=== PATIENT | female | born 1995 | race Caucasian/White ===

== ENCOUNTER 2016-05-24 02:59 | Outpatient (CLI) | payer MEDICAID ==
[2016-05-24 03:22] LABS: APPEARANCE,URINE CLEAR; BILIRUBIN,URINE NEGATIVE (NEGATIVE); GLUCOSE, URINE NEGATIVE (NEGATIVE); KETONES,URINE NEGATIVE (NEGATIVE); LEUKOCYTE ESTERASE,URINE NEGATIVE (NEGATIVE); NITRITE,URINE NEGATIVE (NEGATIVE); PROTEIN,URINE NEGATIVE (NEGATIVE); URINE SPECIFIC GRAVITY 1.014; UROBILINOGEN,URINE NEGATIVE mg/dL (<2.0)
[2016-05-24 03:39] LABS: URINE BARBITURATES SCREEN NEGATIVE; URINE METHADONE SCREEN NEGATIVE; URINE PHENCYCLIDINE SCREEN NEGATIVE
--- NOTE | 2016-05-24 04:45 | L&D Current Admission ---
Current Admit Datetime Report Generated by CPN: 05/24/2016 04:45 ADMISSION INFORMATION Chief Complaint: Contractions (05/24/2016 03:24:Lelo English RN) Chief Complaint: Uterine Cramping (04/18/2016 16:33:Rosanne Mensah RN)
--- NOTE | 2016-05-24 04:45 | L&D Flow Sheet ---
LD Flowsheet Datetime Report Generated by CPN: 05/24/2016 04:45 Datetime: 05/24/2016 03:48 Uterine Activity Monitor Mode: External; Palpation ([facility]) Frequency (min): 6-7 ([facility]) Quality: Mild ([facility], ) Duration (sec): 60-90 ([facility], ) Resting Tone (Palpate): Relaxed ([facility], ) Assessment A Monitor Mode: External US (Lelo Field, RN) FHR Baseline Rate : 115 (Lelo Field, RN) Variability: Moderate 6-25 bpm (Lelo Field, RN) Accelerations: 10X10 (Lelo Field, RN) Decelerations: None (Lelo Field, RN) Patient Care Patient Care Comments: Patient off monitor to walk floor for an hour and be rechecked (Lelo Field, RN) Datetime: 05/24/2016 03:46 Vital Signs NBP Sys/Shayla/Mean (mmHg): 107 (QS system process) : 57 (QS system process) : 76 (QS system process) Pulse: 79 (QS system process) Datetime: 05/24/2016 03:30 Uterine Activity Monitor Mode: External; Palpation (Lelo English RN) Frequency (min): 3.5-4.5 (Lelo English RN) Quality: Mild (Lelo English RN) Duration (sec): 60-110 (Lelo English RN) Resting Tone (Palpate): Relaxed (Lelo Field, RN) Assessment A Monitor Mode: External US (Lelo Field, RN) FHR Baseline Rate : 120 (Lelo Field, RN) Variability: Moderate 6-25 bpm (Lelo Field, RN) Accelerations: 15X15 (Lelo Field, RN) Decelerations: None (Lelo Field, RN) Datetime: 05/24/2016 03:24 Frequency (min): q5 min (Lelo Field, RN) Pain Pain Scale: 3 (Lelo Field, RN) Pain Presence: Intermittent (Lelo Field, RN) Pain Type: Cramping; Sharp (Lelo Field, RN) Pain Location: Abdomen; Back (Lelo Field, RN) Pain Goal: 0 (Lelo Field, RN) Pain Relief Measures: Comfort Measures (Lelo Field, RN) Pain Coping: Talking Through Contractions; Breathing Through Contractions (Lelo Field, RN) Vaginal Bleeding: Normal Show (Lelo Field, RN) Maternal Assessment Level of Consciousness: Fully Conscious (Lelo Field, RN) DTR's/Clonus: DTRs 1+; No Clonus (Lelo Field, RN) Headache: Denies (Lelo Field, RN) Breath Sounds, Left: Clear and Equal (Lelo Field, RN) Breath Sounds, Right: Clear and Equal (Lelo Field, RN) Nausea/Vomiting: Present ([facility], RN) RUQ Epigastric Pain: Denies (Lelo Field, RN) Teaching Instructional Method: Verbal; Patient Instructed; Family/Support Person Instructed; Verbalized Understanding (Lelo English RN) Plan of Care: Plan of Care Discussed (Lelo English RN) Unit Routine: [place] to Room; Call Laguerre; Bed; Visiting Policy; Waiting Areas; Infant Security; Phone/Cell Phone Use; Unit Personnel; Handwashing; Flu/Illness Precautions; Monitoring; Safety/Fall Risk Prevention; Bathroom Privileges (Lelo English RN) Datetime: 05/24/2016 03:19 Vaginal Exam Dilatation (cm): 1.0 (Lelo English RN) Effacement (%): 50 (Lelo English RN) Station: -2 (Lelo English RN) Exam by: TALIB [place] (Lelo English RN) Datetime: 05/24/2016 03:16 Vital Signs NBP Sys/Shayla/Mean (mmHg): 114 (QS system process) : 66 (QS system process) : 84 (QS system process) Pulse: 82 (QS system process)
--- NOTE | 2016-05-24 04:46 | L&D General Admission ---
General Admit Datetime Report Generated by CPN: 05/24/2016 04:45 INFORMATION Patient Age: 21 (04/18/2016 15:56:QS system process) EDC: 05/20/2016 00:00 (04/18/2016 16:04:Rosanne Mensah RN) EDC per Ultrasound: 05/20/2016 00:00 (04/18/2016 16:04:Marge Nino RN) : 4 (04/18/2016 16:04:Rosanne Mensah RN) Para: 1 (04/18/2016 16:04:Rosanne Mensah RN) Term: 1 (04/18/2016 16:04:Rosanne Mensah RN) : 0 (04/18/2016 16:04:Rosanne Mensah RN) Spontaneous Abortions: 2 (04/18/2016 16:04:Rosanne Mensah RN) Livin (04/18/2016 16:04:Rosanne Mensah RN) Cesareans: 0 (04/18/2016 16:04:Rosanne Mensah RN) VBACs: 0 (04/18/2016 16:04:Rosanne Mensah RN) Ectopic: 0 (04/18/2016 16:04:Rosanne Mensah RN) Multiple Births: 0 (04/18/2016 16:04:Rosanne Mensah RN) Baby, Number in Womb: 1 (04/18/2016 16:04:Rosanne Mensah RN) CARE Primary Motor Setter[facility] (04/18/2016 16:04:Lelo English RN) Adequate Care: Yes (04/18/2016 16:04:Rosanne Mensah RN) ALLERGIES Medication Allergy: Yes (04/18/2016 16:04:Lelo English RN) Medication Allergies: Penicillins (04/18/2016); amoxicillin (04/18/2016) (04/18/2016 15:56:QS system process) Latex Allergy: No Latex Allergies (04/18/2016 16:04:Lelo English RN) Food Allergies: N/A (04/18/2016 16:04:Lelo English RN) Environmental Allergies: N/A (04/18/2016 16:04:Lelo English RN) COMMUNICATION Primary Language: Romansh (04/18/2016 16:04:Rosanne Mensah RN) Medical Tx Preferred Language: Romansh (04/18/2016 16:04:Rosanne Mensah RN) Communication Barrier(s): None (04/18/2016 16:04:Lelo English RN) DEMOGRAPHICS Address: [address] [place] [address] (05/24/2016 02:59:QS system process) Address: [address] [place] [id number] (04/18/2016 15:56:QS system process) Zipcode: [address] (05/24/2016 02:59:QS system process) Zipcode: [address] (04/18/2016 15:56:QS system process) Home (04/18/2016 15:56:QS system process) N: [id number] (04/18/2016 15:56:QS system process) Next of Kin Name: JUNE ALICEA (04/18/2016 15:56:QS system process) Next of Kin (04/18/2016 15:56:QS system process) Next of Kin Relationship: OR (04/18/2016 15:56:QS system process) Date of : 1995 (04/18/2016 15:56:QS system process) Marital Status: Single (04/18/2016 15:56:QS system process) Sex: Female (04/18/2016 15:56:QS system process) Race: (04/18/2016 15:56:QS system process) Ethnicity: Non- or (04/18/2016 15:56:QS system process) Anabaptism: None (04/18/2016 15:56:QS system process) DRUG AND ALCOHOL USE Alcohol: No (04/18/2016 16:04:Rosanne Mensah RN) Cigarettes: Former Smoker. [id number] (04/18/2016 16:04:Rosanne Mensah RN) Marijuana: No (04/18/2016 16:04:Rosanne Mensah RN) Cocaine: No (04/18/2016 16:04:Rosanne Mensah RN) Other Illicit Drugs: No (04/18/2016 16:04:Rosanne Mensah RN) VACCINE HISTORY Influenza Vaccine: No (04/18/2016 16:04:Lelo English RN) Pneumococcal Vaccine: No (04/18/2016 16:04:Lelo English RN) Tetanus Vaccine: Yes (04/18/2016 16:04:Rosanne Mensah RN) Tdap Vaccine: Yes (04/18/2016 16:04:Rosanne Mensah RN) Hepatitis B Vaccine: Uncertain (04/18/2016 16:04:Lelo English RN) Automatic Lathe Operator: [facility] (04/18/2016 16:04:Rosanne Mensah RN) Feeding Preference: Breast (04/18/2016 16:04:Rosanne Mensah RN) Benefit of Breast Feed Discussed: Yes (04/18/2016 16:04:Lelo English RN) Circumcision: Yes (04/18/2016 16:04:Lelo English RN) Classes Attended: No (04/18/2016 16:04:Lelo English RN) Tubal Ligation: No (04/18/2016 16:04:Lelo English RN) Tubal Authorization Signed: N/A (04/18/2016 16:04:Lelo English RN) Consent: N/A (04/18/2016 16:04:Lelo English RN) Consent Signed: N/A (04/18/2016 16:04:Lelo English RN) Pain Management Plans: Natural; Medications (04/18/2016 16:04:Rosanne Mensah RN) Plans for Labor and Delivery: None (04/18/2016 16:04:Rosanne Mensah RN) Support Person: June Alicea (04/18/2016 16:04:Lelo English RN) Support Person Relationship: Significant Other (04/18/2016 16:04:Lelo English RN) Cultural/Spritual Practice: No (04/18/2016 16:04:Lelo English RN) Spir/Cult Dietary Needs: No (04/18/2016 16:04:Lelo English RN) LIVING SITUATION/DISCHARGE PLAN Living Arrangements: Apartment (04/18/2016 16:04:Lelo English RN) Adequate Access to:: Electric; Heat; Refrigeration; Plumbing/Running water; Phone; Transportation (04/18/2016 16:04:Lelo English RN) WIC Program: Yes (04/18/2016 16:04:Lelo English RN) Discharge Transfer Table Operator Helper Person: June Alicea (04/18/2016 16:04:Lelo English RN) Person to Help after Discharge: June Alicea (04/18/2016 16:04:Lelo English RN) Currently Using Commun Resources: No (04/18/2016 16:04:Lelo English RN) Outside Agency/Mapping Editor: No (04/18/2016 16:04:Lelo English RN) Car Seat for Discharge: Yes (04/18/2016 16:04:Lelo English RN) Adoption Requested: No (04/18/2016 16:04:Lelo English RN) Pt Contact w/infant Post : N/A (04/18/2016 16:04:Lelo English RN) LABS Blood Type: B Positive (04/18/2016 16:04:Marge Nino RN) Group Beta Strep: positive (04/18/2016 16:04:Marge Nino RN) RPR/VDRL: Nonreactive (04/18/2016 16:04:Marge Nino RN) HIV Exposure Test: Negative (04/18/2016 16:04:Marge Nino RN) Hepatitis B: Negative (04/18/2016 16:04:Marge Nino RN) Rubella: Immune (04/18/2016 16:04:Marge Nino RN) Rubella Titer: 2.43 (04/18/2016 16:04:Marge Nino RN) Varicella: Non Susceptible (04/18/2016 16:04:Marge Nino RN) OB/PREVIOUS HISTORY History of Previous : No (04/18/2016 16:04:Rosanne Mensah RN) History of Gestational Diabetes: No (04/18/2016 16:04:Rosanne Mensah RN) History of PIH: No (04/18/2016 16:04:Rosanne Mensah RN) History of Incompetent Cervix: No (04/18/2016 16:04:Rosanne Mensah RN) History of Placenta Previa/Abrup: No (04/18/2016 16:04:Rosanne Mensah RN) History of Macrosomia: No (04/18/2016 16:04:Rosanne Mensah RN) History of IUGR: No (04/18/2016 16:04:Rosanne Mensah RN) History of Hemorrhage: No (04/18/2016 16:04:Rosanne Mensah RN) History of Loss/Stillborn: No (04/18/2016 16:04:Rosanne Mensah RN) History of : No (04/18/2016 16:04:Rosanne Mensah RN) History of D (Rh) Sensitization: No (04/18/2016 16:04:Rosanne Mensah RN) History Recurrent Loss/Stillborn: No (04/18/2016 16:04:Rosanne Mensah RN) History Depression/PP Depression: No (04/18/2016 16:04:Rosanne Mensah RN) History of Uterine Anomaly/KELVIN: No (04/18/2016 16:04:Rosanne Mensah RN) History of Infertility: No (04/18/2016 16:04:Rosanne Mensah RN) History of ART Treatment: No (04/18/2016 16:04:Rosanne Mensah RN) History of KELVIN: No (04/18/2016 16:04:Rosanne Mensah RN) MEDICAL HISTORY Med Hx Diabetes: No (04/18/2016 16:04:Rosanne Mensah RN) Med Hx Hypertension: No (04/18/2016 16:04:Rosanne Mensah RN) Med Hx Heart Disease: No (04/18/2016 16:04:Rosanne Mensah RN) Med Hx Autoimmune Disorder: No (04/18/2016 16:04:Rosanne Mensah RN) Med Hx Kidney Disease/UTI: No (04/18/2016 16:04:Rosanne Mensah RN) Med Hx Neurologic/Epilepsy: No (04/18/2016 16:04:Rosanne Mensah RN) Med Hx Psychiatric Disorders: No (04/18/2016 16:04:Rosanne Mensah RN) Med Hx Hepatitis/Liver Disease: No (04/18/2016 16:04:Rosanne Mensah RN) Med Hx Varicosities/Phlebitis: No (04/18/2016 16:04:Rosanne Mensah RN) Med Hx Thyroid Dysfunction: No (04/18/2016 16:04:Rosanne Mensah RN) Med Hx Trauma/Violence: No (04/18/2016 16:04:Rosanne Mensah RN) Med Hx Blood Transfusion: No (04/18/2016 16:04:Rosanne Mensah RN) Med Hx Pulmonary (Asthma,TB): No (04/18/2016 16:04:Rosanne Mensah RN) Med Hx Breast: No (04/18/2016 16:04:Rosanne Mensah RN) Med Hx CITY RECORDER Surgery: No (04/18/2016 16:04:Rosanne Mensah RN) Med Hx Hospitalization/Surgery: No (04/18/2016 16:04:Rosanne Mensah, TALIB) Med Hx Anesthetic Complications: No (04/18/2016 16:04:Rosanne Mensah RN) Med Hx Abnormal Pap Smear: No (04/18/2016 16:04:Rosanne Mensah RN) Other Medical Diseases: No (04/18/2016 16:04:Rosanne Mensah RN) Med Hx Significant Family Hx: No (04/18/2016 16:04:Rosanne Mensah RN) Details of Med/Surg Hx: Hypothyroidism (04/18/2016 16:04:Rosanne Mensah RN) INFECTIOUS HISTORY Inf Hx Gonorrhea: No (04/18/2016 16:04:Rosanne Mensah RN) Inf Hx Chlamydia: No (04/18/2016 16:04:Rosanne Mensah RN) Inf Hx Syphilis: No (04/18/2016 16:04:Rosanne Mensah RN) Inf Hx HIV/AIDS: No (04/18/2016 16:04:Rosanne Mensah RN) Inf Hx Human Papilloma Virus: No (04/18/2016 16:04:Rosanne Mensah RN) Inf Hx Pt/Partner Genital Herpes: No (04/18/2016 16:04:Rosanne Mensah RN) Inf Hx Tuberculosis/Exposure: No (04/18/2016 16:04:Rosanne Mensah RN) Inf Hx Hepatitis B,C: No (04/18/2016 16:04:Rosanne Mensah RN) Inf Hx Rash or Viral Illness: No (04/18/2016 16:04:Rosanne Mensah RN) GENETIC HISTORY Gen Hx Age >=35 at LIA: No (04/18/2016 16:04:Rosanne Mensah RN) Gen Hx Thalassemia: No (04/18/2016 16:04:Rosanne Mensah RN) Gen Hx Congenital Heart Defect: No (04/18/2016 16:04:Rosanne Mensah RN) Gen Hx Neural Tube Defect: No (04/18/2016 16:04:Rosanne Mensah RN) Gen Hx Down's Syndrome: No (04/18/2016 16:04:Rosanne Mensah RN) Gen Hx Giovany-Sachs: No (04/18/2016 16:04:Rosanne Mensah RN) Gen Hx Sri: No (04/18/2016 16:04:Rosanne Mensah RN) Gen Hx Familial Dysautonomia: No (04/18/2016 16:04:Rosanne Mensah RN) Gen Hx Sickle Cell Disease/Trait: No (04/18/2016 16:04:Rosanne Mensah RN) Gen Hx Hemophilia/Blood Disorder: No (04/18/2016 16:04:Rosanne Mensah RN) Gen Hx Muscular Dystrophy: No (04/18/2016 16:04:Rosanne Mensah RN) Gen Hx Cystic Fibrosis: No (04/18/2016 16:04:Rosanne Mensah RN) Gen Hx [place] Chorea: No (04/18/2016 16:04:Rosanne Mensah RN) Gen Hx Mental Retardation/Autism: No (04/18/2016 16:04:Rosanne Mensah RN) Gen Hx Tested for Fragile X: No (04/18/2016 16:04:Rosanne Mensah RN) Gen Hx Other Inher/Chromosomal: No (04/18/2016 16:04:Rosanne Mensah RN) Gen Hx Maternal Metabolic DO: No (04/18/2016 16:04:Rosanne Mensah RN) Gen Hx Pt Father or FOB Defect: No (04/18/2016 16:04:Rosanne Mensah RN) Gen Hx Other Genetic History: No (04/18/2016 16:04:Rosanne Mensah RN) Gen Hx Drugs/Meds since LMP: No (04/18/2016 16:04:Rosanne Mensah RN)
--- NOTE | 2016-05-24 04:46 | L&D Admission Assessment ---
LD ADM ASMT Datetime Report Generated by CPN: 05/24/2016 04:45 PATIENT ASSESSMENT Assessment Type: Triage (05/24/2016 03:24:Lelo English RN) PAIN Pain Scale: 3 (05/24/2016 03:24:Lelo English RN) Pain Presence: Intermittent (05/24/2016 03:24:Lelo English RN) Pain Type: Cramping; Sharp (05/24/2016 03:24:Lelo English RN) Pain Location: Abdomen; Back (05/24/2016 03:24:Lelo English RN) Pain Goal: 0 (05/24/2016 03:24:Lelo English RN) Pain Related to Contraction: Yes (05/24/2016 03:24:Lelo English RN) CONTRACTIONS Frequency (min): 6-7 (05/24/2016 03:48:Lelo English RN) Frequency (min): 3.5-4.5 (05/24/2016 03:30:Lelo Egnlish RN) Frequency (min): q5 min (05/24/2016 03:24:Lelo English RN) Duration (sec): 60-90 (05/24/2016 03:48:Lelo English RN) Duration (sec): 60-110 (05/24/2016 03:30:Lelo English RN) Quality: Mild (05/24/2016 03:48:Lelo English RN) Quality: Mild (05/24/2016 03:30:Lelo English RN) Resting Tone [place]: Relaxed (05/24/2016 03:48:Lelo English RN) Resting Tone [place]: Relaxed (05/24/2016 03:30:Lelo English RN) VAGINAL EXAM Dilatation (cm): 1.0 (05/24/2016 03:19:Lelo English, RN) Effacement (%): 50 (05/24/2016 03:19:Lelo Field, RN) Station: -2 (05/24/2016 03:19:Lelo English, RN) NEURO Level of Consciousness: Fully Conscious (05/24/2016 03:24:Lelo Field RN) DTR's/Clonus: DTRs 1+; No Clonus (05/24/2016 03:24:Lelo English RN) Headache: Denies (05/24/2016 03:24:Lelo Field RN) Dizziness: No (05/24/2016 03:24:Lelo English RN) Blurred Vision: No (05/24/2016 [facility]) Extremity Numbness/Tingling : None (05/24/2016 03:24:[facility]) Extremity Movement: Full Range of Motion (05/24/2016 03:24:[facility], RN) CARDIOVASCULAR Heart Rhythm: Regular (05/24/2016 03:24:Lelo English RN) Nailbeds: [place] (05/24/2016 03:24:Lelo English RN) Capillary Refill: Less than 3 Seconds (05/24/2016 03:24:Lelo English RN) Lower Extremities Edema: None (05/24/2016 03:24:Lelo English RN) Lower Extremities Edema Degree: None (05/24/2016 03:24:Lelo English RN) Upper Extremities Edema: None (05/24/2016 03:24:Lelo English RN) Upper Extremities Edema Degree: None (05/24/2016 03:24:Lelo English RN) Facial Edema: None (05/24/2016 03:24:Lelo English RN) Jhony's Sign Left Leg: Negative (05/24/2016 03:24:Lelo English RN) Jhony's Sign Right Leg: Negative (05/24/2016 03:24:Lelo English RN) DVT RISK ASSESSMENT DVT Risk Age: Age less than 41 years (05/24/2016 03:24:Lelo English RN) DVT Risk BMI: BMI<31 (05/24/2016 03:24:Lelo English RN) DVT Risk Surgery: None Applicable (05/24/2016 03:24:Lelo English RN) DVT Risk Other: Women Only- or (<1 month) (05/24/2016 03:24:Lelo English RN) DVT Risk Total: 1 (05/24/2016 03:24:QS system process) DVT Risk Text: Low Risk (<10%) No specific measures, early ambulation (05/24/2016 03:24:QS system process) RESPIRATORY Respiratory Effort: Unlabored; Regular Rhythm; Equal Expansion (05/24/2016 03:24:Lelo English RN) Breath Sounds, Left: Clear and Equal (05/24/2016 03:24:Lelo English RN) Breath Sounds, Right: Clear and Equal (05/24/2016 03:24:Lelo English RN) Cough Productivity: None (05/24/2016 03:24:Lelo English RN) GASTROINTESTINAL Nausea/Vomiting: Present (05/24/2016 03:24:Lelo English RN) Bowel Sounds: Normoactive (05/24/2016 03:24:Lelo English RN) RUQ Epigastric Pain: Denies (05/24/2016 03:24:Lelo English RN) Bowel Patterns: Soft, Formed Stool (05/24/2016 03:24:Lelo English RN) Hemorrhoids: None (05/24/2016 03:24:Lelo English RN) Diet Type: Regular diet (05/24/2016 03:24:Lelo English RN) Last Meal: 05/23/2016 17:00 (05/24/2016 03:24:Lelo English RN) GENITOURINARY Bladder: Nondistended (05/24/2016 03:24:Lelo English RN) Frequency of Urination: No (05/24/2016 03:24:Lelo English RN) Urination Burning: No (05/24/2016 03:24:Lelo English RN) CVA Tenderness: No (05/24/2016 03:24:Lelo English RN) INTEGUMENTARY Skin Color: Normal for Race (05/24/2016 03:24:Lelo English RN) Skin Temperature: Warm (05/24/2016 03:24:Lelo English RN) Skin Moisture: Dry (05/24/2016 03:24:Lelo English RN) RAMESH SKIN ASSESSMENT Ramesh Scale Sensory Perception: No Impairment- Responds to verbal commands. Has no sensory deficit which would limit ability to feel or voice pain or discomfort (05/24/2016 03:24:Lelo English RN) Ramesh Scale Moisture: Rarely Moist- Skin is usually dry. Linen only requires changing at routine intervals (05/24/2016 03:24:Lelo English RN) Ramesh Scale Activity: Walks Frequently- Walks outside the room at least twice a day and inside room at least every 2 hours during the day. (05/24/2016 03:24:Lelo English RN) Ramesh Scale Mobility: No Limitations- Makes major and frequent changes in position without assistance (05/24/2016 03:24:Lelo English RN) Ramesh Scale Nutrition: Excellent- Eats most of every meal. Never refuses a meal. Usually eats a total of 4 or more servings of meat and dairy products. Occasionally eats between meals. Does not require supplementation (05/24/2016 03:24:Lelo English RN) Ramesh Scale Friction and Shear: No Apparent Problem- Moves in bed and in chair independently and has sufficient muscle strength to lift up completely during move. Maintains good position in bed or chair at all times (05/24/2016 03:24:Lelo English RN) Ramesh Scale Total: 23 (05/24/2016 03:24:QS system process) Ramesh Scale Risk: No Risk of Pressure Ulcer Noted at this Time (05/24/2016 03:24:QS system process) SUPPORT Family Support: Significant Other supportive, at bedside frequently (05/24/2016 03:24:Lelo , RN) Emotional State: Calm/Relaxed (05/24/2016 03:24:Lelo , RN) SAFETY Call Laguerre Within Reach: Yes (05/24/2016 03:24:Lelo English, TALIB) Side Rails Up: Yes (05/24/2016 03:24:Lelo English RN) Bed Wheels Locked: Yes (05/24/2016 03:24:Lelo English RN) Arm Bands Present: Yes (05/24/2016 03:24:Lelo Field RN) Isolation: [place] (05/24/2016 03:24:Lelo , RN) FALL SCREEN Fall Risk History of Falling: (0) No (05/24/2016 03:24:Lelo English RN) Fall Risk Secondary Diagnosis: (0) No (05/24/2016 03:24:Lelo English RN) Fall Risk Ambulatory Aid: (0) None/Bedrest/Wheelchair/Nurse Assist (05/24/2016 03:24:Lelo English RN) Fall Risk IV Therapy: (0) No (05/24/2016 03:24:Lelo English RN) Fall Risk Gait: (0) Normal/Bedrest/Immobile (05/24/2016 03:24:Lelo English RN) Fall Risk Mental Status: (0) Oriented to Own Ability (05/24/2016 03:24:Lelo English RN) Fall Risk Score: 0 (05/24/2016 03:24:QS system process) Fall Risk Score Definition: No Risk: No action required (05/24/2016 03:24:QS system process) RECENT TRAVEL/INFECTIOUS DISEASE Recent Exp Communicable Disease: No (05/24/2016 03:24:Lelo English RN) Cough or Fever: No (05/24/2016 03:24:Lelo English RN) Foreign Travel Past 10 Days: No (05/24/2016 03:24:Lelo English RN) Open Wounds or Sores: No (05/24/2016 03:24:Lelo English RN) Prior Antibiotic Resistance Tx: No (05/24/2016 03:24:Lelo English RN) Cultures Obtained: Not Applicable (05/24/2016 03:24:Lelo English RN) Isolation Initiated: No (05/24/2016 03:24:Lelo English RN) Pt/Family Education: Handwashing Hygiene (05/24/2016 03:24:Lelo English RN) BABY A FHR Baseline Rate (bpm) Baby A: 115 (05/24/2016 03:48:Lelo English RN) FHR Baseline Rate (bpm) Baby A: 120 (05/24/2016 03:30:Lelo English RN) Variability Baby A: Moderate 6-25 bpm (05/24/2016 03:48:Lelo English RN) Variability Baby A: Moderate 6-25 bpm (05/24/2016 03:30:Lelo English RN) Accelerations Baby A: 10X10 (05/24/2016 03:48:Lelo English RN) Accelerations Baby A: 15X15 (05/24/2016 03:30:Lelo English RN) Decelerations Baby A: None (05/24/2016 03:48:Lelo English RN) Decelerations Baby A: None (05/24/2016 03:30:Lelo English RN)
--- NOTE | 2016-05-25 10:59 | L&D Discharge Summary ---
OB Discharge Summary Datetime Report Generated by CPN: 05/25/2016 10:59 DISCHARGE DIAGNOSIS Diagnosis/Symptoms: False Labor Diagnoses/Symptoms Other: General Malaise, Not in labor Gestation: 40.4 Number of Babies in Womb: 1 Parity: 1 DIET/ACTIVITY/RESTRICTIONS Diet: Regular Activity: Normal Activity TEACHING/INSTRUCTIONS/REFERRALS Instructions Given To: Patient and significant other Instructions Understood: Patient Verbalized Understanding; Support Person Verbalized Understanding Referrals: None Educational Materials- Other: Dehydration DISCHARGE INFORMATION Discharged AMA: No Discharge Date/Time: 05/24/2016 05:14 Discharged To: Home Discharge Provider Name: Dr. Bernabe Accompanied By: Significant other Discharge Method: Ambulatory Condition: Stable FOLLOW UP INFORMATION Follow Up With: [facility] Follow Up On: As Scheduled Follow Up Phone Number: [employer] - Comments: Discussed dehydration and signs and symptoms with patient and significant other. Both, patient and significant other, verbalized understanding. Patient discharged home for false labor via ambulation in stable condition. GENERAL INSTR-CALL PROVIDER IF: Contractions: Contractions or cramps become more frequent than 8 in one hour or 4 in 20 minutes; Regular painful contractions every 5 minutes or less for one hour. Time your contractions from the beginning of one to the beginning of the next Pressure: Pressure in your vagina or lower abdomen that may feel like the baby is pushing down Period Like Cramps: Period-like cramps or low dull backache that may come and go Cramps/Diarrhea: Abdominal cramps that may be accompanied by diarrhea Gush of Fluid/Blood: Gush of fluid or blood from your vagina (it is normal to have spotting after vaginal exam or intercourse) Vaginal Discharge: Change in the type or amount of vaginal discharge Decreased Movement: Your baby is not moving as much as usual- 4 movements in 1 hour after drinking and resting on side Temperature: Temperature greater than 100.0(F) orally
--- NOTE | 2016-05-25 11:02 | Antepartum Discharge Summary ---
Antepartum DC Datetime Report Generated by CPN: 05/25/2016 11:02 DIET/ACTIVITY/RESTRICTIONS Diet: Regular (05/24/2016 05:11:Lelo , ) Activity: Normal Activity (05/24/2016 05:11:Lelo , RN) TEACHING/INSTRUCTIONS/REFERRALS Instructions Given To: Patient and significant other (05/24/2016 05:11:Lelo , ) Instructions Understood: Patient Verbalized Understanding; Support Person Verbalized Understanding (05/24/2016 05:11:Lelo English RN) Referrals: None (05/24/2016 05:11:Lelo English RN) Educational Materials- Other: Dehydration (05/24/2016 05:11:Lelo English RN) DISCHARGE INFORMATION Discharged AMA: No (05/24/2016 05:11:Lelo English RN) Discharge Date/Time: 05/24/2016 05:14 (05/24/2016 05:11:Lelo English RN) Discharged To: Home (05/24/2016 05:11:Lelo English RN) Discharge Provider Name: Dr. Bernabe (05/24/2016 05:11:Lelo English RN) Accompanied By: Significant other (05/24/2016 05:11:Lelo English RN) Discharge Method: Ambulatory (05/24/2016 05:11:Lelo English RN) Condition: Stable (05/24/2016 05:11:Lelo English RN) FOLLOW UP INFORMATION Follow Up With: [facility] (05/24/2016 05:11:Lelo English RN) Follow Up On: As Scheduled (05/24/2016 05:11:Lelo English RN) Follow Up Phone Number: [facility] - (05/24/2016 05:11:Lelo English RN) Comments: Discussed dehydration and signs and symptoms with patient and significant other. Both, patient and significant other, verbalized understanding. Patient discharged home for false labor via ambulation in stable condition. (05/24/2016 05:11:Lelo English RN) GENERAL INSTR-CALL PROVIDER IF: Contractions: Contractions or cramps become more frequent than 8 in one hour or 4 in 20 minutes; Regular painful contractions every 5 minutes or less for one hour. Time your contractions from the beginning of one to the beginning of the next (05/24/2016 05:11:Lelo English RN) Pressure: Pressure in your vagina or lower abdomen that may feel like the baby is pushing down (05/24/2016 05:11:Lelo English RN) Period Like Cramps: Period-like cramps or low dull backache that may come and go (05/24/2016 05:11:Lelo English RN) Cramps/Diarrhea: Abdominal cramps that may be accompanied by diarrhea (05/24/2016 05:11:Lelo English RN) Gush of Fluid/Blood: Gush of fluid or blood from your vagina (it is normal to have spotting after vaginal exam or intercourse) (05/24/2016 05:11:Lelo English RN) Vaginal Discharge: Change in the type or amount of vaginal discharge (05/24/2016 05:11:Lelo English RN) Decreased Movement: Your baby is not moving as much as usual- 4 movements in 1 hour after drinking and resting on side (05/24/2016 05:11:Lelo English RN) Temperature: Temperature greater than 100.0(F) orally (05/24/2016 05:11:Lelo English RN) Hypertension Signs/Symptoms: Severe headache which is not relieved 30 minutes after taking Tylenol(Acetaminophen); Blurry vision or spots before your eyes; Severe heartburn or pain on the upper right side of your abdomen that is not relieved by an antacid; Increased swelling in your face, hands or feet (05/24/2016 05:11:Lelo English RN) Urinary Output: Decreased urinary output or dark colored urine (05/24/2016 05:11:Lelo English RN)
--- NOTE | 2016-05-25 11:04 | Non Stress Test Report ---
Non Stress Test Datetime Report Generated by CPN: 05/25/2016 11:03 DEMOGRAPHIC EGA NST: 40.4 EGA NST: 35.3 INDICATION Indication for Study: Ordered by Provider Indication for Study (NST) Other: LC MONITORING Monitor Explained: Monitor Explained; Test Explained; Patient Verbalized Understanding Time on Monitor: 05/24/2016 03:13 Time off Monitor: 05/24/2016 03:48 NST Duration: 35 NST Duration: 42 NST INTERVENTIONS NST Interventions: PO Hydration; Reposition Patient Physician Notified NST: Dr. Bernabe BABY A: [id number] Movement : Present Contraction Frequency : 3.5-7 FHR Baseline : 115 Accelerations : 15X15 Decelerations : None Variability : Moderate 6-25bpm NST Review: Meets Criteria for Reactive NST NST Review and Verified By : Evette Borja RN NST Results: Reactive NST REPORT Report Trigger: Send Report
== END 2016-05-24 05:14 | disposition home or self-care (01) ==
LOC: LC 02:59
PROVIDERS: ATTEND Obstetrics & Gynecology
PROC: 4A1HXCZ Monitoring of Products of Conception, Cardiac Rate, External Approach (ICD-10-PCS; principal; 2016-05-24)
DX: O47.1 False labor at or after 37 completed weeks of gestation (principal); O26.813 Pregnancy related exhaustion and fatigue, third trimester; Z3A.40 40 weeks gestation of pregnancy
CPT/HCPCS: 59025; 80307; 81005

== ENCOUNTER 2016-05-25 11:57 | Inpatient (IN) | payer MEDICAID ==
--- NOTE | 2016-05-25 11:58 | Non Stress Test Report ---
Non Stress Test Datetime Report Generated by CPN: 05/25/2016 11:58 DEMOGRAPHIC EGA NST: 40.4 EGA NST: 35.3 INDICATION Indication for Study: Ordered by Provider Indication for Study: Ordered by Provider Indication for Study (NST) Other: LC MONITORING Monitor Explained: Monitor Explained; Test Explained; Patient Verbalized Understanding Monitor Explained: Monitor Explained; Test Explained; Patient Verbalized Understanding Time on Monitor: 05/24/2016 03:13 Time on Monitor: 04/18/2016 16:20 Time off Monitor: 05/24/2016 03:48 Time off Monitor: 04/18/2016 17:02 NST Duration: 35 NST Duration: 42 NST INTERVENTIONS NST Interventions: PO Hydration; Reposition Patient NST Interventions: None Physician Notified NST: Dr. Bernabe Physician Notified NST: Dr Jameson BABY A: [id number] BABY A Movement : Present Movement : Present Contraction Frequency : 3.5-7 Contraction Frequency : denies FHR Baseline : 115 FHR Baseline : 125 Accelerations : 15X15 Accelerations : 10X10 Decelerations : None Decelerations : None Variability : Moderate 6-25bpm Variability : Moderate 6-25bpm NST Review: Meets Criteria for Reactive NST NST Review: Meets Criteria for Reactive NST NST Review and Verified By : Evette Borja RN NST Results: Reactive NST Results: Reactive NST REPORT Report Trigger: Send Report
[2016-05-25 12:34] LABS: AMNISURE (ROM) POSITIVE (NEGATIVE)
[2016-05-25 12:35] LABS: APPEARANCE,URINE CLOUDY; BILIRUBIN,URINE NEGATIVE (NEGATIVE); GLUCOSE, URINE NEGATIVE (NEGATIVE); KETONES,URINE NEGATIVE (NEGATIVE); LEUKOCYTE ESTERASE,URINE LARGE (NEGATIVE); NITRITE,URINE NEGATIVE (NEGATIVE); PROTEIN,URINE NEGATIVE (NEGATIVE); URINE SPECIFIC GRAVITY 1.015; UROBILINOGEN,URINE NEGATIVE mg/dL (<2.0)
[2016-05-25 12:59] LABS: URINE BARBITURATES SCREEN NEGATIVE; URINE METHADONE SCREEN NEGATIVE; URINE PHENCYCLIDINE SCREEN NEGATIVE
[2016-05-25] MEDS ORDERED: RINGERS SOLUTION,LACTATED 1,000 ML IV PRN (12:59)
[2016-05-25] MEDS ORDERED: RINGERS SOLUTION,LACTATED 1,000 ML IV ONE (12:59)
[2016-05-25] MEDS ORDERED: FENTANYL/BUPIVACAINE/NS/PF 200 MCG/100 ML RTUINJ EPI ONE (13:03)
[2016-05-25] MEDS ORDERED: EPHEDRINE SULFATE INJ 50 MG/1 ML AMPULE ONE (13:03)
[2016-05-25] MEDS ORDERED: BUPIVACAINE HCL 0.25 % INJ/PF (2.5 MG/1 ML) 30 ML VIAL ONE (13:03)
[2016-05-25] MEDS ORDERED: CLINDAMYCIN 900 MG/D5W RTU 50 ML IV ONE (13:07)
[2016-05-25 13:15] LABS: ABSOLUTE LYMPHOCYTES (AUTO) 1.4 10^3/uL (0.5-4.7); ABSOLUTE MONOCYTES (AUTO) 0.9 10^3/uL (0.1-1.4); ABSOLUTE NEUT (AUTO) 13.3 10^3/uL (1.7-8.2); BASOPHILS % (AUTO) 0.2 % (0-2); EOSINOPHILS % (AUTO) 0.1 % (0-6); HEMOGLOBIN 12.7 g/dL (12.0-15.5); HGB HCT DIFFERENCE -1.9; MEAN CORPUSCULAR HGB CONC 31.8 g/dL (32.0-36.0); MEAN CORPUSCULAR VOLUME 88 fl (80-97); MONOCYTES % (AUTO) 5.9 % (3-13); RED BLOOD COUNT 4.54 10^6/uL (3.72-5.28); RED CELL DISTRIBUTION WIDTH 13.8 % (11.5-14.0); SEGMENTED NEUTROPHILS % (AUTO) 84.8 % (42-78); WHITE BLOOD COUNT 15.7 10^3/uL (4.0-10.5)
--- NOTE | 2016-05-25 16:01 | L&D Flow Sheet ---
LD Flowsheet Datetime Report Generated by CPN: 05/25/2016 16:00 Datetime: 05/25/2016 15:59 Temperature (F): 98.0 (Melanie Vitrano, RN) Temperature (C): 36.7 (QS system process) Temperature Route: Oral (Melanie Vitrano, RN) LaborFlag: Labor (QS system process) Datetime: 05/25/2016 15:58 I/O Interventions: Clear Liquids Given (Melanie Vitrano, RN) Datetime: 05/25/2016 15:55 Monitor Interventions for UA: [place] Adjusted (Melanie Vitrano, RN) Monitor Interventions for FHR: Ultrasound Adjusted (Melanie Vitrano, RN) Patient Position/Activity: Right Tilt; Tailors (Melanie Vitrano, RN) Datetime: 05/25/2016 15:52 NBP Sys/Shayla/Mean (mmHg): 116 (QS system process) : 82 (QS system process) : 94 (QS system process) Pulse: 107 (QS system process) LaborFlag: Labor (QS system process) Datetime: 05/25/2016 15:45 Monitor Mode: External (Melanie Vitrano, RN) Frequency (min): 2-3.5 (Melanie Vitrano, RN) Quality: Mild/Moderate (Melanie Vitrano, RN) Duration (sec): 50-70 (Melanie Vitrano, RN) Duration Criteria: Less than Two 120 Second Contractions (Melanie Vitrano, RN) Pattern: Normal: <= 5 Contractions in 10 Minutes (Melanie Vitrano, RN) Resting Tone (Palpate): Relaxed (Melanie Vitrano, RN) Monitor Mode: External US (Melanie Vitrano, RN) FHR Baseline Rate : 130 (Melanie Vitrano, RN) Variability: Moderate 6-25 bpm (Melanie Vitrano, RN) Accelerations: 15X15 (Melanie Vitrano, RN) Decelerations: None (Melanie Vitrano, RN) Datetime: 05/25/2016 15:37 NBP Sys/Shayla/Mean (mmHg): 116 (QS system process) : 83 (QS system process) : 96 (QS system process) Pulse: 95 (QS system process) Respirations: 16 (Melanie Vitrano, RN) LaborFlag: Labor (QS system process) Datetime: 05/25/2016 15:30 Monitor Mode: External (Melanie Vitrano, RN) Frequency (min): 2-3.5 (Melanie Vitrano, RN) Quality: Mild/Moderate (Melanie Vitrano, RN) Duration (sec): 50-70 (Melanie Vitrano, RN) Duration Criteria: Less than Two 120 Second Contractions (Melanie Vitrano, RN) Pattern: Normal: <= 5 Contractions in 10 Minutes (Melanie Vitrano, RN) Resting Tone (Palpate): Relaxed (Melanie Vitrano, RN) Monitor Mode: External US (Melanie Vitrano, RN) FHR Baseline Rate : 130 (Melanie Vitrano, RN) Variability: Moderate 6-25 bpm (Melanie Vitrano, RN) Accelerations: 15X15 (Melanie Vitrano, RN) Decelerations: Early (Melanie Vitrano, RN) Datetime: 05/25/2016 15:23 NBP Sys/Shayla/Mean (mmHg): 130 (QS system process) : 89 (QS system process) : 105 (QS system process) Pulse: 108 (QS system process) Respirations: 16 (Melanie Vitrano, RN) LaborFlag: Labor (QS system process) Datetime: 05/25/2016 15:19 I/O Interventions: Popsicle (Melanie Vitrano, RN) Datetime: 05/25/2016 15:15 Monitor Mode: External; Palpation (Melanie Vitrano, RN) Frequency (min): 2-3 (Melanie Vitrano, RN) Quality: Mild/Moderate (Melanie Vitrano, RN) Duration (sec): 50-80 (Melanie Vitrano, RN) Duration Criteria: Less than Two 120 Second Contractions (Melanie Vitrano, RN) Pattern: Normal: <= 5 Contractions in 10 Minutes (Melanie Vitrano, RN) Resting Tone (Palpate): Relaxed (Melanie Vitrano, RN) Monitor Mode: External US (Melanie Vitrano, RN) FHR Baseline Rate : 130 (Melanie Vitrano, RN) Variability: Moderate 6-25 bpm (Melanie Vitrano, RN) Accelerations: 15X15 (Melanie Vitrano, RN) Decelerations: None (Melanie Vitrano, RN) Datetime: 05/25/2016 15:11 Patient Position/Activity: Right Lateral; Peanut Ball (Melanie Vitrano, RN) Patient Care Comments: Pt denies needs, resting comfortably (Melanie Vitrano, RN) Datetime: 05/25/2016 15:07 NBP Sys/Shayla/Mean (mmHg): 106 (QS system process) : 63 (QS system process) : 79 (QS system process) Pulse: 88 (QS system process) Respirations: 16 (Melanie Vitrano, RN) LaborFlag: Labor (QS system process) Datetime: 05/25/2016 15:00 Monitor Mode: External; Palpation (EDGARDO Bhatia) Frequency (min): 2-2.5 (Ada Power, RNC) Quality: Mild/Moderate (Ada Power, RNC) Duration (sec): 60-120 (Ada Power, RNC) Duration Criteria: Less than Two 120 Second Contractions (Ada Power, RNC) Pattern: Normal: <= 5 Contractions in 10 Minutes (Ada Power, RNC) Resting Tone (Palpate): Relaxed (Ada Power, RNC) Monitor Mode: External US (Ada Power, RNC) FHR Baseline Rate : 135 (Ada Power, RNC) Variability: Moderate 6-25 bpm (Ada Power, RNC) Accelerations: None (Ada Power, RNC) Decelerations: Early (Ada Power, RNC) Datetime: 05/25/2016 14:52 NBP Sys/Shayla/Mean (mmHg): 111 (QS system process) : 74 (QS system process) : 87 (QS system process) Pulse: 93 (QS system process) Respirations: 16 (Melanieharman March RN) LaborFlag: Labor (QS system process) Datetime: 05/25/2016 14:45 Monitor Mode: External (Melanie Vitrano, RN) Frequency (min): 2-3 (Melanie Vitrano, RN) Duration (sec): 40-80 (Melanie Vitrano, RN) Duration Criteria: Less than Two 120 Second Contractions (Melanie Vitrano, RN) Pattern: Normal: <= 5 Contractions in 10 Minutes (Melanie Vitrano, RN) Resting Tone (Palpate): Relaxed (Melanie Vitrano, RN) Monitor Mode: External US (Melanie Vitrano, RN) FHR Baseline Rate : 130 (Melanie Vitrano, RN) Variability: Minimal - Undetectable to <=5 bpm (Melanie Vitrano, RN) Accelerations: None (Melanie Vitrano, RN) Decelerations: Early (Melanie Vitrano, RN) Datetime: 05/25/2016 14:37 NBP Sys/Shayla/Mean (mmHg): 111 (QS system process) : 76 (QS system process) : 89 (QS system process) Pulse: 93 (QS system process) Respirations: 16 (Melanie Vitrano, RN) LaborFlag: Labor (QS system process) Datetime: 05/25/2016 14:30 Monitor Mode: External (Melanie Vitrano, RN) Frequency (min): 2-3 (Melanie Vitrano, RN) Quality: Moderate (Melanie Vitrano, RN) Duration (sec): 50-80 (Melanie Vitrano, RN) Duration Criteria: Less than Two 120 Second Contractions (Melanie Vitrano, RN) Pattern: Normal: <= 5 Contractions in 10 Minutes (Melanie Vitrano, RN) Resting Tone (Palpate): Relaxed (Melanie Vitrano, RN) Monitor Mode: External US (Melanie Vitrano, RN) FHR Baseline Rate : 130 (Melanie Vitrano, RN) Variability: Minimal - Undetectable to <=5 bpm (Melanie Vitrano, RN) Accelerations: None (Melanie Vitrano, RN) Decelerations: Early; Late (Melanie Vitrano, RN) Datetime: 05/25/2016 14:29 Patient Care Comments: Warm blankets, juice provided (Melanie Vitrano, RN) Datetime: 05/25/2016 14:23 Pain Presence: None/Denies (Melanie Vitrano, RN) Pain Type: N/A (Melanie Vitrano, RN) Patient Position/Activity: Left Lateral; Peanut Ball (Melanie Vitrano, RN) LaborFlag: Labor (QS system process) Datetime: 05/25/2016 14:22 IV/Blood Work: IV Infusing per Order (Melanie Vitrano, RN) Patient Care Comments: 125 mL/hour (Melanie Vitrano, RN) Datetime: 05/25/2016 14:21 Patient Position/Activity: Left Lateral (Melanie Vitrano, RN) Datetime: 05/25/2016 14:19 NBP Sys/Shayla/Mean (mmHg): 129 (QS system process) : 79 (QS system process) : 99 (QS system process) Pulse: 92 (QS system process) Respirations: 16 (Melanie Vitrano, RN) Medication Comments: Ephedrine 5 mg IV (Melanie Vitrano, RN) LaborFlag: Labor (QS system process) Datetime: 05/25/2016 14:17 NBP Sys/Shayla/Mean (mmHg): 129 (QS system process) : 79 (QS system process) : 97 (QS system process) Pulse: 93 (QS system process) Respirations: 16 (Melanie Vitrano, RN) LaborFlag: Labor (QS system process) Datetime: 05/25/2016 14:15 NBP Sys/Shayla/Mean (mmHg): 126 (QS system process) : 86 (QS system process) : 100 (QS system process) Pulse: 103 (QS system process) Respirations: 16 (Melanie Vitrano, RN) Monitor Mode: External (Melanie Vitrano, RN) Frequency (min): 2-3 (Melanie Vitrano, RN) Quality: Mild/Moderate (Melanie Vitrano, RN) Duration (sec): 50-80 (Melanie Vitrano, RN) Duration Criteria: Less than Two 120 Second Contractions (Melanie Vitrano, RN) Pattern: Normal: <= 5 Contractions in 10 Minutes (Melanie Vitrano, RN) Resting Tone (Palpate): Relaxed (Melanie Vitrano, RN) Monitor Mode: External US (Melanie Vitrano, RN) FHR Baseline Rate : 130 (Melanie Vitrano, RN) Variability: Moderate 6-25 bpm (Melanie Vitrano, RN) Accelerations: 15X15 (Melanie Vitrano, RN) Decelerations: Prolonged (Melanie Vitrano, RN) Medication Comments: Ephedrine 5 mg IV (Melanie Vitrano, RN) Anesthesia Interventions Other: Ephedrine (Melanie Vitrano, RN) LaborFlag: Labor (QS system process) Datetime: 05/25/2016 14:14 NBP Sys/Shayla/Mean (mmHg): 124 (QS system process) : 85 (QS system process) : 100 (QS system process) Pulse: 101 (QS system process) LaborFlag: Labor (QS system process) Datetime: 05/25/2016 14:09 Actions for Decelerations: Side to Side; IV Bolus; Sterile Vaginal Exam (Melanie TALIB March) Exam by: Best March RN (Melanie TALIB March) Vaginal Exam Comments: No change (Melanie March RN) Patient Position/Activity: Right Lateral (Melanie TALIB March) Datetime: 05/25/2016 14:08 Patient Position/Activity: Left Lateral (Melanie Vitrano, RN) Datetime: 05/25/2016 14:07 IV/Blood Work: IV Infusing per Order; New IV Bag Hung; IV Bag Number @ 2 (Melanie March RN) Patient Care Comments: 125 mL/hour (Melanie Vitrano, RN) Datetime: 05/25/2016 14:06 Patient Position/Activity: Left Tilt; Semi-Fowlers (Melanie Vitrano, RN) Datetime: 05/25/2016 14:05 I/O Interventions: Macias Cath Inserted (Melanie Vitrano, RN) Datetime: 05/25/2016 14:03 Temperature (F): 98.0 (Melanie Vitrano, RN) Temperature (C): 36.7 (QS system process) Temperature Route: Oral (Melanie Vitrano, RN) LaborFlag: Labor (QS system process) Datetime: 05/25/2016 14:01 NBP Sys/Shayla/Mean (mmHg): 151 (QS system process) : 84 (QS system process) : 105 (QS system process) Pulse: 90 (QS system process) Respirations: 16 (Melanie Vitrano, RN) LaborFlag: Labor (QS system process) Datetime: 05/25/2016 14:00 Monitor Mode: External (Melanie Vitrano, RN) Frequency (min): 2-3 (Melanie Vitrano, RN) Quality: Mild/Moderate (Melanie Vitrano, RN) Duration (sec): 50-80 (Melanie Vitrano, RN) Duration Criteria: Less than Two 120 Second Contractions (Melanie Vitrano, RN) Pattern: Normal: <= 5 Contractions in 10 Minutes (Melanie Vitrano, RN) Resting Tone (Palpate): Relaxed (Melanie Vitrano, RN) Monitor Mode: External US (Melanie Vitrano, RN) FHR Baseline Rate : 130 (Melanie Vitrano, RN) Variability: Moderate 6-25 bpm (Melanie Vitrano, RN) Accelerations: 15X15 (Melanie Vitrano, RN) Decelerations: Early (Melanie Vitrano, RN) Datetime: 05/25/2016 13:59 NBP Sys/Shayla/Mean (mmHg): 123 (QS system process) : 89 (QS system process) : 102 (QS system process) Pulse: 94 (QS system process) Respirations: 16 (Melanie Vitrano, RN) LaborFlag: Labor (QS system process) Datetime: 05/25/2016 13:58 Anesthesia Level Check: T10- Umbilicus (Melanie Vitrano, RN) Datetime: 05/25/2016 13:56 Monitor Interventions for UA: [place] Adjusted (Melanie Vitrano, RN) Monitor Interventions for FHR: Ultrasound Adjusted (Melanie Vitrano, RN) Patient Position/Activity: Left Tilt; Low Fowlers (Melanie Vitrano, RN) Datetime: 05/25/2016 13:55 NBP Sys/Shayla/Mean (mmHg): 159 (QS system process) : 97 (QS system process) : 121 (QS system process) Pulse: 95 (QS system process) Respirations: 16 (Melanie Vitrano, RN) LaborFlag: Labor (QS system process) Datetime: 05/25/2016 13:54 NBP Sys/Shayla/Mean (mmHg): 147 (QS system process) : 104 (QS system process) : 119 (QS system process) Pulse: 96 (QS system process) Respirations: 17 (Melanie Vitrano, RN) LaborFlag: Labor (QS system process) Datetime: 05/25/2016 13:53 NBP Sys/Shayla/Mean (mmHg): 142 (QS system process) : 96 (QS system process) : 115 (QS system process) Pulse: 98 (QS system process) Respirations: 17 (Melanie Vitrano, RN) Epidural Procedure: Loading Dose (Melanie Vitrano, RN) LaborFlag: Labor (QS system process) Datetime: 05/25/2016 13:52 Pulse: 95 (QS system process) SpO2 (%): 100 (QS system process) Epidural Procedure: Cath Placed; Test Dose (Melanie Vitrano, RN) LaborFlag: Labor (QS system process) Datetime: 05/25/2016 13:47 Pulse: 97 (QS system process) SpO2 (%): 100 (QS system process) Comments: Monitors removed from pt for epidural placement; RN remains at bedside to attempt to maintain fht during epidural (Melanie March RN) Procedure Verify: Correct Patient Identity; Correct Side and Site are Marked; Accurate Procedure Consent Form; Agreement on Procedure to be Done; Correct Patient Position; Relevant Images and Results are Properly Labeled and Displayed; Addressed Need to Administer Antibiotics or Fluids for Irrigation; Safety Precautions Based on Patient History or Medication Use (Melanie March RN) Anesthesia Plans: Epidural (Melanie March RN) Epidural Positioning: Sitting (Melaine March RN) Anesthesia Comments: Dr Sow at bedside to do epidural and obtain consent from patient. (Melanie March RN) LaborFlag: Labor (QS system process) Datetime: 05/25/2016 13:43 Procedure Verify: Correct Patient Identity; Correct Side and Site are Marked; Accurate Procedure Consent Form; Agreement on Procedure to be Done; Relevant Images and Results are Properly Labeled and Displayed; Addressed Need to Administer Antibiotics or Fluids for Irrigation; Safety Precautions Based on Patient History or Medication Use (Melanie March RN) Anesthesia Plans: Epidural (Melanie March RN) Anesthesia Comments: Dr. Sow at bedside (Melanie March RN) Datetime: 05/25/2016 13:36 Hygiene: Underpad Changed (Melanie Vitrano, RN) Datetime: 05/25/2016 13:34 I/O Interventions: Up to BR (Melanie Vitrano, RN) Datetime: 05/25/2016 13:31 Dilatation (cm): 4.0 (Melanie Vitraldair RN) Effacement (%): 80 (Melanie Vitraldair RN) Station: -2 (Melanie VitrTALIB quinteros) Exam by: Best March RN (Melanie March RN) Patient Care Comments: Pt reporting urge to have BM (Melanie March RN) Datetime: 05/25/2016 13:30 Monitor Mode: External; Palpation (Melanie March RN) Frequency (min): 2-3.5 (Melanie March RN) Quality: Mild/Moderate (Melanie March RN) Duration (sec): 50-80 (Melanie March RN) Duration Criteria: Less than Two 120 Second Contractions (Melanie March RN) Pattern: Normal: <= 5 Contractions in 10 Minutes (Melanie March RN) Resting Tone (Palpate): Relaxed (Melanie March RN) Monitor Mode: Internal Scalp Electrode (Melanie March RN) FHR Baseline Rate : 130 (Melanie March RN) Variability: Moderate 6-25 bpm (Melanie March RN) Accelerations: 15X15 (Melanie March RN) Decelerations: None (Melanie March RN) Procedure Verify: Correct Patient Identity; Correct Side and Site are Marked; Accurate Procedure Consent Form; Agreement on Procedure to be Done; Relevant Images and Results are Properly Labeled and Displayed; Addressed Need to Administer Antibiotics or Fluids for Irrigation; Safety Precautions Based on Patient History or Medication Use (Melanie March RN) Anesthesia Plans: Epidural (Melanie March RN) Anesthesia Comments: Dr. Sow called for epidural; provider states he will be available in 10-15 min (Melanie March RN) Datetime: 05/25/2016 13:19 Medication Comments: Clindyamycin 900 mg IVPB (Melanie Anca, RN) Datetime: 05/25/2016 13:16 Pain Coping: Requesting Pain Medication or Epidural (Melanie March RN) Patient Care Comments: IV started, 18 G L upper arm site WNL, LR bolusing for epidural per order (Melanie March RN) Procedure Verify: Correct Patient Identity; Correct Side and Site are Marked; Accurate Procedure Consent Form; Agreement on Procedure to be Done; Relevant Images and Results are Properly Labeled and Displayed; Addressed Need to Administer Antibiotics or Fluids for Irrigation; Safety Precautions Based on Patient History or Medication Use (Melanie March RN) Anesthesia Plans: Epidural (Melanie March RN) Datetime: 05/25/2016 13:15 Patient Care Comments: Consents reviewed and signed (Melanie Vitrano, RN) Datetime: 05/25/2016 13:14 Patient Care Comments: RNs continue to attempt IV (Melanie Vitrano, RN) Datetime: 05/25/2016 13:04 Patient Care Comments: Labs drawn (Melanie Vitrano, RN) Datetime: 05/25/2016 13:02 Patient Care Comments: RNs remain at bedside attempting IV (Melanie Vitrano, RN) Datetime: 05/25/2016 13:00 Monitor Mode: External; Palpation (Melanie Vitrano, RN) Frequency (min): 2-3.5 (Melanie Vitrano, RN) Quality: Mild/Moderate (Melanie Vitrano, RN) Duration (sec): 60-90 (Melanie Vitrano, RN) Duration Criteria: Less than Two 120 Second Contractions (Melanie Vitrano, RN) Pattern: Normal: <= 5 Contractions in 10 Minutes (Melanie Vitrano, RN) Resting Tone (Palpate): Relaxed (Melanie Vitrano, RN) Monitor Mode: External US (Melanie Vitrano, RN) FHR Baseline Rate : 125 (Melanie Vitrano, RN) Variability: Moderate 6-25 bpm (Melanie Vitrano, RN) Accelerations: 15X15 (Melanie Vitrano, RN) Decelerations: None (Melanie Vitrano, RN) Datetime: 05/25/2016 12:48 Patient Care Comments: RNs at bedside attemping IV (Melanie Vitrano, RN) Datetime: 05/25/2016 12:46 NBP Sys/Shayla/Mean (mmHg): 118 (QS system process) : 77 (QS system process) : 93 (QS system process) Pulse: 82 (QS system process) Respirations: 17 (Melanie Vitrano, RN) LaborFlag: Labor (QS system process) Datetime: 05/25/2016 12:30 Monitor Mode: External; Palpation (Melanie Vitrano, RN) Frequency (min): 2-3 (Melanie Vitrano, RN) Quality: Mild/Moderate (Melanie Vitrano, RN) Duration (sec): 50-80 (Melanie Vitrano, RN) Duration Criteria: Less than Two 120 Second Contractions (Melanie Vitrano, RN) Pattern: Normal: <= 5 Contractions in 10 Minutes (Melanie Vitrano, RN) Resting Tone (Palpate): Relaxed (Melanie Vitrano, RN) Monitor Mode: External US (Melanie Vitrano, RN) FHR Baseline Rate : 135 (Melanie Vitrano, RN) Variability: Moderate 6-25 bpm (Melanie Vitrano, RN) Accelerations: 15X15 (Melanie Vitrano, RN) Decelerations: None (Melanie Vitrano, RN) Datetime: 05/25/2016 12:21 Stage of : Labor (Melanie Vitrano, RN) Frequency (min): Unsure (Melanie Vitrano, RN) Pain Scale: 4 (Melanie Vitrano, RN) Pain Presence: Intermittent (Melanie Vitrano, RN) Pain Type: Contraction (Melanie Vitrano, RN) Pain Location: Abdomen (Melanie Vitrano, RN) Pain Relief Measures: Comfort Measures (Melanie Vitrano, RN) Pain Coping: Breathing Through Contractions (Melanie Vitrano, RN) Vaginal Bleeding: Scant (Melanie Vitrano, RN) Level of Consciousness: Fully Conscious (Melanie Vitrano, RN) DTR's/Clonus: DTRs 2+; No Clonus (Melanie Vitrano, RN) Headache: Denies (Melanie Vitrano, RN) Breath Sounds, Left: Clear and Equal (Melanie Vitrano, RN) Breath Sounds, Right: Clear and Equal (Melanie Vitrano, RN) Nausea/Vomiting: Present (Annotations: Nausea) (Melanie Vitrano, RN) RUQ Epigastric Pain: Denies (Melanie Vitrano, RN) LaborFlag: Labor (QS system process) Datetime: 05/25/2016 12:19 Dilatation (cm): 3.5 (Melanie March RN) Effacement (%): 70 (Melanie March, RN) Station: -2 (Melanie March, RN) Exam by: Best March RN (Melanie March, RN) Vaginal Bleeding: None (Melanie March, RN) Cervix, Consistency: Soft (Melanieharman March, RN) Cervix, Position: Posterior (Melanie March, RN) Datetime: 05/25/2016 12:17 NBP Sys/Shayla/Mean (mmHg): 114 (QS system process) : 69 (QS system process) : 87 (QS system process) Pulse: 88 (QS system process) Communication: Provider Orders Received (Melanie March RN) Communication Comments: Ang Powell CNM on unit, reviewed strip. Report given to include EGA 40.5, , pt complaints contractions and SROM, positive Amnisure, SVE, toco tracing, FHTs, VS, pt history. Orders to admit pt for labor and SROM, treat GBS with Clindamycin, epidural PRN. (Melanie March RN) Datetime: 05/25/2016 12:14 Patient Position/Activity: Left Tilt; Semi-Fowlers (Melanie March RN) I/O Interventions: Clear Liquids Given (Melanie March RN) Instructional Method: Verbal; Patient Instructed; Family/Support Person Instructed; Verbalized Understanding (Melanie March RN) Plan of Care: Plan of Care Discussed (Melanie March RN) Unit Routine: [place] to Room; Call Laguerre; Bed; Unit Personnel; Monitoring; Safety/Fall Risk Prevention; Bathroom Privileges (Melanie March RN)
[2016-05-25] MEDS ORDERED: OXYTOCIN/NORMAL SALINE 20 UNIT/1,000 ML RTUINJ ONE (19:01)
[2016-05-25] MEDS ORDERED: MISOPROSTOL 0.2 MG TABLET ONE (19:01)
[2016-05-25] MEDS ORDERED: LIDOCAINE 1% INJ-PF (10 MG/ML) 30 ML SDV ONE (19:01)
[2016-05-25] MEDS ORDERED: ONDANSETRON HCL INJ/PF 4 MG/2 ML SDV ONE (19:41)
--- NOTE | 2016-05-25 20:01 | L&D Flow Sheet ---
LD Flowsheet Datetime Report Generated by CPN: 05/25/2016 20:00 Datetime: 05/25/2016 19:54 Patient Position/Activity: Left Lateral; Peanut Ball (Melanie Vitrano, RN) Datetime: 05/25/2016 19:53 Patient Care Comments: States nausea is relieved (Melanie Vitrano, RN) Datetime: 05/25/2016 19:43 Medication Comments: Zofran 4 mg IV (Melanie Vitrano, RN) Datetime: 05/25/2016 19:39 Communication Comments: Orders from Dr. Barba for Zofran 4 gm IV x1 now (Melanie Vitrano, RN) Datetime: 05/25/2016 19:38 I/O Interventions: Ice Chips Given; Clear Liquids Given (Melanie Vitrano, RN) Patient Care Comments: Juice and ice given (Melanie Vitrano, RN) Datetime: 05/25/2016 19:36 Temperature (F): 98.6 (Melanie Vitrano, RN) Temperature (C): 37.0 (QS system process) Temperature Route: Axillary (Melanie Vitrano, RN) LaborFlag: Labor (QS system process) Datetime: 05/25/2016 19:35 Patient Care Comments: Pt states she is nauseated, requesting medication (Melanie Vitrano, RN) Datetime: 05/25/2016 19:34 Patient Position/Activity: Left Tilt; Semi-Fowlers (Melanie Vitrano, RN) Datetime: 05/25/2016 19:30 Monitor Mode: External (Melanie Vitrano, RN) Frequency (min): 1-3 (Melanie Vitrano, RN) Quality: Moderate to Strong (Melanie Vitrano, RN) Duration (sec): 40-70 (Melanie Vitrano, RN) Duration Criteria: Less than Two 120 Second Contractions (Melanie Vitrano, RN) Pattern: Normal: <= 5 Contractions in 10 Minutes (Melanie Vitrano, RN) Resting Tone (Palpate): Relaxed (Melanie Vitrano, RN) Monitor Mode: External US (Melanie Vitrano, RN) FHR Baseline Rate : 140 (Melanie Vitrano, RN) Variability: Moderate 6-25 bpm (Melanie Vitrano, RN) Accelerations: 15X15 (Melanie Vitrano, RN) Decelerations: Early (Melanie Vitrano, RN) Datetime: 05/25/2016 19:29 Communication Comments: Dr. Barba on unit, notified of SVE; no new orders, continue current POC (Melanie Vitrano, RN) Datetime: 05/25/2016 19:23 NBP Sys/Shayla/Mean (mmHg): 124 (QS system process) : 72 (QS system process) : 92 (QS system process) Pulse: 108 (QS system process) Respirations: 16 (Melanie Vitrano, RN) LaborFlag: Labor (QS system process) Datetime: 05/25/2016 19:15 Monitor Mode: External (Melanie Vitrano, RN) Frequency (min): 1-2 (Melanie Vitrano, RN) Quality: Moderate to Strong (Melanie Vitrano, RN) Duration (sec): 50-60 (Melanie Vitrano, RN) Duration Criteria: Less than Two 120 Second Contractions (Melanie Vitrano, RN) Pattern: Normal: <= 5 Contractions in 10 Minutes (Melanie Vitrano, RN) Resting Tone (Palpate): Relaxed (Melanie Vitrano, RN) Monitor Mode: External US (Melanie Vitrano, RN) FHR Baseline Rate : 140 (Melanie Vitrano, RN) Variability: Minimal - Undetectable to <=5 bpm (Melanie Vitrano, RN) Accelerations: 10X10 (Melanie Vitrano, RN) Decelerations: None (Melanie Vitrano, RN) Datetime: 05/25/2016 19:00 Monitor Mode: External; Palpation (Melanie Vitrano, RN) Frequency (min): 1-3 (Melanie Vitrano, RN) Quality: Moderate to Strong (Melanie Vitrano, RN) Duration (sec): 50-70 (Melanie Vitrano, RN) Duration Criteria: Less than Two 120 Second Contractions (Melanie Vitrano, RN) Pattern: Normal: <= 5 Contractions in 10 Minutes (Melanie Vitrano, RN) Resting Tone (Palpate): Relaxed (Melanie Vitrano, RN) Monitor Mode: External US (Melanie Vitrano, RN) FHR Baseline Rate : 120 (Melanie Vitrano, RN) Variability: Moderate 6-25 bpm (Melanie Vitrano, RN) Accelerations: 15X15 (Melanie Vitrano, RN) Decelerations: Prolonged (Melanie Vitrano, RN) Datetime: 05/25/2016 18:58 Patient Care Comments: Warm blankets given (Melanie Vitrano, RN) Datetime: 05/25/2016 18:56 Patient Position/Activity: Left Tilt; Tailors (Melanie Vitrano, RN) Datetime: 05/25/2016 18:53 NBP Sys/Shayla/Mean (mmHg): 103 (QS system process) : 73 (QS system process) : 84 (QS system process) Pulse: 110 (QS system process) Respirations: 16 (Melanie Vitrano, RN) LaborFlag: Labor (QS system process) Datetime: 05/25/2016 18:50 Dilatation (cm): 8.0 (Melanie Vitrano, RN) Effacement (%): 100 (Melanie Vitrano, RN) Station: 0 (Melanie Vitrano, RN) Exam by: Best March RN (Melanie Vitrano, RN) Patient Position/Activity: Left Tilt; Semi-Fowlers (Melanie Vitrano, RN) Datetime: 05/25/2016 18:45 Monitor Mode: External (Melanie Vitrano, RN) Frequency (min): 1-2 (Melanie Vitrano, RN) Quality: Moderate to Strong (Melanie Vitrano, RN) Duration (sec): 50-60 (Melanie Vitrano, RN) Duration Criteria: Less than Two 120 Second Contractions (Melanie Vitrano, RN) Pattern: Normal: <= 5 Contractions in 10 Minutes (Melanie Vitrano, RN) Resting Tone (Palpate): Relaxed (Melanie Vitrano, RN) Monitor Mode: External US (Melanie Vitrano, RN) FHR Baseline Rate : 125 (Melanie Vitrano, RN) Variability: Moderate 6-25 bpm (Melanie Vitrano, RN) Accelerations: 15X15 (Melanie Vitrano, RN) Decelerations: None (Melanie Vitrano, RN) Datetime: 05/25/2016 18:33 Provider Reviewed Strip: Yes (Melanie March RN) Communication: Provider at Bedside (Melanie March RN) Communication Comments: Dr. Barba at bedside, answering pt questions (Melanie March RN) Datetime: 05/25/2016 18:31 Monitor Interventions for UA: Marydel Adjusted (Melanie March RN) Monitor Interventions for FHR: Ultrasound Adjusted (Melanie March RN) Patient Position/Activity: Right Lateral; Peanut Ball (Melanie March, TALIB) Patient Care Comments: Pt comfortable, denies needs (Melanie March, RN) Datetime: 05/25/2016 18:30 Monitor Mode: External; Palpation (Melanie Vitrano, RN) Frequency (min): 2-3 (Melanie Vitrano, RN) Quality: Moderate to Strong (Melanie Vitrano, RN) Duration (sec): 40-60 (Melanie Vitrano, RN) Duration Criteria: Less than Two 120 Second Contractions (Melanie Vitrano, RN) Pattern: Normal: <= 5 Contractions in 10 Minutes (Melanie Vitrano, RN) Resting Tone (Palpate): Relaxed (Melanie Vitrano, RN) Monitor Mode: External US (Melanie Vitrano, RN) FHR Baseline Rate : 140 (Melanie Vitrano, RN) Variability: Moderate 6-25 bpm (Melanie Vitrano, RN) Accelerations: 15X15 (Melanie Vitrano, RN) Decelerations: Late; Variable (Melanie Vitrano, RN) Datetime: 05/25/2016 18:27 Temperature (F): 99.0 (Melanie Vitrano, RN) Temperature (C): 37.2 (QS system process) Temperature Route: Oral (Melanie Vitrano, RN) LaborFlag: Labor (QS system process) Datetime: 05/25/2016 18:22 NBP Sys/Shayla/Mean (mmHg): 107 (QS system process) : 59 (QS system process) : 77 (QS system process) Pulse: 90 (QS system process) Respirations: 16 (Melanie Vitrano, RN) LaborFlag: Labor (QS system process) Datetime: 05/25/2016 18:15 Monitor Mode: External (Melanie Vitrano, RN) Frequency (min): 2-3 (Melanie Vitrano, RN) Quality: Moderate to Strong (Melanie Vitrano, RN) Duration (sec): 50-60 (Melanie Vitrano, RN) Duration Criteria: Less than Two 120 Second Contractions (Melanie Vitrano, RN) Pattern: Normal: <= 5 Contractions in 10 Minutes (Melanie Vitrano, RN) Resting Tone (Palpate): Relaxed (Melanie Vitrano, RN) Monitor Mode: External US (Melanie Vitrano, RN) FHR Baseline Rate : 130 (Melanie Vitrano, RN) Variability: Moderate 6-25 bpm (Melanie Vitrano, RN) Accelerations: 15X15 (Melanie Vitrano, RN) Decelerations: Early (Melanie Vitrano, RN) Datetime: 05/25/2016 18:00 Monitor Mode: External; Palpation (Melanie Vitrano, RN) Frequency (min): 1-3 (Melanie Vitrano, RN) Quality: Moderate to Strong (Melanie Vitrano, RN) Duration (sec): 40-60 (Melanie Vitrano, RN) Duration Criteria: Less than Two 120 Second Contractions (Melanie Vitrano, RN) Pattern: Normal: <= 5 Contractions in 10 Minutes (Melanie Vitrano, RN) Resting Tone (Palpate): Relaxed (Melanie Vitrano, RN) Monitor Mode: External US (Melanie Vitrano, RN) FHR Baseline Rate : 140 (Melanie Vitrano, RN) Variability: Moderate 6-25 bpm (Melanie Vitrano, RN) Accelerations: 15X15 (Melanie Vitrano, RN) Decelerations: None (Melanie Vitrano, RN) Datetime: 05/25/2016 17:52 NBP Sys/Shayla/Mean (mmHg): 117 (QS system process) : 67 (QS system process) : 86 (QS system process) Pulse: 95 (QS system process) Respirations: 16 (Melanie Vitrano, RN) LaborFlag: Labor (QS system process) Datetime: 05/25/2016 17:45 Monitor Mode: External (Melanie Vitrano, RN) Frequency (min): 1-3 (Melanie Vitrano, RN) Quality: Moderate to Strong (Melanie Vitrano, RN) Duration (sec): 40-70 (Melanie Vitrano, RN) Duration Criteria: Less than Two 120 Second Contractions (Melanie Vitrano, RN) Pattern: Normal: <= 5 Contractions in 10 Minutes (Melanie Vitrano, RN) Resting Tone (Palpate): Relaxed (Melanie Vitrano, RN) Monitor Mode: External US (Melanie Vitrano, RN) FHR Baseline Rate : 140 (Melanie Vitrano, RN) Variability: Minimal - Undetectable to <=5 bpm (Melanie Vitrano, RN) Accelerations: 10X10 (Melanie Vitrano, RN) Decelerations: None (Melanie Vitrano, RN) Datetime: 05/25/2016 17:38 Patient Position/Activity: Left Lateral; Peanut Ball (Melanie Vitrano, RN) Datetime: 05/25/2016 17:30 Monitor Mode: External (Melanie Vitrano, RN) Frequency (min): 1-3 (Melanie Vitrano, RN) Quality: Moderate to Strong (Melanie Vitrano, RN) Duration (sec): 40-60 (Melanie Vitrano, RN) Duration Criteria: Less than Two 120 Second Contractions (Melanie Vitrano, RN) Pattern: Normal: <= 5 Contractions in 10 Minutes (Melanie Vitrano, RN) Resting Tone (Palpate): Relaxed (Melanie Vitrano, RN) Monitor Mode: External US (Melanie Vitrano, RN) FHR Baseline Rate : 135 (Melanie Vitrano, RN) Variability: Minimal - Undetectable to <=5 bpm (Melanie Vitrano, RN) Accelerations: 15X15 (Melanie Vitrano, RN) Decelerations: None (Melanie Vitrano, RN) Datetime: 05/25/2016 17:15 Monitor Mode: External; Palpation (Ada Steve RNC) Frequency (min): 2-2.5 (Ada Steve, RNC) Quality: Moderate to Strong (Ada Steve, RNC) Duration (sec): 60-90 (Ada Steve, RNC) Duration Criteria: Less than Two 120 Second Contractions (Ada Steve, RNC) Pattern: Normal: <= 5 Contractions in 10 Minutes (Ada Power, RNC) Resting Tone (Palpate): Relaxed (Ada Power, RNC) Monitor Mode: External US (Ada Power, RNC) FHR Baseline Rate : 145 (Ada Power, RNC) Variability: Moderate 6-25 bpm (Ada Power, RNC) Accelerations: None (Ada Power, RNC) Decelerations: None (Ada Power, RNC) Datetime: 05/25/2016 17:00 Monitor Mode: External; Palpation (Ada Power, RNC) Frequency (min): 2-2.5 (Ada Power, RNC) Quality: Moderate to Strong (Ada Power, RNC) Duration (sec): 60-90 (Ada Power, RNC) Duration Criteria: Less than Two 120 Second Contractions (Ada Power, RNC) Pattern: Normal: <= 5 Contractions in 10 Minutes (Ada Power, RNC) Resting Tone (Palpate): Relaxed (Ada Power, RNC) Monitor Mode: External US (Ada Power, RNC) FHR Baseline Rate : 145 (Ada Power, RNC) Variability: Minimal - Undetectable to <=5 bpm (Ada Power, RNC) Accelerations: 15X15 (Ada Power, RNC) Decelerations: Variable (Ada Power, RNC) Datetime: 05/25/2016 16:53 NBP Sys/Shayla/Mean (mmHg): 118 (QS system process) : 68 (QS system process) : 87 (QS system process) Pulse: 105 (QS system process) Respirations: 16 (Melanie March RN) LaborFlag: Labor (QS system process) Datetime: 05/25/2016 16:48 Patient Position/Activity: Left Tilt; Low Fowlers (Melanie March RN) Patient Care Comments: Pt resting, denies needs (Melanie March RN) Communication Comments: Ang Powell CNM on unit, reviewed strip, updated on SVE. No new orders, continue current POC. (Melanie March RN) Datetime: 05/25/2016 16:47 Dilatation (cm): 6.5 (Melanie Vitrano, RN) Effacement (%): 100 (Melanie Vitrano, RN) Station: 0 (Melanie Vitrano, RN) Exam by: R. Vitrano, RN (Melanie Vitrano, RN) Datetime: 05/25/2016 16:45 Monitor Mode: External (Melanie Vitrano, RN) Frequency (min): 1-3 (Melanie Vitrano, RN) Quality: Moderate to Strong (Melanie Vitrano, RN) Duration (sec): 50-60 (Melanie Vitrano, RN) Duration Criteria: Less than Two 120 Second Contractions (Melanie Vitrano, RN) Pattern: Normal: <= 5 Contractions in 10 Minutes (Melanie Vitrano, RN) Resting Tone (Palpate): Relaxed (Melanie Vitrano, RN) Monitor Mode: External US (Melanie Vitrano, RN) FHR Baseline Rate : 130 (Melanie Vitrano, RN) Variability: Moderate 6-25 bpm (Melanie Vitrano, RN) Accelerations: 15X15 (Melanie Vitrano, RN) Decelerations: Variable (Melanie Vitrano, RN) Datetime: 05/25/2016 16:30 Monitor Mode: External (Melanie Vitrano, RN) Frequency (min): 2-3 (Melanie Vitrano, RN) Quality: Moderate to Strong (Melanie Vitrano, RN) Duration (sec): 40-60 (Melanie Vitrano, RN) Duration Criteria: Less than Two 120 Second Contractions (Melanie Vitrano, RN) Pattern: Normal: <= 5 Contractions in 10 Minutes (Melanie Vitrano, RN) Resting Tone (Palpate): Relaxed (Melanie Vitrano, RN) Monitor Mode: External US (Melanie Vitrano, RN) FHR Baseline Rate : 130 (Melanie Vitrano, RN) Variability: Minimal - Undetectable to <=5 bpm (Melanie Vitrano, RN) Accelerations: 15X15 (Melanie Vitrano, RN) Decelerations: None (Melanie Vitrano, RN) Datetime: 05/25/2016 16:22 NBP Sys/Shayla/Mean (mmHg): 119 (QS system process) : 68 (QS system process) : 87 (QS system process) Pulse: 93 (QS system process) Respirations: 16 (Melanie Vitrano, RN) LaborFlag: Labor (QS system process) Datetime: 05/25/2016 16:15 Monitor Mode: External; Palpation (Melanie Vitrano, RN) Frequency (min): 2-3 (Melanie Vitrano, RN) Quality: Moderate to Strong (Melanie Vitrano, RN) Duration (sec): 50-70 (Melanie Vitrano, RN) Duration Criteria: Less than Two 120 Second Contractions (Melanie Vitrano, RN) Pattern: Normal: <= 5 Contractions in 10 Minutes (Melanie Vitrano, RN) Resting Tone (Palpate): Relaxed (Melanie Vitrano, RN) Monitor Mode: External US (Melanie Vitrano, RN) FHR Baseline Rate : 130 (Melanie Vitrano, RN) Variability: Moderate 6-25 bpm (Melanie Vitrano, RN) Accelerations: 15X15 (Melanie Vitrano, RN) Decelerations: None (Melanie Vitrano, RN) Datetime: 05/25/2016 16:07 NBP Sys/Shayla/Mean (mmHg): 125 (QS system process) : 68 (QS system process) : 90 (QS system process) Pulse: 102 (QS system process) Respirations: 16 (Melanie Vitrano, RN) LaborFlag: Labor (QS system process) Datetime: 05/25/2016 16:00 Monitor Mode: External; Palpation (Melanie March, RN) Monitor Interventions for UA: Marydel Adjusted (Melanieharman March, RN) Frequency (min): 2-3 (Melanie Anca, RN) Quality: Moderate (Melanie Anca, RN) Duration (sec): 50-70 (Melanie Anca, RN) Duration Criteria: Less than Two 120 Second Contractions (Melanie Anca, RN) Pattern: Normal: <= 5 Contractions in 10 Minutes (Melanie Anca, RN) Resting Tone (Palpate): Relaxed (Melanie March, RN) Monitor Mode: External US (Melanie March, RN) FHR Baseline Rate : 130 (Melanie Anca, RN) Variability: Moderate 6-25 bpm (Melanie Anca, RN) Accelerations: 15X15 (Melanie Anca, RN) Decelerations: None (Melanie Anca, RN)
[2016-05-25] MEDS ORDERED: ONDANSETRON HCL INJ/PF 4 MG/2 ML SDV IV ONE (20:30)
[2016-05-25] MEDS ORDERED: CLINDAMYCIN 900 MG/D5W RTU 50 ML IV SCH (21:00)
[2016-05-25] MEDS ORDERED: ACETAMINOPHEN WITH CODEINE #3 TABLET PO PRN ×2 (22:10)
[2016-05-25] MEDS ORDERED: MEASLES,MUMPS&RUBELLA VACC/PF 0.5 ML VIAL SUBCUT PRN (22:10)
[2016-05-25] MEDS ORDERED: ZOLPIDEM TARTRATE 5 MG TABLET PO PRN (22:10)
[2016-05-25] MEDS ORDERED: DIBUCAINE 1% OINTMENT 28 GM TP PRN (22:10)
[2016-05-25] MEDS ORDERED: BENZOCAINE/MENTHOL AEROSOL SPRAY 56 ML TOP PRN (22:10)
[2016-05-25] MEDS ORDERED: OXYTOCIN/NORMAL SALINE 20 UNIT/1,000 ML RTUINJ IV PRN (22:10)
[2016-05-25] MEDS ORDERED: DIPH/PERTUSS(ACELL)/TETANUS VAC/PF 0.5 ML SYR (>=10YO) IM PRN (22:10)
--- NOTE | 2016-05-25 22:11 | Delivery Summary ---
Del Sum A-C Datetime Report Generated by CPN: 05/25/2016 22:10 ADMISSION DATA Chief Complaint: Uterine Contractions; Suspected Ruptured Membranes Indication for Induction: Not Applicable Admission Impression: Term, Intrauterine ; Active Labor; Ruptured Membranes Admission Impression Comments: SROM 1130 today Admit Provider Comments: SROM at 1130 on 05/25/26 Proven for 7lbs 1 oz Hypothyroidism-on Levothyroxine GBS positive- Clindamycin to be used See records DELIVERY PERSONNEL Delivery Doctor:: Candelaria Barba MD Labor and Delivery Nurse:: Melanie March RNforest landscape ecology professor Nurse:: Pat Borja RN Incendiary Powder Mixer/APPAREL MERCHANDISER: Cipriano Horan, APPAREL MERCHANDISER MATERNAL INFORMATION Delivery Anesthesia: Epidural Medications After Delivery: Pitocin Drip 20 Units/1000ml NSS Estimated Blood Loss (ml): 350 Maternal Complications: None Provider Comments: over intact perineum, no lacs. live male ap 8/9. placenta spontaneous intact 3vc. no complications LABOR SUMMARY EDC: 05/20/2016 00:00 No. Babies in Womb: 1 Attempted: No Labor Anesthesia: Epidural LABOR INFORMATION Reason for Induction: Not Applicable Onset of Labor: 05/25/2016 11:30 Complete Dilatation: 05/25/2016 20:00 Oxytocin: N/A Group B Beta Strep: positive Antibiotics # of Doses: 1 Antibiotics Time of Last Dose: 1319 Name of Antibiotic Given: Clindamycin 900 mg Steroids Given: None Reason Steroids Not Administered: Not Applicable MEMBRANES Membranes Rupture Method: Spontaneous Rupture of Membranes: 05/25/2016 11:30 Length of Rupture (hr): 8.95 Amniotic Fluid Color: Clear Amniotic Fluid Amount: Moderate Amniotic Fluid Odor: Normal STAGES OF LABOR Stage 1 hr: 8 Stage 1 min: 30 Stage 2 hr: 0 Stage 2 min: 27 Stage 3 hr: 0 Stage 3 min: 5 Total Time in Labor hr: 9 Total Time in Labor min: 2 VAGINAL DELIVERY Episiotomy: None Laceration Extension: N/A Laceration Type: None Laceration Repair: Not Applicable Sponge Count Correct: N/A Sharps Count Correct: N/A CSECTION DELIVERY Primary Indication: N/A Secondary Indication: N/A CSection Incidence: N/A Labor: N/A Elective: N/A CSection Incision: N/A BABY A INFORMATION Delivery Date/Time: 05/25/2016 20:27 Method of Delivery: Vaginal Born in Route : No : N/A Forceps: N/A Vacuum Extraction: N/A Shoulder Dystocia : No PRESENTATION/POSITION BABY A Presentation: Cephalic Cephalic Presentation: Vertex Vertex Position: Right Occipital Anterior Breech Presentation: N/A PLACENTA INFORMATION BABY A Placenta Delivery Time : 05/25/2016 20:32 Placenta Method of Delivery: Spontaneous Placenta Status: Delivered SCORES BABY A Heart Rate 1 min: >100 bpm Resp Effort 1 min: Good Cry Reflex Irritability 1 min: Cough or Sneeze or Pulls Away Muscle Tone 1 min: Some Flexion of Extremities Color 1 min: Body [place], Extremities Blue Resuscitation Effort 1 min: Tactile Stimulation SCORE 1 MIN: 8 Heart Rate 5 min: >100 bpm Resp Effort 5 min: Good Cry Reflex Irritability 5 min: Cough or Sneeze or Pulls Away Muscle Tone 5 min: Active Motion Color 5 min: Body [place], Extremities Blue Resuscitation Effort 5 min: Tactile Stimulation SCORE 5 MIN: 9 INFORMATION BABY A Gestational Age at Delivery: 40.5 Gestational Status: Full Term- 39- 40.6 Weeks Infant Outcome : Liveborn Condition : Stable Infant Sex: Male IDENTIFICATION BABY A Verification Date/Time: 05/25/2016 20:38 ID Band Number: [id number] Mother's Name Verified: Yes Infant RN Verifying Infant: SMarty Yeager, RN _ CMarty GillHalsey, RN WEIGHT/LENGTH BABY A Birthweight (gm): 3455 Weight (lb): 7 Weight (oz): 10 Infant Length (in): 21.50 Length (cm): 54.61 CORD INFORMATION BABY A No. Cord Vessels: 3 Nuchal Cord : N/A Cord Blood Taken: Yes-For Storage (Mom's Blood type +) Infant Suction: Mouth; Nose ASSESSMENT BABY A Infant Complications: Meconium Complications- Other: Terminal meconium Skin to Skin: Yes Skin to Skin Time (min): 60 BABY B INFORMATION : N/A SIGNATURES Signature: with User ID: [email or web address] : I personally evaluated and examined the patient in conjunction with the MLP and agree with the assessment, treatment plan and disposition.
[2016-05-25] MEDS ORDERED: IBUPROFEN 800 MG TABLET ONE (22:18)
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
--- NOTE | 2016-05-26 04:47 | L&D Discharge Summary ---
OB Discharge Summary Datetime Report Generated by CPN: 05/26/2016 04:45 DISCHARGE DIAGNOSIS Diagnosis/Symptoms: False Labor Diagnoses/Symptoms Other: General Malaise, Not in labor Gestation: 40.5 Number of Babies in Womb: 1 Parity: 1 DIET/ACTIVITY/RESTRICTIONS Diet: Regular Activity: Normal Activity TEACHING/INSTRUCTIONS/REFERRALS Instructions Given To: Patient and significant other Instructions Understood: Patient Verbalized Understanding; Support Person Verbalized Understanding Referrals: None Educational Materials- Other: Dehydration DISCHARGE INFORMATION Discharged AMA: No Discharge Date/Time: 05/24/2016 05:14 Discharged To: Home Discharge Provider Name: Dr. Bernabe Accompanied By: Significant other Discharge Method: Ambulatory Condition: Stable FOLLOW UP INFORMATION Follow Up With: [facility] Follow Up On: As Scheduled Follow Up Phone Number: [phone] - Comments: Discussed dehydration and signs and symptoms with patient and significant other. Both, patient and significant other, verbalized understanding. Patient discharged home for false labor via ambulation in stable condition. GENERAL INSTR-CALL PROVIDER IF: Contractions: Contractions or cramps become more frequent than 8 in one hour or 4 in 20 minutes; Regular painful contractions every 5 minutes or less for one hour. Time your contractions from the beginning of one to the beginning of the next Pressure: Pressure in your vagina or lower abdomen that may feel like the baby is pushing down Period Like Cramps: Period-like cramps or low dull backache that may come and go Cramps/Diarrhea: Abdominal cramps that may be accompanied by diarrhea Gush of Fluid/Blood: Gush of fluid or blood from your vagina (it is normal to have spotting after vaginal exam or intercourse) Vaginal Discharge: Change in the type or amount of vaginal discharge Decreased Movement: Your baby is not moving as much as usual- 4 movements in 1 hour after drinking and resting on side Temperature: Temperature greater than 100.0(F) orally
--- NOTE | 2016-05-26 04:47 | L&D Admission Assessment ---
LD ADM ASMT Datetime Report Generated by N: 05/26/2016 04:45 Assessment Type: Admission Assessment (05/25/2016 12:21:Melanie March RN) Weight (lb): 180 (05/25/2016 22:45:QS system process) Weight (lb): 180 (05/25/2016 12:37:QS system process) Weight (lb): 180 (05/25/2016 12:12:QS system process) Weight (lb): 178 (05/24/2016 05:02:QS system process) Weight (kg): 81.8 (05/25/2016 22:45:QS system process) Weight (kg): 81.8 (05/25/2016 12:37:QS system process) Weight (kg): 81.8 (05/25/2016 12:12:QS system process) Weight (kg): 80.9 (05/24/2016 05:02:QS system process) Total Wt Gain (lb): 7 (05/25/2016 22:45:QS system process) Total Wt Gain (lb): 7 (05/25/2016 12:37:QS system process) Total Wt Gain (lb): 7 (05/25/2016 12:12:QS system process) Total Wt Gain (lb): 5 (05/24/2016 05:02:QS system process) Wt Gain (kg): 3.4 (05/25/2016 22:45:QS system process) Wt Gain (kg): 3.4 (05/25/2016 12:37:QS system process) Wt Gain (kg): 3.4 (05/25/2016 12:12:QS system process) Wt Gain (kg): 2.4 (05/24/2016 05:02:QS system process) BMI: 30.9 (05/25/2016 22:45:QS system process) BMI: 30.9 (05/25/2016 12:37:QS system process) BMI: 30.9 (05/25/2016 12:12:QS system process) Pain Scale: 0 (05/25/2016 22:05:Melanie Anca, RN) Pain Scale: 0 (05/25/2016 21:35:Melanie Anca, RN) Pain Scale: 0 (05/25/2016 21:20:Melanie Anca, RN) Pain Scale: 0 (05/25/2016 21:05:Melanie Anca, RN) Pain Scale: 0 (05/25/2016 20:50:Melanie Anca, RN) Pain Scale: 0 (05/25/2016 20:35:Melanie Anca, RN) Pain Scale: 4 (05/25/2016 12:21:Melanie Anca, RN) Pain Presence: None/Denies (05/25/2016 22:05:Melanie Anca, RN) Pain Presence: None/Denies (05/25/2016 21:35:Melanie Anca, RN) Pain Presence: None/Denies (05/25/2016 21:20:Melanie Anca, RN) Pain Presence: None/Denies (05/25/2016 21:05:Melanie Anca RN) Pain Presence: None/Denies (05/25/2016 20:50:Melanie Anca RN) Pain Presence: None/Denies (05/25/2016 20:35:Melanie Anca, RN) Pain Presence: None/Denies (05/25/2016 14:23:Melanie Anca, RN) Pain Presence: Intermittent (05/25/2016 12:21:Melanie Anca, RN) Pain Type: N/A (05/25/2016 22:05:Melanie Anca, RN) Pain Type: N/A (05/25/2016 21:35:Melanie Anca, RN) Pain Type: N/A (05/25/2016 21:20:Melanie Anca RN) Pain Type: N/A (05/25/2016 21:05:Melanie Vitrano, RN) Pain Type: N/A (05/25/2016 20:50:Melanie Vitrano, RN) Pain Type: N/A (05/25/2016 20:35:Melanie Vitrano, RN) Pain Type: N/A (05/25/2016 14:23:Melanie Vitrano, RN) Pain Type: Contraction (05/25/2016 12:21:Melanie Vitrano, RN) Pain Location: Abdomen (05/25/2016 12:21:Melanie Vitrano, RN) Pain Related to Contraction: Yes (05/25/2016 12:21:Melanie Vitrano, RN) Frequency (min): 1.5-3 (05/25/2016 20:27:Melanie Vitrano, RN) Frequency (min): 1-2 (05/25/2016 20:15:Melanie Vitrano, RN) Frequency (min): 1-2 (05/25/2016 20:00:Melanie Vitrano, RN) Frequency (min): 1-3 (05/25/2016 19:45:Melanie Vitrano, RN) Frequency (min): 1-3 (05/25/2016 19:30:Melanie Vitrano, RN) Frequency (min): 1-2 (05/25/2016 19:15:Melanie Vitrano, RN) Frequency (min): 1-3 (05/25/2016 19:00:Melanie Vitrano, RN) Frequency (min): 1-2 (05/25/2016 18:45:Melanie Vitrano, RN) Frequency (min): 2-3 (05/25/2016 18:30:Melanie Vitrano, RN) Frequency (min): 2-3 (05/25/2016 18:15:Melanie Vitrano, RN) Frequency (min): 1-3 (05/25/2016 18:00:Melanie Vitrano, RN) Frequency (min): 1-3 (05/25/2016 17:45:Melanie Vitrano, RN) Frequency (min): 1-3 (05/25/2016 17:30:Melanie Vitrano, RN) Frequency (min): 2-2.5 (05/25/2016 17:15:EDGARDO Bhatia) Frequency (min): 2-2.5 (05/25/2016 17:00:EDGARDO Bhatia) Frequency (min): 1-3 (05/25/2016 16:45:Melanie Vitrano, RN) Frequency (min): 2-3 (05/25/2016 16:30:Melanie Vitrano, RN) Frequency (min): 2-3 (05/25/2016 16:15:Melanie Vitrano, RN) Frequency (min): 2-3 (05/25/2016 16:00:Melanie Vitrano, RN) Frequency (min): 2-3.5 (05/25/2016 15:45:Melanie Vitrano, RN) Frequency (min): 2-3.5 (05/25/2016 15:30:Melanie Vitrano, RN) Frequency (min): 2-3 (05/25/2016 15:15:Melanie Vitrano, RN) Frequency (min): 2-2.5 (05/25/2016 15:00:EDGARDO Bhatia) Frequency (min): 2-3 (05/25/2016 14:45:Melanie Vitrano, RN) Frequency (min): 2-3 (05/25/2016 14:30:Melanie Vitrano, RN) Frequency (min): 2-3 (05/25/2016 14:15:Melanie Vitrano, RN) Frequency (min): 2-3 (05/25/2016 14:00:Melanie Vitrano, RN) Frequency (min): 2-3.5 (05/25/2016 13:30:Melanie Vitrano, RN) Frequency (min): 2-3.5 (05/25/2016 13:00:Melanie Vitrano, RN) Frequency (min): 2-3 (05/25/2016 12:30:Melanie Vitrano, RN) Frequency (min): Unsure (05/25/2016 12:21:Melanie Vitrano, RN) Duration (sec): 60-80 (05/25/2016 20:27:Melanie Vitrano, RN) Duration (sec): 50-70 (05/25/2016 20:15:Melanie Vitrano, RN) Duration (sec): 50-70 (05/25/2016 20:00:Melanie Vitrano, RN) Duration (sec): 50-80 (05/25/2016 19:45:Melanie Vitrano, RN) Duration (sec): 40-70 (05/25/2016 19:30:Melanie Vitrano, RN) Duration (sec): 50-60 (05/25/2016 19:15:Melanie Vitrano, RN) Duration (sec): 50-70 (05/25/2016 19:00:Melanie Vitrano, RN) Duration (sec): 50-60 (05/25/2016 18:45:Melanie Vitrano, RN) Duration (sec): 40-60 (05/25/2016 18:30:Melanie Vitrano, RN) Duration (sec): 50-60 (05/25/2016 18:15:Melanie Vitrano, RN) Duration (sec): 40-60 (05/25/2016 18:00:Melanie Vitrano, RN) Duration (sec): 40-70 (05/25/2016 17:45:Melanie Vitrano, RN) Duration (sec): 40-60 (05/25/2016 17:30:Melanie Vitrano, RN) Duration (sec): 60-90 (05/25/2016 17:15:EDGARDO Bhatia) Duration (sec): 60-90 (05/25/2016 17:00:EDGARDO Bhatia) Duration (sec): 50-60 (05/25/2016 16:45:Melanie Vitrano, RN) Duration (sec): 40-60 (05/25/2016 16:30:Melanie Vitrano, RN) Duration (sec): 50-70 (05/25/2016 16:15:Melanie Vitrano, RN) Duration (sec): 50-70 (05/25/2016 16:00:Melanie Vitrano, RN) Duration (sec): 50-70 (05/25/2016 15:45:Melanie Vitrano, RN) Duration (sec): 50-70 (05/25/2016 15:30:Mleanie Vitrano, RN) Duration (sec): 50-80 (05/25/2016 15:15:Melanie Vitrano, RN) Duration (sec): 60-120 (05/25/2016 15:00:Ada Steve RN) Duration (sec): 40-80 (05/25/2016 14:45:Melanie Vitrano, RN) Duration (sec): 50-80 (05/25/2016 14:30:Melanie Vitrano, RN) Duration (sec): 50-80 (05/25/2016 14:15:Melanie Vitrano, RN) Duration (sec): 50-80 (05/25/2016 14:00:Melanie Vitrano, RN) Duration (sec): 50-80 (05/25/2016 13:30:Melanie Vitrano, RN) Duration (sec): 60-90 (05/25/2016 13:00:Melanie Vitrano, RN) Duration (sec): 50-80 (05/25/2016 12:30:Melanie Vitrano, RN) Quality: Moderate to Strong (05/25/2016 20:27:Melanie Vitrano, RN) Quality: Moderate to Strong (05/25/2016 20:15:Melanie Vitrano, RN) Quality: Moderate to Strong (05/25/2016 20:00:Melanie Vitrano, RN) Quality: Moderate to Strong (05/25/2016 19:45:Melanie Vitrano, RN) Quality: Moderate to Strong (05/25/2016 19:30:Melanie Vitrano, RN) Quality: Moderate to Strong (05/25/2016 19:15:Melanie Vitrano, RN) Quality: Moderate to Strong (05/25/2016 19:00:Melanie Vitrano, RN) Quality: Moderate to Strong (05/25/2016 18:45:Melanie Vitrano, RN) Quality: Moderate to Strong (05/25/2016 18:30:Melanie Vitrano, RN) Quality: Moderate to Strong (05/25/2016 18:15:Melanie Vitrano, RN) Quality: Moderate to Strong (05/25/2016 18:00:Melanie Vitrano, RN) Quality: Moderate to Strong (05/25/2016 17:45:Melanie Vitrano, RN) Quality: Moderate to Strong (05/25/2016 17:30:Melanie Vitrano, RN) Quality: Moderate to Strong (05/25/2016 17:15:Ada Steve RNC) Quality: Moderate to Strong (05/25/2016 17:00:EDGARDO Bhatia) Quality: Moderate to Strong (05/25/2016 16:45:Melanie Vitrano, RN) Quality: Moderate to Strong (05/25/2016 16:30:Melanie Vitrano, RN) Quality: Moderate to Strong (05/25/2016 16:15:Melanie Vitrano, RN) Quality: Moderate (05/25/2016 16:00:Melanie Vitrano, RN) Quality: Mild/Moderate (05/25/2016 15:45:Melanie Vitrano, RN) Quality: Mild/Moderate (05/25/2016 15:30:Melanie Vitrano, RN) Quality: Mild/Moderate (05/25/2016 15:15:Melanie Vitrano, RN) Quality: Mild/Moderate (05/25/2016 15:00:Ada Steve RNC) Quality: Moderate (05/25/2016 14:30:Melanie Vitrano, RN) Quality: Mild/Moderate (05/25/2016 14:15:Melanie Vitrano, RN) Quality: Mild/Moderate (05/25/2016 14:00:Melanie Vitrano, RN) Quality: Mild/Moderate (05/25/2016 13:30:Melanie Vitrano, RN) Quality: Mild/Moderate (05/25/2016 13:00:Melanie Vitrano, RN) Quality: Mild/Moderate (05/25/2016 12:30:Melanie Vitrano, RN) Pattern: Normal: <= 5 Contractions in 10 Minutes (05/25/2016 20:27:Melanie Vitrano, RN) Pattern: Normal: <= 5 Contractions in 10 Minutes (05/25/2016 20:15:Melanie Vitrano, RN) Pattern: Normal: <= 5 Contractions in 10 Minutes (05/25/2016 20:00:Melanie Vitrano, RN) Pattern: Normal: <= 5 Contractions in 10 Minutes (05/25/2016 19:45:Melanie Vitrano, RN) Pattern: Normal: <= 5 Contractions in 10 Minutes (05/25/2016 19:30:Melanie Vitrano, RN) Pattern: Normal: <= 5 Contractions in 10 Minutes (05/25/2016 19:15:Melanie Vitrano, RN) Pattern: Normal: <= 5 Contractions in 10 Minutes (05/25/2016 19:00:Melanie Vitrano, RN) Pattern: Normal: <= 5 Contractions in 10 Minutes (05/25/2016 18:45:Melanie Vitrano, RN) Pattern: Normal: <= 5 Contractions in 10 Minutes (05/25/2016 18:30:Melanie Vitrano, RN) Pattern: Normal: <= 5 Contractions in 10 Minutes (05/25/2016 18:15:Melanie Vitrano, RN) Pattern: Normal: <= 5 Contractions in 10 Minutes (05/25/2016 18:00:Melanie Vitrano, RN) Pattern: Normal: <= 5 Contractions in 10 Minutes (05/25/2016 17:45:Melanie Vitrano, RN) Pattern: Normal: <= 5 Contractions in 10 Minutes (05/25/2016 17:30:Melanie Vitrano, RN) Pattern: Normal: <= 5 Contractions in 10 Minutes (05/25/2016 17:15:EDGARDO Bhatia) Pattern: Normal: <= 5 Contractions in 10 Minutes (05/25/2016 17:00:EDGARDO Bhatia) Pattern: Normal: <= 5 Contractions in 10 Minutes (05/25/2016 16:45:Melanie Vitrano, RN) Pattern: Normal: <= 5 Contractions in 10 Minutes (05/25/2016 16:30:Melanie Vitrano, RN) Pattern: Normal: <= 5 Contractions in 10 Minutes (05/25/2016 16:15:Melanie Vitrano, RN) Pattern: Normal: <= 5 Contractions in 10 Minutes (05/25/2016 16:00:Melanie Vitrano, RN) Pattern: Normal: <= 5 Contractions in 10 Minutes (05/25/2016 15:45:Melanie Vitrano, RN) Pattern: Normal: <= 5 Contractions in 10 Minutes (05/25/2016 15:30:Melanie Vitrano, RN) Pattern: Normal: <= 5 Contractions in 10 Minutes (05/25/2016 15:15:Melanie Vitrano, RN) Pattern: Normal: <= 5 Contractions in 10 Minutes (05/25/2016 15:00:Ada Steve [facility]) Pattern: Normal: <= 5 Contractions in 10 Minutes (05/25/2016 14:45:Melanie Vitrano, RN) Pattern: Normal: <= 5 Contractions in 10 Minutes (05/25/2016 14:30:Melanie Vitrano, RN) Pattern: Normal: <= 5 Contractions in 10 Minutes (05/25/2016 14:15:Melanie Vitrano, RN) Pattern: Normal: <= 5 Contractions in 10 Minutes (05/25/2016 14:00:Melanie Vitrano, RN) Pattern: Normal: <= 5 Contractions in 10 Minutes (05/25/2016 13:30:Melanie Vitrano, RN) Pattern: Normal: <= 5 Contractions in 10 Minutes (05/25/2016 13:00:Melanie Vitrano, RN) Pattern: Normal: <= 5 Contractions in 10 Minutes (05/25/2016 12:30:Melanie Vitrano, RN) Resting Tone [place]: Relaxed (05/25/2016 20:27:Melanie Kedarano, RN) Resting Tone [place]: Relaxed (05/25/2016 20:15:Melanie Anca, RN) Resting Tone [place]: Relaxed (05/25/2016 20:00:Melanie Vitrano, RN) Resting Tone [place]: Relaxed (05/25/2016 19:45:Melanie Vitrano, RN) Resting Tone [place]: Relaxed (05/25/2016 19:30:Melanie Vitrano, RN) Resting Tone [place]: Relaxed (05/25/2016 19:15:Melanie Vitrano, RN) Resting Tone [place]: Relaxed (05/25/2016 19:00:Melanie Vitrano, RN) Resting Tone [place]: Relaxed (05/25/2016 18:45:Melanie Kedarano, RN) Resting Tone [place]: Relaxed (05/25/2016 18:30:Melanie Vitrano, RN) Resting Tone [place]: Relaxed (05/25/2016 18:15:Melaniemimi March, RN) Resting Tone [place]: Relaxed (05/25/2016 18:00:Melaniemimi March, RN) Resting Tone [place]: Relaxed (05/25/2016 17:45:Melaniemimi March, RN) Resting Tone [place]: Relaxed (05/25/2016 17:30:Melanie March RN) Resting Tone [place]: Relaxed (05/25/2016 17:15:EDGARDO Bhatia) Resting Tone [place]: Relaxed (05/25/2016 17:00:EDGARDO Bhatia) Resting Tone [place]: Relaxed (05/25/2016 16:45:Melaniemimi March RN) Resting Tone [place]: Relaxed (05/25/2016 16:30:Melanie March RN) Resting Tone [place]: Relaxed (05/25/2016 16:15:Melanie March RN) Resting Tone [place]: Relaxed (05/25/2016 16:00:Melanie March RN) Resting Tone [place]: Relaxed (05/25/2016 15:45:Melaniemimi March RN) Resting Tone [place]: Relaxed (05/25/2016 15:30:Melanie March RN) Resting Tone [place]: Relaxed (05/25/2016 15:15:Melaniemimi March RN) Resting Tone [place]: Relaxed (05/25/2016 15:00:EDGARDO Bhatia) Resting Tone [place]: Relaxed (05/25/2016 14:45:Melaniemimi March RN) Resting Tone [place]: Relaxed (05/25/2016 14:30:Melaniemimi March RN) Resting Tone [place]: Relaxed (05/25/2016 14:15:Melanie March RN) Resting Tone [place]: Relaxed (05/25/2016 14:00:Melaniemimi March RN) Resting Tone [place]: Relaxed (05/25/2016 13:30:Melaniemimi March RN) Resting Tone [place]: Relaxed (05/25/2016 13:00:Melanie March RN) Resting Tone [place]: Relaxed (05/25/2016 12:30:Melanie Vitrano, RN) Dilatation (cm): 10.0 (05/25/2016 20:00:Melanie Vitrano, RN) Dilatation (cm): 8.0 (05/25/2016 18:50:Melanie Vitrano, RN) Dilatation (cm): 6.5 (05/25/2016 16:47:Melanie Vitrano, RN) Dilatation (cm): 4.0 (05/25/2016 13:31:Melanie Vitrano, RN) Dilatation (cm): 3.5 (05/25/2016 12:19:Melanie Vitrano, RN) Dilatation (cm): 1.0 (05/24/2016 04:52:Lelo English RN) Effacement (%): 100 (05/25/2016 20:00:Melanie Kedarano, RN) Effacement (%): 100 (05/25/2016 18:50:Melanie Kedarano, RN) Effacement (%): 100 (05/25/2016 16:47:Melanie Vitrano, RN) Effacement (%): 80 (05/25/2016 13:31:Melanie Kedarano, RN) Effacement (%): 70 (05/25/2016 12:19:Melanie Kedarano, RN) Effacement (%): 50 (05/24/2016 04:52:Lelo English RN) Station: 2 (05/25/2016 20:00:Melanie Anca, RN) Station: 0 (05/25/2016 18:50:Melanie Anca, RN) Station: 0 (05/25/2016 16:47:Melanie Anca, RN) Station: -2 (05/25/2016 13:31:Melanie Anca, RN) Station: -2 (05/25/2016 12:19:Melanie Anca, RN) Station: -2 (05/24/2016 04:52:Lelo English RN) Membranes Status: Intact (05/24/2016 04:52:Lelo English RN) Level of Consciousness: Fully Conscious (05/25/2016 12:21:Melanie Anca, RN) DTR's/Clonus: DTRs 2+; No Clonus (05/25/2016 12:21:Melanie March RN) Headache: Denies (05/25/2016 12:21:Melanie March RN) Dizziness: No (05/25/2016 12:21:Melanie March RN) Blurred Vision: No (05/25/2016 12:21:Melanie March RN) Extremity Numbness/Tingling : None (05/25/2016 12:21:Melanie March RN) Extremity Movement: Full Range of Motion (05/25/2016 12:21:Melanie March RN) Heart Rhythm: Regular (05/25/2016 12:21:Melanie March RN) Nailbeds: [place] (05/25/2016 12:21:Melanie March RN) Capillary Refill: Less than 3 Seconds (05/25/2016 12:21:Melanie March RN) Lower Extremities Edema: None (05/25/2016 12:21:Melanie March RN) Lower Extremities Edema Degree: None (05/25/2016 12:21:Melanie March RN) Upper Extremities Edema: None (05/25/2016 12:21:Melanie March RN) Upper Extremities Edema Degree: None (05/25/2016 12:21:Melanie March RN) Facial Edema: None (05/25/2016 12:21:Melanie March RN) Jhony's Sign Left Leg: Negative (05/25/2016 12:21:Melanie March RN) Jhony's Sign Right Leg: Negative (05/25/2016 12:21:Melanie March RN) DVT Risk Age: Age less than 41 years (05/25/2016 12:21:Melanie March RN) DVT Risk BMI: BMI<31 (05/25/2016 12:21:Melanie March RN) DVT Risk Surgery: None Applicable (05/25/2016 12:21:Melanie March RN) DVT Risk Other: Women Only- or (<1 month) (05/25/2016 12:21:Melanie March RN) DVT Risk Total: 1 (05/25/2016 12:21:QS system process) DVT Risk Text: Low Risk (<10%) No specific measures, early ambulation (05/25/2016 12:21:QS system process) Respiratory Effort: Unlabored; Regular Rhythm; Equal Expansion (05/25/2016 12:21:Melanie March RN) Breath Sounds, Left: Clear and Equal (05/25/2016 12:21:Melanie March RN) Breath Sounds, Right: Clear and Equal (05/25/2016 12:21:Melanie March RN) Cough Productivity: None (05/25/2016 12:21:Melanie March RN) Nausea/Vomiting: Present (Annotations: Nausea) (05/25/2016 12:21:Melanie March RN) Bowel Sounds: Normoactive (05/25/2016 12:21:Melanie March RN) RUQ Epigastric Pain: Denies (05/25/2016 12:21:Melanie March RN) Bowel Patterns: Soft, Formed Stool (05/25/2016 12:21:Melanie March RN) Hemorrhoids: None (05/25/2016 12:21:Melanie March RN) Diet Type: Regular diet (05/25/2016 12:21:Melanie March RN) Last Meal: 05/24/2016 17:00 (05/25/2016 12:21:Melanie March RN) Bladder: Nondistended (05/25/2016 12:21:Melanie March RN) Frequency of Urination: No (05/25/2016 12:21:Melanie March RN) Urination Burning: No (05/25/2016 12:21:Melanie March RN) CVA Tenderness: No (05/25/2016 12:21:Melanie March RN) Vaginal Bleeding: None (05/25/2016 12:21:Melanie March RN) Vaginal Discharge Amount: Small (05/25/2016 12:21:Melanie March RN) Vaginal Discharge Color: N/A (05/25/2016 12:21:Melanie March RN) Vaginal Discharge Odor: Non-Odorous (05/25/2016 12:21:Melanie March RN) Vaginal Discharge Character: Thin (05/25/2016 12:21:Melanie March RN) Skin Color: Normal for Race (05/25/2016 12:21:Melanie March RN) Skin Temperature: Warm (05/25/2016 12:21:Melanie March RN) Skin Moisture: Dry (05/25/2016 12:21:Melanie March RN) Surgical Scars: N/A (05/25/2016 12:21:Melanie March RN) Body Piercings/Tattoos: Lip piercing, tattoos (05/25/2016 12:21:Melanie March RN) Lam Scale Sensory Perception: No Impairment- Responds to verbal commands. Has no sensory deficit which would limit ability to feel or voice pain or discomfort (05/25/2016 12:21:Melanie March RN) Lam Scale Moisture: Rarely Moist- Skin is usually dry. Linen only requires changing at routine intervals (05/25/2016 12:21:Melanie March RN) Lam Scale Activity: Walks Frequently- Walks outside the room at least twice a day and inside room at least every 2 hours during the day. (05/25/2016 12:21:Melanie March RN) Lam Scale Mobility: No Limitations- Makes major and frequent changes in position without assistance (05/25/2016 12:21:Melanie March RN) Lam Scale Nutrition: Excellent- Eats most of every meal. Never refuses a meal. Usually eats a total of 4 or more servings of meat and dairy products. Occasionally eats between meals. Does not require supplementation (05/25/2016 12:21:Melanie March RN) Lam Scale Friction and Shear: No Apparent Problem- Moves in bed and in chair independently and has sufficient muscle strength to lift up completely during move. Maintains good position in bed or chair at all times (05/25/2016 12:21:Melanie March RN) Lam Scale Total: 23 (05/25/2016 12:21:QS system process) Lam Scale Risk: No Risk of Pressure Ulcer Noted at this Time (05/25/2016 12:21:QS system process) Family Support: Significant Other supportive, at bedside frequently (05/25/2016 12:21:Melanie March RN) Emotional State: Calm/Relaxed (05/25/2016 12:21:Melanie March RN) Call [place] Within Reach: Yes (05/25/2016 12:21:Melanie March RN) Side Rails Up: Yes (05/25/2016 12:21:Melanie March RN) Bed Wheels Locked: Yes (05/25/2016 12:21:Melanie March RN) Arm Bands Present: Yes (05/25/2016 12:21:Melanie March RN) Isolation: [place] (05/25/2016 12:21:Melanie March RN) Fall Risk History of Falling: (0) No (05/25/2016 12:21:Melanie March RN) Fall Risk Secondary Diagnosis: (0) No (05/25/2016 12:21:Melanie March RN) Fall Risk Ambulatory Aid: (0) None/Bedrest/Wheelchair/Nurse Assist (05/25/2016 12:21:Melanie March RN) Fall Risk IV Therapy: (0) No (05/25/2016 12:21:Melanie March RN) Fall Risk Gait: (0) Normal/Bedrest/Immobile (05/25/2016 12:21:Melanie March RN) Fall Risk Mental Status: (0) Oriented to Own Ability (05/25/2016 12:21:Melanie March RN) Fall Risk Score: 0 (05/25/2016 12:21:QS system process) Fall Risk Score Definition: No Risk: No action required (05/25/2016 12:21:QS system process) Recent Exp Communicable Disease: No (05/25/2016 12:21:Melanie March RN) Cough or Fever: No (05/25/2016 12:21:Melanie March RN) Foreign Travel Past 10 Days: No (05/25/2016 12:21:Melanie March RN) Open Wounds or Sores: No (05/25/2016 12:21:Melanie March RN) Prior Antibiotic Resistance Tx: No (05/25/2016 12:21:Melanie March RN) Cultures Obtained: Not Applicable (05/25/2016 12:21:Melanie March RN) Isolation Initiated: No (05/25/2016 12:21:Melanie March RN) Pt/Family Education: Not Applicable (05/25/2016 12:21:Melanie March RN) FHR Baseline Rate (bpm) Baby A: 130 (05/25/2016 20:27:Melanie March RN) FHR Baseline Rate (bpm) Baby A: 130 (05/25/2016 20:15:Melanie March RN) FHR Baseline Rate (bpm) Baby A: 130 (05/25/2016 20:00:Melanie March RN) FHR Baseline Rate (bpm) Baby A: 140 (05/25/2016 19:45:Melanie March RN) FHR Baseline Rate (bpm) Baby A: 140 (05/25/2016 19:30:Melanie March RN) FHR Baseline Rate (bpm) Baby A: 140 (05/25/2016 19:15:Melanie March RN) FHR Baseline Rate (bpm) Baby A: 120 (05/25/2016 19:00:Melanie March RN) FHR Baseline Rate (bpm) Baby A: 125 (05/25/2016 18:45:Melanie March RN) FHR Baseline Rate (bpm) Baby A: 140 (05/25/2016 18:30:Melanie March RN) FHR Baseline Rate (bpm) Baby A: 130 (05/25/2016 18:15:Melanie March RN) FHR Baseline Rate (bpm) Baby A: 140 (05/25/2016 18:00:Melanie March RN) FHR Baseline Rate (bpm) Baby A: 140 (05/25/2016 17:45:Melanie March RN) FHR Baseline Rate (bpm) Baby A: 135 (05/25/2016 17:30:Melanie March RN) FHR Baseline Rate (bpm) Baby A: 145 (05/25/2016 17:15:EDGARDO Bhatia) FHR Baseline Rate (bpm) Baby A: 145 (05/25/2016 17:00:EDGARDO Bhatia) FHR Baseline Rate (bpm) Baby A: 130 (05/25/2016 16:45:Melanie March RN) FHR Baseline Rate (bpm) Baby A: 130 (05/25/2016 16:30:Melanie March RN) FHR Baseline Rate (bpm) Baby A: 130 (05/25/2016 16:15:Melanie March RN) FHR Baseline Rate (bpm) Baby A: 130 (05/25/2016 16:00:Melanie March RN) FHR Baseline Rate (bpm) Baby A: 130 (05/25/2016 15:45:Melanie March RN) FHR Baseline Rate (bpm) Baby A: 130 (05/25/2016 15:30:Melanie March RN) FHR Baseline Rate (bpm) Baby A: 130 (05/25/2016 15:15:Melanie March RN) FHR Baseline Rate (bpm) Baby A: 135 (05/25/2016 15:00:EDGARDO Bhatia) FHR Baseline Rate (bpm) Baby A: 130 (05/25/2016 14:45:Melanie March RN) FHR Baseline Rate (bpm) Baby A: 130 (05/25/2016 14:30:Melanie March RN) FHR Baseline Rate (bpm) Baby A: 130 (05/25/2016 14:15:Melanie March RN) FHR Baseline Rate (bpm) Baby A: 130 (05/25/2016 14:00:Melanie March RN) FHR Baseline Rate (bpm) Baby A: 130 (05/25/2016 13:30:Melanie March RN) FHR Baseline Rate (bpm) Baby A: 125 (05/25/2016 13:00:Melanie March RN) FHR Baseline Rate (bpm) Baby A: 135 (05/25/2016 12:30:Melanie March RN) Variability Baby A: Moderate 6-25 bpm (05/25/2016 20:27:Melanie March RN) Variability Baby A: Moderate 6-25 bpm (05/25/2016 20:15:Melanie Vitrano, RN) Variability Baby A: Minimal - Undetectable to <=5 bpm (05/25/2016 20:00:Melanie Vitrano, RN) Variability Baby A: Minimal - Undetectable to <=5 bpm (05/25/2016 19:45:Melanie Vitrano, RN) Variability Baby A: Moderate 6-25 bpm (05/25/2016 19:30:Melanie Vitrano, RN) Variability Baby A: Minimal - Undetectable to <=5 bpm (05/25/2016 19:15:Melanie Vitrano, RN) Variability Baby A: Moderate 6-25 bpm (05/25/2016 19:00:Melanie Vitrano, RN) Variability Baby A: Moderate 6-25 bpm (05/25/2016 18:45:Melanie Vitrano, RN) Variability Baby A: Moderate 6-25 bpm (05/25/2016 18:30:Melanie Vitrano, RN) Variability Baby A: Moderate 6-25 bpm (05/25/2016 18:15:Melanie Vitrano, RN) Variability Baby A: Moderate 6-25 bpm (05/25/2016 18:00:Melanie Vitrano, RN) Variability Baby A: Minimal - Undetectable to <=5 bpm (05/25/2016 17:45:Melanie Vitrano, RN) Variability Baby A: Minimal - Undetectable to <=5 bpm (05/25/2016 17:30:Melanie Vitrano, RN) Variability Baby A: Moderate 6-25 bpm (05/25/2016 17:15:EDGARDO Bhatia) Variability Baby A: Minimal - Undetectable to <=5 bpm (05/25/2016 17:00:EDGARDO Bhatia) Variability Baby A: Moderate 6-25 bpm (05/25/2016 16:45:Melanie Vitrano, RN) Variability Baby A: Minimal - Undetectable to <=5 bpm (05/25/2016 16:30:Melanie Vitrano, RN) Variability Baby A: Moderate 6-25 bpm (05/25/2016 16:15:Melanie Vitrano, RN) Variability Baby A: Moderate 6-25 bpm (05/25/2016 16:00:Melanie Vitrano, RN) Variability Baby A: Moderate 6-25 bpm (05/25/2016 15:45:Melanie Vitrano, RN) Variability Baby A: Moderate 6-25 bpm (05/25/2016 15:30:Melanie Vitrano, RN) Variability Baby A: Moderate 6-25 bpm (05/25/2016 15:15:Melanie Vitrano, RN) Variability Baby A: Moderate 6-25 bpm (05/25/2016 15:00:EDGARDO Bhatia) Variability Baby A: Minimal - Undetectable to <=5 bpm (05/25/2016 14:45:Melanie Vitrano, RN) Variability Baby A: Minimal - Undetectable to <=5 bpm (05/25/2016 14:30:Melanie Vitrano, RN) Variability Baby A: Moderate 6-25 bpm (05/25/2016 14:15:Melanie Vitrano, RN) Variability Baby A: Moderate 6-25 bpm (05/25/2016 14:00:Melanie Vitraldair, RN) Variability Baby A: Moderate 6-25 bpm (05/25/2016 13:30:Melanie Vitrano, RN) Variability Baby A: Moderate 6-25 bpm (05/25/2016 13:00:Melanie Vitrano, RN) Variability Baby A: Moderate 6-25 bpm (05/25/2016 12:30:Melanie Vitrano, RN) Accelerations Baby A: 15X15 (05/25/2016 20:27:Melanie Anca, RN) Accelerations Baby A: 15X15 (05/25/2016 20:15:Melanie Vitraldair, RN) Accelerations Baby A: 15X15 (05/25/2016 20:00:Melanie Vitrano, RN) Accelerations Baby A: 15X15 (05/25/2016 19:45:Melanie Vitrano, RN) Accelerations Baby A: 15X15 (05/25/2016 19:30:Melanie Vitrano, RN) Accelerations Baby A: 10X10 (05/25/2016 19:15:Melanie Vitraldair, RN) Accelerations Baby A: 15X15 (05/25/2016 19:00:Melanie Anca, RN) Accelerations Baby A: 15X15 (05/25/2016 18:45:Melanie Vitrano, RN) Accelerations Baby A: 15X15 (05/25/2016 18:30:Melanie March RN) Accelerations Baby A: 15X15 (05/25/2016 18:15:Melanie March RN) Accelerations Baby A: 15X15 (05/25/2016 18:00:Melanie March RN) Accelerations Baby A: 10X10 (05/25/2016 17:45:Melanie March RN) Accelerations Baby A: 15X15 (05/25/2016 17:30:Melanie March RN) Accelerations Baby A: None (05/25/2016 17:15:EDGARDO Bhatia) Accelerations Baby A: 15X15 (05/25/2016 17:00:EDGARDO Bhatia) Accelerations Baby A: 15X15 (05/25/2016 16:45:Melanie March RN) Accelerations Baby A: 15X15 (05/25/2016 16:30:Melanie March RN) Accelerations Baby A: 15X15 (05/25/2016 16:15:Melanie March RN) Accelerations Baby A: 15X15 (05/25/2016 16:00:Melanie March RN) Accelerations Baby A: 15X15 (05/25/2016 15:45:Melanie March RN) Accelerations Baby A: 15X15 (05/25/2016 15:30:Melanie March RN) Accelerations Baby A: 15X15 (05/25/2016 15:15:Melanie March RN) Accelerations Baby A: None (05/25/2016 15:00:EDGARDO Bhatia) Accelerations Baby A: None (05/25/2016 14:45:Melanie March RN) Accelerations Baby A: None (05/25/2016 14:30:Melanie March RN) Accelerations Baby A: 15X15 (05/25/2016 14:15:Melanie March RN) Accelerations Baby A: 15X15 (05/25/2016 14:00:Melanie March RN) Accelerations Baby A: 15X15 (05/25/2016 13:30:Melanie Vitrano, RN) Accelerations Baby A: 15X15 (05/25/2016 13:00:Melanie Anca, RN) Accelerations Baby A: 15X15 (05/25/2016 12:30:Melanie Vitrano, RN) Decelerations Baby A: Prolonged (05/25/2016 20:27:Melanie Anca, RN) Decelerations Baby A: Variable (05/25/2016 20:15:Melanie Vitrano, RN) Decelerations Baby A: Prolonged (05/25/2016 20:00:Melanie Anca, RN) Decelerations Baby A: Early (05/25/2016 19:45:Melanie Anca RN) Decelerations Baby A: Early (05/25/2016 19:30:Melanie Anca, RN) Decelerations Baby A: None (05/25/2016 19:15:Melanie Anca RN) Decelerations Baby A: Prolonged (05/25/2016 19:00:Melanie Anca, RN) Decelerations Baby A: None (05/25/2016 18:45:Melanie Anca, RN) Decelerations Baby A: Late; Variable (05/25/2016 18:30:Melanie Anca, RN) Decelerations Baby A: Early (05/25/2016 18:15:Melanie Anca RN) Decelerations Baby A: None (05/25/2016 18:00:Melanie Anca RN) Decelerations Baby A: None (05/25/2016 17:45:Melanie Anca RN) Decelerations Baby A: None (05/25/2016 17:30:Melanie Anca, RN) Decelerations Baby A: None (05/25/2016 17:15:EDGARDO Bhatia) Decelerations Baby A: Variable (05/25/2016 17:00:EDGARDO Bhatia) Decelerations Baby A: Variable (05/25/2016 16:45:Melanie Anca RN) Decelerations Baby A: None (05/25/2016 16:30:Melanie Anca RN) Decelerations Baby A: None (05/25/2016 16:15:Melanie March RN) Decelerations Baby A: None (05/25/2016 16:00:Melanie March RN) Decelerations Baby A: None (05/25/2016 15:45:Melanie March RN) Decelerations Baby A: Early (05/25/2016 15:30:Melanie March RN) Decelerations Baby A: None (05/25/2016 15:15:Melanie March RN) Decelerations Baby A: Early (05/25/2016 15:00:EDGARDO Bhatia) Decelerations Baby A: Early (05/25/2016 14:45:Melanie March RN) Decelerations Baby A: Early; Late (05/25/2016 14:30:Melanie March RN) Decelerations Baby A: Prolonged (05/25/2016 14:15:Melanie March RN) Decelerations Baby A: Early (05/25/2016 14:00:Melanie March RN) Decelerations Baby A: None (05/25/2016 13:30:Melanie March RN) Decelerations Baby A: None (05/25/2016 13:00:Melanie March RN) Decelerations Baby A: None (05/25/2016 12:30:Melanie March RN) Assessment Flag: Admission Assessment (05/25/2016 12:21:QS system process)
--- NOTE | 2016-05-26 04:47 | L&D Current Admission ---
Current Admit Datetime Report Generated by CPN: 05/26/2016 04:45 Current Admit Date/Time: 05/25/2016 12:17 (05/25/2016 12:58:Melanie March RN) Reason for Admission: Onset of Labor; Rupture of Membranes (05/25/2016 12:58:Melanie March RN) Chief Complaint: Contractions (05/25/2016 12:58:Melanie March RN) Chief Complaint: Contractions; Suspected Rupture of Membranes (05/25/2016 12:21:Melanie March RN) EGA per Dates: 40.5 (05/25/2016 12:58:QS system process) EGA per US: 40.5 (05/25/2016 12:58:QS system process) Method of Arrival: Wheelchair (05/25/2016 12:58:Melanie March RN) Admitted From: Home (05/25/2016 12:58:Melanie March RN) Reason for Induction: Not Applicable (05/25/2016 12:58:Melanie March RN) Records Available: Yes (05/25/2016 12:58:Melanie March RN) General Admission Information: Reviewed; Confirmed (05/25/2016 12:58:Melanie March RN) General Admission Reviewed By: Best March RN (05/25/2016 12:58:Melanie March RN) Other Belongings: See belongings consent (05/25/2016 12:58:Melanie March RN) Disposition of Belongings: Kept with Patient (05/25/2016 12:58:Melanie March RN) Advance Direct for Healthcare: No, and Wants No Information (05/25/2016 12:58:Melanie March RN) Durable Power of Technical Operations Vice President: No (05/25/2016 12:58:Melanie March RN) Living Will: No (05/25/2016 12:58:Melanie March RN) Organ Donor: Yes (05/25/2016 12:58:Melanie March RN) Pt Rights Information Given: Yes (05/25/2016 12:58:Melanie March RN) Pt Understands Pt Rights: Yes (05/25/2016 12:58:Melanie March RN) Knowledge Level: Understands L_D Process; Understands Diagnosis (05/25/2016 12:58:Melanie March RN) Barriers to Learning: Pain (05/25/2016 12:58:Melanie March RN) Learning Readiness: Motivated (05/25/2016 12:58:Melanie March RN) Learns Best By: 1 to 1 Instruction (05/25/2016 12:58:Melanie March RN) Learning Needs: Labor and Delivery Process; Pain Management; Symptoms to Report; Treatment Plan (05/25/2016 12:58:Melanie March RN) Dom Viol Threatened/Hurt: No (05/25/2016 12:58:Melanie March RN) Hx of Abuse/Neglect past 2yrs: No (05/25/2016 12:58:Melanie March RN) Feel Unsafe Going Home: No (05/25/2016 12:58:Melanie March RN) Addt'l Observ Indicating Abuse: No (05/25/2016 12:58:Melanie March RN) Reason Unable to Complete Screen: N/A, Screen Completed (05/25/2016 12:58:Melanie March RN) Considered Personal Harm/Suicide: No (05/25/2016 12:58:Melanie March RN) Problem with Appetite >5 Days: No (05/25/2016 12:58:Melanie March RN) Chew/Swallow Difficulties: No (05/25/2016 12:58:Melanie March RN) Inappropriate Wt Gain/Loss: No (05/25/2016 12:58:Melanie March RN) Presence Skin Breakdown/Ulcer: No (05/25/2016 12:58:Melanie March RN) Special Diet: No (05/25/2016 12:58:Melanie March RN) Pt Requests Screw Remover Visit: No (05/25/2016 12:58:Melanie March RN) Hx of Any of the Following?: N/A (05/25/2016 12:58:Melanie March RN) New Diagnosis of: N/A (05/25/2016 12:58:Melanie March RN) Requires Assist w/Ambulation: No (05/25/2016 12:58:Melanie March RN) Uses Assist Device to Ambulate: No (05/25/2016 12:58:Melanie March RN) Pt Requires Help w/ADL's: No (05/25/2016 12:58:Melanie March RN)
--- NOTE | 2016-05-26 04:47 | L&D General Admission ---
General Admit Datetime Report Generated by CPN: 05/26/2016 04:45 Para: 1 (05/24/2016 05:11:Lelo English RN) Baby, Number in Womb: 1 (05/24/2016 05:11:Lelo English RN) Height (in): 64 (05/25/2016 22:45:QS system process) Height (in): 64 (05/25/2016 12:37:QS system process) Height (in): 64 (05/25/2016 12:12:QS system process) Height (in): 64 (05/24/2016 05:02:QS system process) Medication Allergies: Penicillins (05/25/2016); amoxicillin (05/25/2016) (05/25/2016 12:12:QS system process) Hemoglobin: 12.7 (05/25/2016 12:56:QS system process) Hematocrit: 40.0 (05/25/2016 12:56:QS system process) MCV: 88 (05/25/2016 12:56:QS system process)
--- NOTE | 2016-05-26 04:47 | Antepartum Discharge Summary ---
Antepartum DC Datetime Report Generated by CPN: 05/26/2016 04:45 Diet: Regular (05/24/2016 05:11:Lelo English RN) Activity: Normal Activity (05/24/2016 05:11:Lelo English RN) Instructions Given To: Patient and significant other (05/24/2016 05:11:Lelo English RN) Instructions Understood: Patient Verbalized Understanding; Support Person Verbalized Understanding (05/24/2016 05:11:Lelo English RN) Referrals: None (05/24/2016 05:11:Lelo English RN) Educational Materials- Other: Dehydration (05/24/2016 05:11:Lelo English RN) Discharged AMA: No (05/24/2016 05:11:Lelo English RN) Discharge Date/Time: 05/24/2016 05:14 (05/24/2016 05:11:Lelo English RN) Discharged To: Home (05/24/2016 05:11:Lelo English RN) Discharge Provider Name: Dr. Bernabe (05/24/2016 05:11:Lelo English RN) Accompanied By: Significant other (05/24/2016 05:11:Lelo English RN) Discharge Method: Ambulatory (05/24/2016 05:11:Lelo English RN) Condition: Stable (05/24/2016 05:11:Lelo English RN) Follow Up With: [facility] (05/24/2016 05:11:Lelo English RN) Follow Up On: As Scheduled (05/24/2016 05:11:Lelo English RN) Follow Up Phone Number: [facility] - (05/24/2016 05:11:Lelo English RN) Comments: Discussed dehydration and signs and symptoms with patient and significant other. Both, patient and significant other, verbalized understanding. Patient discharged home for false labor via ambulation in stable condition. (05/24/2016 05:11:Lelo English RN) Contractions: Contractions or cramps become more frequent than 8 in one hour or 4 in 20 minutes; Regular painful contractions every 5 minutes or less for one hour. Time your contractions from the beginning of one to the beginning of the next (05/24/2016 05:11:Lelo English RN) Pressure: Pressure in your vagina or lower abdomen that may feel like the baby is pushing down (05/24/2016 05:11:Lelo English RN) Period Like Cramps: Period-like cramps or low dull backache that may come and go (05/24/2016 05:11:Lelo English RN) Cramps/Diarrhea: Abdominal cramps that may be accompanied by diarrhea (05/24/2016 05:11:Lelo English RN) Gush of Fluid/Blood: Gush of fluid or blood from your vagina (it is normal to have spotting after vaginal exam or intercourse) (05/24/2016 05:11:Lelo English RN) Vaginal Discharge: Change in the type or amount of vaginal discharge (05/24/2016 05:11:Lelo English RN) Decreased Movement: Your baby is not moving as much as usual- 4 movements in 1 hour after drinking and resting on side (05/24/2016 05:11:Lelo English RN) Temperature: Temperature greater than 100.0(F) orally (05/24/2016 05:11:Lelo English RN) Hypertension Signs/Symptoms: Severe headache which is not relieved 30 minutes after taking Tylenol(Acetaminophen); Blurry vision or spots before your eyes; Severe heartburn or pain on the upper right side of your abdomen that is not relieved by an antacid; Increased swelling in your face, hands or feet (05/24/2016 05:11:Lelo English RN) Urinary Output: Decreased urinary output or dark colored urine (05/24/2016 05:11:Lelo English RN)
--- NOTE | 2016-05-26 04:47 | L&D Flow Sheet ---
LD Flowsheet Datetime Report Generated by CPN: 05/26/2016 04:45 Datetime: 05/25/2016 22:19 NBP Sys/Shayla/Mean (mmHg): 119 (QS system process) : 56 (QS system process) : 79 (QS system process) Pulse: 90 (QS system process) Respirations: 16 (Melanie Vitrano, RN) Datetime: 05/25/2016 22:05 Stage of : Recovery (Melanie Vitrano, RN) Pain Scale: 0 (Melanie Vitrano, RN) Pain Presence: None/Denies (Melanie Vitrano, RN) Pain Type: N/A (Melanie Vitrano, RN) Datetime: 05/25/2016 21:44 NBP Sys/Shayla/Mean (mmHg): 121 (QS system process) : 58 (QS system process) : 83 (QS system process) Pulse: 90 (QS system process) Respirations: 16 (Melanie Vitrano, RN) Datetime: 05/25/2016 21:35 Stage of : Recovery (Melanie Vitrano, RN) Pain Scale: 0 (Melanie Vitrano, RN) Pain Presence: None/Denies (Melanie Vitrano, RN) Pain Type: N/A (Melanie Vitrano, RN) Datetime: 05/25/2016 21:20 Stage of : Recovery (Melanie Vitrano, RN) Pain Scale: 0 (Melanie Vitrano, RN) Pain Presence: None/Denies (Melanie Vitrano, RN) Pain Type: N/A (Melanie Vitrano, RN) Datetime: 05/25/2016 21:05 Stage of : Recovery (Melanie Vitrano, RN) Pain Scale: 0 (Melanie Vitrano, RN) Pain Presence: None/Denies (Melanie Vitrano, RN) Pain Type: N/A (Melanie Vitrano, RN) Datetime: 05/25/2016 20:51 NBP Sys/Shayla/Mean (mmHg): 128 (QS system process) : 65 (QS system process) : 89 (QS system process) Pulse: 111 (QS system process) Respirations: 16 (Melanie Vitrano, RN) Datetime: 05/25/2016 20:50 Stage of : Recovery (Melanie Vitrano, RN) Pain Scale: 0 (Melanie Vitrano, RN) Pain Presence: None/Denies (Melanie Vitrano, RN) Pain Type: N/A (Melanie Vitrano, RN) Datetime: 05/25/2016 20:40 Stage of : Recovery (Melanie Vitrano, RN) Datetime: 05/25/2016 20:35 Stage of : Recovery (Melanie Vitrano, RN) NBP Sys/Shayla/Mean (mmHg): 121 (QS system process) : 65 (QS system process) : 86 (QS system process) Pulse: 101 (QS system process) Respirations: 16 (Melanie Vitrano, RN) Pain Scale: 0 (Melanie Vitrano, RN) Pain Presence: None/Denies (Melanie Vitrano, RN) Pain Type: N/A (Melanie Vitrano, RN) Datetime: 05/25/2016 20:32 Stage of : Recovery (Melanie Vitrano, RN) Datetime: 05/25/2016 20:27 Monitor Mode: External; Palpation (Melanie Vitrano, RN) Frequency (min): 1.5-3 (Melanie Vitrano, RN) Quality: Moderate to Strong (Melanie Vitrano, RN) Duration (sec): 60-80 (Melanie Vitrano, RN) Duration Criteria: Less than Two 120 Second Contractions (Melanie Vitrano, RN) Pattern: Normal: <= 5 Contractions in 10 Minutes (Melanie Vitrano, RN) Resting Tone (Palpate): Relaxed (Melanie Vitrano, RN) Monitor Mode: External US (Melanie Vitrano, RN) FHR Baseline Rate : 130 (Melanie Vitrano, RN) Variability: Moderate 6-25 bpm (Melanie Vitrano, RN) Accelerations: 15X15 (Melanie Vitrano, RN) Decelerations: Prolonged (Melanie Vitrano, RN) Stage 2 Comments: viable baby boy, see delivery summary (Melanie Vitrano, RN) Datetime: 05/25/2016 20:25 Pushing Progress: with Pushing (Melanie Vitrano, RN) Datetime: 05/25/2016 20:24 Pushing Progress: Presenting Part Visible (Melanie Vitrano, RN) Datetime: 05/25/2016 20:15 Monitor Mode: External; Palpation (Melanie Vitrano, RN) Frequency (min): 1-2 (Melanie Vitrano, RN) Quality: Moderate to Strong (Melanie Vitrano, RN) Duration (sec): 50-70 (Melanie Vitrano, RN) Duration Criteria: Less than Two 120 Second Contractions (Melanie Vitrano, RN) Pattern: Normal: <= 5 Contractions in 10 Minutes (Melanie Vitrano, RN) Resting Tone (Palpate): Relaxed (Melanie Vitrano, RN) Monitor Mode: External US (Melanie Vitrano, RN) FHR Baseline Rate : 130 (Melanie Vitrano, RN) Variability: Moderate 6-25 bpm (Melanie Vitrano, RN) Accelerations: 15X15 (Melanie Vitrano, RN) Decelerations: Variable (Melanie Vitrano, RN) Datetime: 05/25/2016 20:13 Pushing Progress: Descent with Pushing (Melanie Vitrano, RN) Datetime: 05/25/2016 20:04 Pushing: Coached on Pushing; Urge to Push (Melanie Vitrano, RN) Stage 2 Comments: RN and provider remain at pt bedside while pt pushes continously adjusting US and assessing FHTs (Melanie Vitrano, RN) Datetime: 05/25/2016 20:02 I/O Interventions: Macias Discontinued (Melanie Vitrano, RN) Datetime: 05/25/2016 20:00 Monitor Mode: External; Palpation (Melanie Vitrano, RN) Frequency (min): 1-2 (Melanie Vitrano, RN) Quality: Moderate to Strong (Melanie Vitrano, RN) Duration (sec): 50-70 (Melanie Vitrano, RN) Duration Criteria: Less than Two 120 Second Contractions (Melanie March RN) Pattern: Normal: <= 5 Contractions in 10 Minutes (Melanie March RN) Resting Tone (Palpate): Relaxed (Melanie March RN) Monitor Mode: External US (Melanie March RN) FHR Baseline Rate : 130 (Melanie March, RN) Variability: Minimal - Undetectable to <=5 bpm (Melanie March, RN) Accelerations: 15X15 (Melanie March RN) Decelerations: Prolonged (Melanie March, RN) Dilatation (cm): 10.0 (Melanie March, RN) Effacement (%): 100 (Melanie March RN) Station: 2 (Melanie March RN) Exam by: Best March RN (Melanie March RN) Provider Reviewed Strip: Yes (Melanie March RN) Communication: RN at Bedside; RN Reviewed Strip; Provider at Bedside (Melanie March RN) Datetime: 05/25/2016 19:54 Patient Position/Activity: Left Lateral; Peanut Ball (Melanie March RN) Datetime: 05/25/2016 19:53 Patient Care Comments: States nausea is relieved (Melanie Vitrano, RN) Datetime: 05/25/2016 19:45 Monitor Mode: External; Palpation (Melanie Vitrano, RN) Frequency (min): 1-3 (Melanie Vitrano, RN) Quality: Moderate to Strong (Melanie Vitrano, RN) Duration (sec): 50-80 (Melanie Vitrano, RN) Duration Criteria: Less than Two 120 Second Contractions (Melanie Vitrano, RN) Pattern: Normal: <= 5 Contractions in 10 Minutes (Melanie Vitrano, RN) Resting Tone (Palpate): Relaxed (Melanie Vitrano, RN) Monitor Mode: External US (Melanie Vitrano, RN) FHR Baseline Rate : 140 (Melanie Vitrano, RN) Variability: Minimal - Undetectable to <=5 bpm (Melanie Vitrano, RN) Accelerations: 15X15 (Melanie Vitrano, RN) Decelerations: Early (Melanie Vitrano, RN) Datetime: 05/25/2016 19:43 Medication Comments: Zofran 4 mg IV (Melanie Vitrano, RN) Datetime: 05/25/2016 19:39 Communication Comments: Orders from Dr. Barba for Zofran 4 gm IV x1 now (Melanie Vitrano, RN) Datetime: 05/25/2016 19:38 I/O Interventions: Ice Chips Given; Clear Liquids Given (Melanie Vitrano, RN) Patient Care Comments: Juice and ice given (Melanie Vitrano, RN) Datetime: 05/25/2016 19:36 Temperature (F): 98.6 (Melanie Vitrano, RN) Temperature (C): 37.0 (QS system process) Temperature Route: Axillary (Melanie Vitrano, RN) LaborFlag: Labor (QS system process) Datetime: 05/25/2016 19:35 Patient Care Comments: Pt states she is nauseated, requesting medication (Melanie Vitrano, RN) Datetime: 05/25/2016 19:34 Patient Position/Activity: Left Tilt; Semi-Fowlers (Melanie Vitrano, RN) Datetime: 05/25/2016 19:30 Monitor Mode: External (Melanie Vitrano, RN) Frequency (min): 1-3 (Melanie Vitrano, RN) Quality: Moderate to Strong (Melanie Vitrano, RN) Duration (sec): 40-70 (Melanie Vitrano, RN) Duration Criteria: Less than Two 120 Second Contractions (Melanie Vitrano, RN) Pattern: Normal: <= 5 Contractions in 10 Minutes (Melanie Vitrano, RN) Resting Tone (Palpate): Relaxed (Melanie Vitrano, RN) Monitor Mode: External US (Melanie Vitrano, RN) FHR Baseline Rate : 140 (Melanie Vitrano, RN) Variability: Moderate 6-25 bpm (Melanie Vitrano, RN) Accelerations: 15X15 (Melanie Vitrano, RN) Decelerations: Early (Melanie Vitrano, RN) Datetime: 05/25/2016 19:29 Communication Comments: Dr. Barba on unit, notified of SVE; no new orders, continue current POC (Melanie Vitrano, RN) Datetime: 05/25/2016 19:23 NBP Sys/Shayla/Mean (mmHg): 124 (QS system process) : 72 (QS system process) : 92 (QS system process) Pulse: 108 (QS system process) Respirations: 16 (Melanie Vitrano, RN) LaborFlag: Labor (QS system process) Datetime: 05/25/2016 19:15 Monitor Mode: External (Melanie Vitrano, RN) Frequency (min): 1-2 (Melanie Vitrano, RN) Quality: Moderate to Strong (Melanie Vitrano, RN) Duration (sec): 50-60 (Melanie Vitrano, RN) Duration Criteria: Less than Two 120 Second Contractions (Melanie Vitrano, RN) Pattern: Normal: <= 5 Contractions in 10 Minutes (Melanie Vitrano, RN) Resting Tone (Palpate): Relaxed (Melanie Vitrano, RN) Monitor Mode: External US (Melanie Vitrano, RN) FHR Baseline Rate : 140 (Melanie Vitrano, RN) Variability: Minimal - Undetectable to <=5 bpm (Melanie Vitrano, RN) Accelerations: 10X10 (Melanie Vitrano, RN) Decelerations: None (Melanie Vitrano, RN) Datetime: 05/25/2016 19:00 Monitor Mode: External; Palpation (Melanie Vitrano, RN) Frequency (min): 1-3 (Melanie Vitrano, RN) Quality: Moderate to Strong (Melanie Vitrano, RN) Duration (sec): 50-70 (Melanie Vitrano, RN) Duration Criteria: Less than Two 120 Second Contractions (Melanie Vitrano, RN) Pattern: Normal: <= 5 Contractions in 10 Minutes (Melanie Vitrano, RN) Resting Tone (Palpate): Relaxed (Melanie Vitrano, RN) Monitor Mode: External US (Melanie Vitrano, RN) FHR Baseline Rate : 120 (Melanie Vitrano, RN) Variability: Moderate 6-25 bpm (Melanie Vitrano, RN) Accelerations: 15X15 (Melanie Vitrano, RN) Decelerations: Prolonged (Melanie Vitrano, RN) Datetime: 05/25/2016 18:58 Patient Care Comments: Warm blankets given (Melanie Vitrano, RN) Datetime: 05/25/2016 18:56 Patient Position/Activity: Left Tilt; Tailors (Melanie Vitrano, RN) Datetime: 05/25/2016 18:53 NBP Sys/Shayla/Mean (mmHg): 103 (QS system process) : 73 (QS system process) : 84 (QS system process) Pulse: 110 (QS system process) Respirations: 16 (Melanie Vitrano, RN) LaborFlag: Labor (QS system process) Datetime: 05/25/2016 18:50 Dilatation (cm): 8.0 (Melanie Vitrano, RN) Effacement (%): 100 (Melanie Anca, RN) Station: 0 (Melanie Anca, RN) Exam by: Best March RN (Melanie Vitrano, RN) Patient Position/Activity: Left Tilt; Semi-Fowlers (Melanie Vitrano, RN) Datetime: 05/25/2016 18:45 Monitor Mode: External (Melanie Vitrano, RN) Frequency (min): 1-2 (Melanie Vitrano, RN) Quality: Moderate to Strong (Melanie Vitrano, RN) Duration (sec): 50-60 (Melanie Vitrano, RN) Duration Criteria: Less than Two 120 Second Contractions (Melanie Vitrano, RN) Pattern: Normal: <= 5 Contractions in 10 Minutes (Melanie Vitrano, RN) Resting Tone (Palpate): Relaxed (Melanie Vitrano, RN) Monitor Mode: External US (Melanie Vitrano, RN) FHR Baseline Rate : 125 (Melanie Vitrano, RN) Variability: Moderate 6-25 bpm (Melanie Vitrano, RN) Accelerations: 15X15 (Melanie Vitrano, RN) Decelerations: None (Melanie Vitrano, RN) Datetime: 05/25/2016 18:33 Provider Reviewed Strip: Yes (Melanie March RN) Communication: Provider at Bedside (Melanie March RN) Communication Comments: Dr. Barba at bedside, answering pt questions (Melanie March RN) Datetime: 05/25/2016 18:31 Monitor Interventions for UA: [place] Adjusted (Melanie March, TALIB) Monitor Interventions for FHR: Ultrasound Adjusted (Melanie March, TALIB) Patient Position/Activity: Right Lateral; Peanut Ball (Melanie March, RN) Patient Care Comments: Pt comfortable, denies needs (Melanie March, RN) Datetime: 05/25/2016 18:30 Monitor Mode: External; Palpation (Melanie March, RN) Frequency (min): 2-3 (Melanie March, RN) Quality: Moderate to Strong (Melanie March, RN) Duration (sec): 40-60 (Melanieharman March, RN) Duration Criteria: Less than Two 120 Second Contractions (Melanie March, RN) Pattern: Normal: <= 5 Contractions in 10 Minutes (Melanie Vitrano, RN) Resting Tone (Palpate): Relaxed (Melanie Vitrano, RN) Monitor Mode: External US (Melanie Vitrano, RN) FHR Baseline Rate : 140 (Melanie Vitrano, RN) Variability: Moderate 6-25 bpm (Melanie Vitrano, RN) Accelerations: 15X15 (Melanie Vitrano, RN) Decelerations: Late; Variable (Melanie Vitrano, RN) Datetime: 05/25/2016 18:27 Temperature (F): 99.0 (Melanie Vitrano, RN) Temperature (C): 37.2 (QS system process) Temperature Route: Oral (Melanie Vitrano, RN) LaborFlag: Labor (QS system process) Datetime: 05/25/2016 18:22 NBP Sys/Shayla/Mean (mmHg): 107 (QS system process) : 59 (QS system process) : 77 (QS system process) Pulse: 90 (QS system process) Respirations: 16 (Melanie Vitrano, RN) LaborFlag: Labor (QS system process) Datetime: 05/25/2016 18:15 Monitor Mode: External (Melanie Vitrano, RN) Frequency (min): 2-3 (Melanie Vitrano, RN) Quality: Moderate to Strong (Melanie Vitrano, RN) Duration (sec): 50-60 (Melanie Vitrano, RN) Duration Criteria: Less than Two 120 Second Contractions (Melanie Vitrano, RN) Pattern: Normal: <= 5 Contractions in 10 Minutes (Melanie Vitrano, RN) Resting Tone (Palpate): Relaxed (Melanie Vitrano, RN) Monitor Mode: External US (Melanie Vitrano, RN) FHR Baseline Rate : 130 (Melanie Vitrano, RN) Variability: Moderate 6-25 bpm (Melanie Vitrano, RN) Accelerations: 15X15 (Melanie Vitrano, RN) Decelerations: Early (Melanie Vitrano, RN) Datetime: 05/25/2016 18:00 Monitor Mode: External; Palpation (Melanie Vitrano, RN) Frequency (min): 1-3 (Melanie Vitrano, RN) Quality: Moderate to Strong (Melanie Vitrano, RN) Duration (sec): 40-60 (Melanie Vitrano, RN) Duration Criteria: Less than Two 120 Second Contractions (Melanie Vitrano, RN) Pattern: Normal: <= 5 Contractions in 10 Minutes (Melanie Vitrano, RN) Resting Tone (Palpate): Relaxed (Melanie Vitrano, RN) Monitor Mode: External US (Melanie Vitrano, RN) FHR Baseline Rate : 140 (Melanie Vitrano, RN) Variability: Moderate 6-25 bpm (Melanie Vitrano, RN) Accelerations: 15X15 (Melanie Vitrano, RN) Decelerations: None (Melanie Vitrano, RN) Datetime: 05/25/2016 17:52 NBP Sys/Shayla/Mean (mmHg): 117 (QS system process) : 67 (QS system process) : 86 (QS system process) Pulse: 95 (QS system process) Respirations: 16 (Melanie Vitrano, RN) LaborFlag: Labor (QS system process) Datetime: 05/25/2016 17:45 Monitor Mode: External (Melanie Vitrano, RN) Frequency (min): 1-3 (Melanie Vitrano, RN) Quality: Moderate to Strong (Melanie Vitrano, RN) Duration (sec): 40-70 (Melanie Vitrano, RN) Duration Criteria: Less than Two 120 Second Contractions (Melanie Vitrano, RN) Pattern: Normal: <= 5 Contractions in 10 Minutes (Melanie Vitrano, RN) Resting Tone (Palpate): Relaxed (Melanie Vitrano, RN) Monitor Mode: External US (Melanie Vitrano, RN) FHR Baseline Rate : 140 (Melanie Vitrano, RN) Variability: Minimal - Undetectable to <=5 bpm (Melanie Vitrano, RN) Accelerations: 10X10 (Melanie Vitrano, RN) Decelerations: None (Melanie Vitrano, RN) Datetime: 05/25/2016 17:38 Patient Position/Activity: Left Lateral; Peanut Ball (Melanie Vitrano, RN) Datetime: 05/25/2016 17:30 Monitor Mode: External (Melanie Vitrano, RN) Frequency (min): 1-3 (Melanie Vitrano, RN) Quality: Moderate to Strong (Melanie Vitrano, RN) Duration (sec): 40-60 (Melanie Vitrano, RN) Duration Criteria: Less than Two 120 Second Contractions (Melanie Vitrano, RN) Pattern: Normal: <= 5 Contractions in 10 Minutes (Melanie Vitrano, RN) Resting Tone (Palpate): Relaxed (Melanie Vitrano, RN) Monitor Mode: External US (Melanie Vitrano, RN) FHR Baseline Rate : 135 (Melanie Vitrano, RN) Variability: Minimal - Undetectable to <=5 bpm (Melanie Vitrano, RN) Accelerations: 15X15 (Melanie Vitrano, RN) Decelerations: None (Melanie Vitrano, RN) Datetime: 05/25/2016 17:15 Monitor Mode: External; Palpation (EDGARDO Bhatia) Frequency (min): 2-2.5 (EDGARDO Bhatai) Quality: Moderate to Strong (EDGARDO Bhatia) Duration (sec): 60-90 (Ada Steve RNC) Duration Criteria: Less than Two 120 Second Contractions (Ada Steve RNC) Pattern: Normal: <= 5 Contractions in 10 Minutes (Ada Steve RNC) Resting Tone (Palpate): Relaxed (Ada Steve RNC) Monitor Mode: External US (EDGARDO Bhatia) FHR Baseline Rate : 145 (Ada Steve RNC) Variability: Moderate 6-25 bpm (Ada Power, RNC) Accelerations: None (Ada Power, RNC) Decelerations: None (Ada Power, RNC) Datetime: 05/25/2016 17:00 Monitor Mode: External; Palpation (Ada Power, RNC) Frequency (min): 2-2.5 (Ada Power, RNC) Quality: Moderate to Strong (Ada Power, RNC) Duration (sec): 60-90 (Ada Power, RNC) Duration Criteria: Less than Two 120 Second Contractions (Ada Power, RNC) Pattern: Normal: <= 5 Contractions in 10 Minutes (Ada Power, RNC) Resting Tone (Palpate): Relaxed (Ada Power, RNC) Monitor Mode: External US (Ada Power, RNC) FHR Baseline Rate : 145 (Ada Power, RNC) Variability: Minimal - Undetectable to <=5 bpm (Ada Power, RNC) Accelerations: 15X15 (Ada Power, RNC) Decelerations: Variable (Ada Power, RNC) Datetime: 05/25/2016 16:53 NBP Sys/Shayla/Mean (mmHg): 118 (QS system process) : 68 (QS system process) : 87 (QS system process) Pulse: 105 (QS system process) Respirations: 16 (Melanie March RN) LaborFlag: Labor (QS system process) Datetime: 05/25/2016 16:48 Patient Position/Activity: Left Tilt; Low Fowlers (Melanie March RN) Patient Care Comments: Pt resting, denies needs (Melanie March RN) Communication Comments: Ang Powell CNM on unit, reviewed strip, updated on SVE. No new orders, continue current POC. (Melanie March RN) Datetime: 05/25/2016 16:47 Dilatation (cm): 6.5 (Melanie March RN) Effacement (%): 100 (Melanie March RN) Station: 0 (Melanie March RN) Exam by: Best March RN (Melanie March RN) Datetime: 05/25/2016 16:45 Monitor Mode: External (Melanie Vitrano, RN) Frequency (min): 1-3 (Melanie Vitrano, RN) Quality: Moderate to Strong (Melanie Vitrano, RN) Duration (sec): 50-60 (Melanie Vitrano, RN) Duration Criteria: Less than Two 120 Second Contractions (Melanie Vitrano, RN) Pattern: Normal: <= 5 Contractions in 10 Minutes (Melanie Vitrano, RN) Resting Tone (Palpate): Relaxed (Melanie Vitrano, RN) Monitor Mode: External US (Melanie Vitrano, RN) FHR Baseline Rate : 130 (Melanie Vitrano, RN) Variability: Moderate 6-25 bpm (Emlanie Vitrano, RN) Accelerations: 15X15 (Melanie Vitrano, RN) Decelerations: Variable (Melanie Vitrano, RN)
[2016-05-26] MEDS: IBUPROFEN 800 MG TABLET PO SCH ×3 (06:13→22:14)
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
--- NOTE | 2016-05-26 06:27 | L&D Current Admission ---
Current Admit Datetime Report Generated by CPN: 05/26/2016 06:00 ADMISSION INFORMATION Current Admit Date/Time: 05/25/2016 12:17 (05/25/2016 12:58:Melanie March RN) Reason for Admission: Onset of Labor; Rupture of Membranes (05/25/2016 12:58:Melanie March RN) Chief Complaint: Contractions (05/25/2016 12:58:Melanie March RN) EGA per Dates: 40.5 (05/25/2016 12:58:QS system process) EGA per US: 40.5 (05/25/2016 12:58:QS system process) Method of Arrival: Wheelchair (05/25/2016 12:58:Melanie March RN) Admitted From: Home (05/25/2016 12:58:Melanie March RN) Reason for Induction: Not Applicable (05/25/2016 12:58:Melanie March RN) Records Available: Yes (05/25/2016 12:58:Melanie March RN) General Admission Information: Reviewed; Confirmed (05/25/2016 12:58:Melanie March RN) General Admission Reviewed By: Best March RN (05/25/2016 12:58:Melanie March RN) BELONGINGS/ADVANCED DIRECTIVES Other Belongings: See belongings consent (05/25/2016 12:58:Melanie March RN) Disposition of Belongings: Kept with Patient (05/25/2016 12:58:Melanie March RN) Advance Direct for Healthcare: No, and Wants No Information (05/25/2016 12:58:eMlanie March RN) Durable Power of Supervisor Edging: No (05/25/2016 12:58:Melanie March RN) Living Will: No (05/25/2016 12:58:Melanie aMrch RN) Organ Donor: Yes (05/25/2016 12:58:Melanie March RN) Pt Rights Information Given: Yes (05/25/2016 12:58:Melanie March RN) Pt Understands Pt Rights: Yes (05/25/2016 12:58:Melanie March RN) LEARNING ASSESSMENT Knowledge Level: Understands L_D Process; Understands Diagnosis (05/25/2016 12:58:Melanie March RN) Barriers to Learning: Pain (05/25/2016 12:58:Melanie March RN) Learning Readiness: Motivated (05/25/2016 12:58:Melanie March RN) Learns Best By: 1 to 1 Instruction (05/25/2016 12:58:Melanie March RN) Learning Needs: Labor and Delivery Process; Pain Management; Symptoms to Report; Treatment Plan (05/25/2016 12:58:Melanie March RN) DOMESTIC VIOLANCE SCREENING Dom Viol Threatened/Hurt: No (05/25/2016 12:58:Melanie March RN) Hx of Abuse/Neglect past 2yrs: No (05/25/2016 12:58:Melanie March RN) Feel Unsafe Going Home: No (05/25/2016 12:58:Melanie March RN) Addt'l Observ Indicating Abuse: No (05/25/2016 12:58:Melanie March RN) Reason Unable to Complete Screen: N/A, Screen Completed (05/25/2016 12:58:Melanie March RN) Considered Personal Harm/Suicide: No (05/25/2016 12:58:Melanie March RN) NUTRITIONAL/FUNCTIONAL SCREENING Problem with Appetite >5 Days: No (05/25/2016 12:58:Melanie March RN) Chew/Swallow Difficulties: No (05/25/2016 12:58:Melanie March RN) Inappropriate Wt Gain/Loss: No (05/25/2016 12:58:Melanie March RN) Presence Skin Breakdown/Ulcer: No (05/25/2016 12:58:Melanie March RN) Special Diet: No (05/25/2016 12:58:Melanie March RN) Pt Requests Fingernail Technician Visit: No (05/25/2016 12:58:Melanie March RN) Hx of Any of the Following?: N/A (05/25/2016 12:58:Melanie March RN) New Diagnosis of: N/A (05/25/2016 12:58:Melanie March RN) Requires Assist w/Ambulation: No (05/25/2016 12:58:Melanie March RN) Uses Assist Device to Ambulate: No (05/25/2016 12:58:Melanie March RN) Pt Requires Help w/ADL's: No (05/25/2016 12:58:Melanie March RN)
--- NOTE | 2016-05-26 07:01 | L&D Flow Sheet ---
LD Flowsheet Datetime Report Generated by CPN: 05/26/2016 07:00 Datetime: 05/25/2016 22:19 NBP Sys/Shayla/Mean (mmHg): 119 (QS system process) : 56 (QS system process) : 79 (QS system process) Pulse: 90 (QS system process) Respirations: 16 (Melanie Vitrano, RN) Datetime: 05/25/2016 22:05 Stage of : Recovery (Melanie Vitrano, RN) Pain Scale: 0 (Melanie Vitrano, RN) Pain Presence: None/Denies (Melanie Vitrano, RN) Pain Type: N/A (Melanie Vitrano, RN) Datetime: 05/25/2016 21:44 NBP Sys/Shayla/Mean (mmHg): 121 (QS system process) : 58 (QS system process) : 83 (QS system process) Pulse: 90 (QS system process) Respirations: 16 (Melanie Vitrano, RN) Datetime: 05/25/2016 21:35 Stage of : Recovery (Melanie Vitrano, RN) Pain Scale: 0 (Melanie Vitrano, RN) Pain Presence: None/Denies (Melanie Vitrano, RN) Pain Type: N/A (Melanie Vitrano, RN) Datetime: 05/25/2016 21:20 Stage of : Recovery (Melanie Vitrano, RN) Pain Scale: 0 (Melanie Vitrano, RN) Pain Presence: None/Denies (Melanie Vitrano, RN) Pain Type: N/A (Melanie Vitrano, RN) Datetime: 05/25/2016 21:05 Stage of : Recovery (Melanie Vitrano, RN) Pain Scale: 0 (Melanie Vitrano, RN) Pain Presence: None/Denies (Melanie Vitrano, RN) Pain Type: N/A (Melanie Vitrano, RN) Datetime: 05/25/2016 20:51 NBP Sys/Shayla/Mean (mmHg): 128 (QS system process) : 65 (QS system process) : 89 (QS system process) Pulse: 111 (QS system process) Respirations: 16 (Melanie Vitrano, RN) Datetime: 05/25/2016 20:50 Stage of : Recovery (Melanie Vitrano, RN) Pain Scale: 0 (Melanie Vitrano, RN) Pain Presence: None/Denies (Melanie Vitrano, RN) Pain Type: N/A (Melanie Vitrano, RN) Datetime: 05/25/2016 20:40 Stage of : Recovery (Melanie Vitrano, RN) Datetime: 05/25/2016 20:35 Stage of : Recovery (Melanie Vitrano, RN) NBP Sys/Shayla/Mean (mmHg): 121 (QS system process) : 65 (QS system process) : 86 (QS system process) Pulse: 101 (QS system process) Respirations: 16 (Melanie Vitrano, RN) Pain Scale: 0 (Mleanie Vitrano, RN) Pain Presence: None/Denies (Melanie Vitrano, RN) Pain Type: N/A (Melanie Vitrano, RN) Datetime: 05/25/2016 20:32 Stage of : Recovery (Melanie Vitrano, RN) Datetime: 05/25/2016 20:27 Monitor Mode: External; Palpation (Melanie Vitrano, RN) Frequency (min): 1.5-3 (Melanie Vitrano, RN) Quality: Moderate to Strong (Melanie Vitrano, RN) Duration (sec): 60-80 (Melanie Vitrano, RN) Duration Criteria: Less than Two 120 Second Contractions (Melanie Vitrano, RN) Pattern: Normal: <= 5 Contractions in 10 Minutes (Melanie Vitrano, RN) Resting Tone (Palpate): Relaxed (Melanie Vitrano, RN) Monitor Mode: External US (Melanie Vitrano, RN) FHR Baseline Rate : 130 (Melanie Vitrano, RN) Variability: Moderate 6-25 bpm (Melanie Vitrano, RN) Accelerations: 15X15 (Melanie Vitrano, RN) Decelerations: Prolonged (Melanie Vitrano, RN) Stage 2 Comments: viable baby boy, see delivery summary (Melanie Vitrano, RN) Datetime: 05/25/2016 20:25 Pushing Progress: with Pushing (Melanie Vitrano, RN) Datetime: 05/25/2016 20:24 Pushing Progress: Presenting Part Visible (Melanie Vitrano, RN) Datetime: 05/25/2016 20:15 Monitor Mode: External; Palpation (Melanie Vitrano, RN) Frequency (min): 1-2 (Melanie Vitrano, RN) Quality: Moderate to Strong (Melanie Vitrano, RN) Duration (sec): 50-70 (Melanie Vitrano, RN) Duration Criteria: Less than Two 120 Second Contractions (Melanie Vitrano, RN) Pattern: Normal: <= 5 Contractions in 10 Minutes (Melanie Vitrano, RN) Resting Tone (Palpate): Relaxed (Melanie Vitrano, RN) Monitor Mode: External US (Melanie Vitrano, RN) FHR Baseline Rate : 130 (Melanie Vitrano, RN) Variability: Moderate 6-25 bpm (Melanie Vitrano, RN) Accelerations: 15X15 (Melanie Vitrano, RN) Decelerations: Variable (Melanie Vitrano, RN) Datetime: 05/25/2016 20:13 Pushing Progress: Descent with Pushing (Melanie Vitrano, RN) Datetime: 05/25/2016 20:04 Pushing: Coached on Pushing; Urge to Push (Melanie Vitrano, RN) Stage 2 Comments: RN and provider remain at pt bedside while pt pushes continously adjusting US and assessing FHTs (Melanie Vitrano, RN) Datetime: 05/25/2016 20:02 I/O Interventions: Macias Discontinued (Melanie Vitrano, RN) Datetime: 05/25/2016 20:00 Monitor Mode: External; Palpation (Emlanie Vitrano, RN) Frequency (min): 1-2 (Melanie Vitrano, RN) Quality: Moderate to Strong (Melanie Vitrano, RN) Duration (sec): 50-70 (Melanie Vitrano, RN) Duration Criteria: Less than Two 120 Second Contractions (Melanie March RN) Pattern: Normal: <= 5 Contractions in 10 Minutes (Melanie March RN) Resting Tone (Palpate): Relaxed (Melanie March RN) Monitor Mode: External US (Melanie March RN) FHR Baseline Rate : 130 (Melanie March, RN) Variability: Minimal - Undetectable to <=5 bpm (Melanie March, RN) Accelerations: 15X15 (Melanie March RN) Decelerations: Prolonged (Melanie March, RN) Dilatation (cm): 10.0 (Melanie March, RN) Effacement (%): 100 (Melanie March RN) Station: 2 (Melanie March RN) Exam by: Best March RN (Melanie March RN) Provider Reviewed Strip: Yes (Melanie March RN) Communication: RN at Bedside; RN Reviewed Strip; Provider at Bedside (Melanie March RN) Datetime: 05/25/2016 19:54 Patient Position/Activity: Left Lateral; Peanut Ball (Melanie March RN) Datetime: 05/25/2016 19:53 Patient Care Comments: States nausea is relieved (Melanie Vitrano, RN) Datetime: 05/25/2016 19:45 Monitor Mode: External; Palpation (Melanie Vitrano, RN) Frequency (min): 1-3 (Melanie Vitrano, RN) Quality: Moderate to Strong (Melanie Vitrano, RN) Duration (sec): 50-80 (Melanie Vitrano, RN) Duration Criteria: Less than Two 120 Second Contractions (Melanie Vitrano, RN) Pattern: Normal: <= 5 Contractions in 10 Minutes (Melanie Vitrano, RN) Resting Tone (Palpate): Relaxed (Melanie Vitrano, RN) Monitor Mode: External US (Melanie Vitrano, RN) FHR Baseline Rate : 140 (Melanie Vitrano, RN) Variability: Minimal - Undetectable to <=5 bpm (Melanie Vitrano, RN) Accelerations: 15X15 (Melanie Vitrano, RN) Decelerations: Early (Melanie Vitrano, RN) Datetime: 05/25/2016 19:43 Medication Comments: Zofran 4 mg IV (Melanie Vitrano, RN) Datetime: 05/25/2016 19:39 Communication Comments: Orders from Dr. Barba for Zofran 4 gm IV x1 now (Melanie Vitrano, RN) Datetime: 05/25/2016 19:38 I/O Interventions: Ice Chips Given; Clear Liquids Given (Melanie Vitrano, RN) Patient Care Comments: Juice and ice given (Melanie Vitrano, RN) Datetime: 05/25/2016 19:36 Temperature (F): 98.6 (Melanie Vitrano, RN) Temperature (C): 37.0 (QS system process) Temperature Route: Axillary (Melanie Vitrano, RN) LaborFlag: Labor (QS system process) Datetime: 05/25/2016 19:35 Patient Care Comments: Pt states she is nauseated, requesting medication (Melanie Vitrano, RN) Datetime: 05/25/2016 19:34 Patient Position/Activity: Left Tilt; Semi-Fowlers (Melanie Vitrano, RN) Datetime: 05/25/2016 19:30 Monitor Mode: External (Melanie Vitrano, RN) Frequency (min): 1-3 (Melanie Vitrano, RN) Quality: Moderate to Strong (Melanie Vitrano, RN) Duration (sec): 40-70 (Melanie Vitrano, RN) Duration Criteria: Less than Two 120 Second Contractions (Melanie Vitrano, RN) Pattern: Normal: <= 5 Contractions in 10 Minutes (Melanie Vitrano, RN) Resting Tone (Palpate): Relaxed (Melanie Vitrano, RN) Monitor Mode: External US (Melanie Vitrano, RN) FHR Baseline Rate : 140 (Melanie Vitrano, RN) Variability: Moderate 6-25 bpm (Melanie Vitrano, RN) Accelerations: 15X15 (Melanie Vitrano, RN) Decelerations: Early (Melanie Vitrano, RN) Datetime: 05/25/2016 19:29 Communication Comments: Dr. Barba on unit, notified of SVE; no new orders, continue current POC (Melanie Vitrano, RN) Datetime: 05/25/2016 19:23 NBP Sys/Shayla/Mean (mmHg): 124 (QS system process) : 72 (QS system process) : 92 (QS system process) Pulse: 108 (QS system process) Respirations: 16 (Melanie Vitrano, RN) LaborFlag: Labor (QS system process) Datetime: 05/25/2016 19:15 Monitor Mode: External (Melanie Vitrano, RN) Frequency (min): 1-2 (Melanie Vitrano, RN) Quality: Moderate to Strong (Melanie Vitrano, RN) Duration (sec): 50-60 (Melanie Vitrano, RN) Duration Criteria: Less than Two 120 Second Contractions (Melanie Vitrano, RN) Pattern: Normal: <= 5 Contractions in 10 Minutes (Melanie Vitrano, RN) Resting Tone (Palpate): Relaxed (Melanie Vitrano, RN) Monitor Mode: External US (Melanie Vitrano, RN) FHR Baseline Rate : 140 (Melanie Vitrano, RN) Variability: Minimal - Undetectable to <=5 bpm (Melanie Vitrano, RN) Accelerations: 10X10 (Melanie Vitrano, RN) Decelerations: None (Melanie Vitrano, RN) Datetime: 05/25/2016 19:00 Monitor Mode: External; Palpation (Melanie Vitrano, RN) Frequency (min): 1-3 (Melanie Vitrano, RN) Quality: Moderate to Strong (Melanie Vitrano, RN) Duration (sec): 50-70 (Melanie Vitrano, RN) Duration Criteria: Less than Two 120 Second Contractions (Melanie Vitrano, RN) Pattern: Normal: <= 5 Contractions in 10 Minutes (Melanie Vitrano, RN) Resting Tone (Palpate): Relaxed (Melanie Vitrano, RN) Monitor Mode: External US (Melanie Vitrano, RN) FHR Baseline Rate : 120 (Melanie Vitrano, RN) Variability: Moderate 6-25 bpm (Melanie Vitrano, RN) Accelerations: 15X15 (Melanie Vitrano, RN) Decelerations: Prolonged (Melanie Vitrano, RN)
[2016-05-26] MEDS: LEVOTHYROXINE SODIUM 0.1 MG TABLET PO SCH (07:13)
[2016-05-26 09:01] LABS: HEMATOCRIT 34.3 % (36.0-47.0); HEMOGLOBIN 11.3 g/dL (12.0-15.5); HGB HCT DIFFERENCE -0.4; MEAN CORPUSCULAR HEMOGLOBIN 28.8 pg (27.0-33.4); MEAN CORPUSCULAR VOLUME 87 fl (80-97); RED BLOOD COUNT 3.92 10^6/uL (3.72-5.28); RED CELL DISTRIBUTION WIDTH 13.7 % (11.5-14.0); WHITE BLOOD COUNT 15.3 10^3/uL (4.0-10.5)
[2016-05-26] MEDS: SENNOSIDES/DOCUSATE 8.6-50 MG 1 EACH TABLET PO SCH (10:59)
[2016-05-26] MEDS: DOCUSATE SODIUM 100 MG CAPSULE PO SCH ×2 (10:59→17:28)
[2016-05-26] MEDS: PRENATAL VITAMIN W-O CA NO5/FE FUMARATE/FA CAPSULE PO SCH (10:59)
[2016-05-26] MEDS: FERROUS SULFATE 325 MG TABLET PO SCH ×2 (10:59→17:28)
--- NOTE | 2016-05-26 14:52 | PDOC PROGRESS REPORT ---
Subjective-OB Subjective: Post Delivery Day: 21 year old. Denies any needs at this time Physical Exam (OB) Vital Signs: Temp Pulse Resp BP Pulse Ox 97.9 F 117 H 15 118/71 100 05/26/16 07:29 05/26/16 07:29 05/26/16 07:29 05/26/16 07:29 05/26/16 07:29 Intake & Output 05/25/16 05/26/16 05/27/16 06:59 06:59 06:59 Weight 81.65 kg - Lochia Lochia Amount: Scant < 10 ml Lochia Color: Rubra/Red - Abdomen Description: Soft, Round Hernia Present: No Fundal Description: Firm, Midline Fundal Height: u/u - u/2 Objective-Diagnostic Laboratory: 05/26/16 08:19 05/25/16 05/25/16 05/26/16 12:56 12:56 08:19 WBC 15.7 H 15.3 H RBC 4.54 3.92 Hgb 12.7 11.3 L Hct 40.0 34.3 L MCV 88 87 MCH 28.0 28.8 MCHC 31.8 L 33.0 RDW 13.8 13.7 Plt Count 142 L 127 L Seg Neutrophils % 84.8 H Lymphocytes % 9.0 L Monocytes % 5.9 Eosinophils % 0.1 Basophils % 0.2 Absolute Neutrophils 13.3 H Absolute Lymphocytes 1.4 Absolute Monocytes 0.9 Absolute Eosinophils 0.0 Absolute Basophils 0.0 Blood Type B POSITIVE Antibody Screen NEGATIVE
[2016-05-27] MEDS: IBUPROFEN 800 MG TABLET PO SCH ×2 (05:55→14:30)
--- NOTE | 2016-05-27 06:19 | L&D Current Admission ---
Current Admit Datetime Report Generated by CPN: 05/27/2016 06:00 ADMISSION INFORMATION Current Admit Date/Time: 05/25/2016 12:17 (05/25/2016 12:58:Melanie March RN) Reason for Admission: Onset of Labor; Rupture of Membranes (05/25/2016 12:58:Melanie March RN) Chief Complaint: Contractions (05/25/2016 12:58:Melanie March RN) EGA per Dates: 40.5 (05/25/2016 12:58:QS system process) EGA per US: 40.5 (05/25/2016 12:58:QS system process) Method of Arrival: Wheelchair (05/25/2016 12:58:Melanie March RN) Admitted From: Home (05/25/2016 12:58:Melanie March RN) Reason for Induction: Not Applicable (05/25/2016 12:58:Melanie March RN) Records Available: Yes (05/25/2016 12:58:Melanie March RN) General Admission Information: Reviewed; Confirmed (05/25/2016 12:58:Melanie March RN) General Admission Reviewed By: Best March RN (05/25/2016 12:58:Melanie March RN) BELONGINGS/ADVANCED DIRECTIVES Other Belongings: See belongings consent (05/25/2016 12:58:Melanie March RN) Disposition of Belongings: Kept with Patient (05/25/2016 12:58:Melanie March RN) Advance Direct for Healthcare: No, and Wants No Information (05/25/2016 12:58:Melanie March RN) Durable Power of Green Chain Offbearer: No (05/25/2016 12:58:Melanie March RN) Living Will: No (05/25/2016 12:58:Melanie March RN) Organ Donor: Yes (05/25/2016 12:58:Melanie March RN) Pt Rights Information Given: Yes (05/25/2016 12:58:Melanie March RN) Pt Understands Pt Rights: Yes (05/25/2016 12:58:Melanie March RN) LEARNING ASSESSMENT Knowledge Level: Understands L_D Process; Understands Diagnosis (05/25/2016 12:58:Melanie March RN) Barriers to Learning: Pain (05/25/2016 12:58:Melanie March RN) Learning Readiness: Motivated (05/25/2016 12:58:Melanie March RN) Learns Best By: 1 to 1 Instruction (05/25/2016 12:58:Melanie March RN) Learning Needs: Labor and Delivery Process; Pain Management; Symptoms to Report; Treatment Plan (05/25/2016 12:58:Melanie March RN) DOMESTIC VIOLANCE SCREENING Dom Viol Threatened/Hurt: No (05/25/2016 12:58:Melanie March RN) Hx of Abuse/Neglect past 2yrs: No (05/25/2016 12:58:Melanie March RN) Feel Unsafe Going Home: No (05/25/2016 12:58:Melanie March RN) Addt'l Observ Indicating Abuse: No (05/25/2016 12:58:Melanie March RN) Reason Unable to Complete Screen: N/A, Screen Completed (05/25/2016 12:58:Melanie March RN) Considered Personal Harm/Suicide: No (05/25/2016 12:58:Melanie March RN) NUTRITIONAL/FUNCTIONAL SCREENING Problem with Appetite >5 Days: No (05/25/2016 12:58:Melanie March RN) Chew/Swallow Difficulties: No (05/25/2016 12:58:Melanie March RN) Inappropriate Wt Gain/Loss: No (05/25/2016 12:58:Melanie March RN) Presence Skin Breakdown/Ulcer: No (05/25/2016 12:58:Melanie March RN) Special Diet: No (05/25/2016 12:58:Melanie March RN) Pt Requests Washer And Capper Machine Operator Visit: No (05/25/2016 12:58:Melanie March RN) Hx of Any of the Following?: N/A (05/25/2016 12:58:Melanie March RN) New Diagnosis of: N/A (05/25/2016 12:58:Melanie March RN) Requires Assist w/Ambulation: No (05/25/2016 12:58:Melanie March RN) Uses Assist Device to Ambulate: No (05/25/2016 12:58:Melanie March RN) Pt Requires Help w/ADL's: No (05/25/2016 12:58:Melanie March RN)
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
--- NOTE | 2016-05-27 06:32 | L&D Care Plan ---
LD CARE PLANS Datetime Report Generated by CPN: 05/27/2016 06:15 Datetime: 05/25/2016 12:38 Pain State: Risk For (EDGARDO Bhatia) Related To: Labor and Delivery Process (EDGARDO Bhatia) Goal(s): Patients Pain will be Assessed and Managed; Patient will Verbalize Adequate Relief of Pain or the Ability to [place] with Current Pain (EDGARDO Bhatia) Interventions: Assess Pain Severity on Scale of 0 (None) to 5 (Severe); Assess Type, Location and Intensity of Pain Each Time Client Reports Discomfort and Notify Provider if Unusal Pain Develops; Encourage Proper Breathing and Relaxation Techniques; Offer Alternatives Such as Repositioning, Calm Environment, Massages, Diversional Activities, Ice Pack, Splinting, and Ambulation; Administer Analgesics as Ordered; Assist with Epidural Placement as Appropriate; Evaluate Therapeutic Effectiveness of Medication and Treatments (EDGARDO Bhatia) Outcome: Patient will Report Absence or Relief of Pain Consistent with Established Pain Goal (EDGARDO Bhatia) Outcome: Patient will have a Decrease in Signs and Symptoms of Discomfort (EDGARDO Bhatia) Outcome: Pain will be Controlled During Procedures (EDGARDO Bhatia) Anxiety State: Actual (EDGARDO Bhatia) Related To: Labor and Delivery Process (EDGARDO Bhatia) Goal(s): Patient will have Decreased Anxiety and be able to Function at Acceptable Levels (EDGARDO Bhatia) Interventions: Assess Verbal and Nonverbal Behavioral Indicators of Anxiety; Assist Patient to Identify and Verbalize Symptoms of Anxiety; Identify and Demonstrate Techniques to Control Anxiety; Assist Patient with Coping Mechanisms to Manage Anxiety; Provide Theraputic Touch for the Patient; Explain to Patient, Using a Calm Reassuring Approach and Nonmedical Terms, All Activities, Procedures, and Concerns; Instruct Patient and Family about Post Discharge Care, Limitations, Symptoms to Report and Resources Available (EDGARDO Bhatia) Outcome: Patient will Identify, Verbalize and Demonstrate Techniques to Control Anxiety (EDGARDO Bhatia) Outcome: Patient's Posture, Facial Expressions, Gestures and Activity Level will Reflect Decreased Anxiety (EDGARDO Bhatia) Outcome: Patient will Verbalize a Sense of Control and/or Acceptance of the Situation (EDGARDO Bhatia) Outcome: Patient will Identify and Utilize Support Person (EDGARDO Bhatia) Knowledge Deficit State: Actual (EDGARDO Bhatia) Related To: Labor and Delivery Process; Surgical Procedures; Treatment and Procedures; Feeding and Care (EDGARDO Bhatia) Goal(s): Patient will Accurately Verbalize Understanding of Plan of Care and Treatment; Patient and Family will Accurately Verbalize Understanding of the Disease Process (EDGARDO Bhatia) Interventions: Assess Motivation and Willingness of Patient/Family to Learn; Assess Preferred Learning Mode: One to One Instruction, Reading, Videos, Group Discussion or Demonstration; Assess Barriers to Learning: Pain, Emotional State, Language Barrier, Cognitive Impairment, Visual or Hearing Deficits; Assess Patient and Family Knowledge of Disease Process, Medications and Treatment; Discuss Therapy and/or Treatment Options, Describe Rationale Behind Management, Therapy and Treatment Recommendations; Instruct Patient and Family on Signs and Symptoms to Report; Instruct Patient and Family on Medication Effects and Side Effects; Provide Appropriate and Timely Education Using Multiple Techniques; Provide Patient and Family with Support Group Information and Resources; Give Clear and Thorough Explanations and Demonstrations (EDGARDO Bhatia) Outcome: Patient and Family will Verbalize Understanding of Condition, Treatment and Signs and Symptoms to Report (EDGARDO Bhatia) Outcome: Patient will Identify Perceived Learning Needs and Express Motivation to Learn (EDGARDO Bhatia) Outcome: Patient will Verbalize Understanding of Desired Content, and/or Performs Desired Skill Prior to Discharge (EDGARDO Bhatia) Infection State: Risk For (EDGARDO Bhatia) Related To: Prolonged Labor or Induction; Premature/Prolonged Rupture of Membranes; Invasive Procedures (EDGARDO Bhatia) Goal(s): The Patient will be Free of Infection, Vital Signs Stable and Lab Work within Normal Parameters (EDGARDO Bhatia) Interventions: Instruct and Reinforce Proper Handwashing, Hygiene, and Care Techniques to Patient and Family; Monitor Vital Signs; Monitor Patient for the Following Signs of Infection: Fever, Abdominal Tenderness, Unusual Discharge; Monitor Aminiotic Fluid, Urine and Lochia for Color and Odor; Observe Wounds, Incisions and Invasive Line Sites for Redness, Drainage and Edema; Assess IV Sites per Hospital Policy; Monitor Lab and Test Results and Notify Provider of Abnormal Findings; Assess Nutritional Status and Promote Good Nutrition (EDGARDO Bhatia) Outcome: Patient will Remain Free of Infection (EDGARDO Bhatia) Outcome: Infection will be Recognized Early to Allow for Prompt Treatment (EDGARDO Bhatia) Outcome: Patient will have Vital Signs Within Expected Range (Annotations: Data stored by CPN on behalf of user) (EDGARDO Bhatia) Fluid Volume State: Risk For (EDGARDO Bhatia) Related To: Prolonged Labor or Induction (EDGARDO Bhatia) Goal(s): Patient will Achieve and Maintain a Balanced Fluid Volume Status; Hemodynamically Stable (EDGARDO Bhatia) Interventions: Monitor Vital Signs; Auscultate Breath Sounds; Monitor Patient for Skin Turgor, Mucous Membranes, Dry Skin, Weakness, Headaches and Confusion; Provide Oral Fluids as Ordered; Initiate and Maintain Intravenous Fluids as Ordered; Monitor Intake and Output as Indicated Per Patient Status; Accurately Measure Blood Loss; Monitor Lab and Test Results as Obtained and Notify Provider of Abnormal Findings; Monitor Patient's Weight (EDGARDO Bhatia) Outcome: Patient will have Clear Lung Sounds (EDGARDO Bhatia) Outcome: Patient will have Vital Signs within Expected Range (EDGARDO Bhatia) Outcome: Urine Output will be within Expected Range (EDGARDO Bhatia) Outcome: Patient will have Minimal Generalized or Upper Extremity Edema (EDGARDO Bhatia) Injury State: Not Applicable (EDGARDO Bhatia) Impaired Skin Integrity State: Not Applicable (EDGARDO Bahtia) Parenting Impaired State: Not Applicable (Ada Steve [facility])
[2016-05-27] MEDS: LEVOTHYROXINE SODIUM 0.1 MG TABLET PO SCH (07:22)
--- NOTE | 2016-05-27 09:43 | PDOC PROGRESS REPORT ---
Subjective-OB Subjective: Post Delivery Day: 21 year old. Denies any needs at this time Doing well, no c/o, holding baby, trying to get Circ paid for by cause FOB is in , , eating well, ambulating Physical Exam (OB) Vital Signs: Temp Pulse Resp BP Pulse Ox 98.0 F 77 17 111/63 98 05/27/16 08:40 05/27/16 08:40 05/27/16 08:40 05/26/16 20:02 05/27/16 08:40 Intake & Output 05/26/16 05/27/16 05/28/16 06:59 06:59 06:59 Weight 81.65 kg - Lochia Lochia Amount: Scant < 10 ml Lochia Color: Rubra/Red - Abdomen Description: Tender, Soft Hernia Present: No Fundal Description: Firm, Midline Fundal Height: u/u - u/2 Objective-Diagnostic Laboratory: 05/26/16 08:19 Assessment and Plan(PN) - Assessment and Plan (1) Vaginal delivery Is this a current diagnosis for this admission?: Yes (2) Hypothyroidism Qualifiers: Hypothyroidism type: unspecified Qualified Code(s): E03.9 - Hypothyroidism, unspecified Is this a current diagnosis for this admission?: Yes (3) Positive GBS test Is this a current diagnosis for this admission?: Yes (4) SROM (spontaneous rupture of membranes) Is this a current diagnosis for this admission?: Yes - Time Spent with Patient Time with patient: Less than 15 minutes Medications reviewed and adjusted accordingly: Yes - Disposition Anticipated Discharge: Home Within: Other - discharged home
--- NOTE | 2016-05-27 09:47 | PDOC DISCHARGE SUMMARY ---
Discharge Summary-OB Discharge Date: 05/27/16 - Final Diagnosis (1) Vaginal delivery Is this a current diagnosis for this admission?: Yes (2) Hypothyroidism Is this a current diagnosis for this admission?: Yes (3) Positive GBS test Is this a current diagnosis for this admission?: Yes (4) SROM (spontaneous rupture of membranes) Is this a current diagnosis for this admission?: Yes - Discharge Medication Home Medications: Levothyroxine Sodium 100 mcg PO DAILY 05/24/16 Pnv No.122/Iron/Folic Acid [ Multi Tablet] 1 each PO DAILY 05/24/16 Pnv W-O Ca No5/Fe Fumarate/FA [-U Multiple Vitamin Capsule] 1 cap PO DAILY #0 capsule 05/27/16 Gestational Age: 40.5 Reason(s) for Admission: Onset of Labor, PROM, Group B Strep Positive Procedures: NST, Ultrasound Intrapartum Procedure(s): Spontaneous Vaginal Delivery - Data Baby 1 Male at 1 minute: 8 at 5 minutes: 9 Weight: 3.459 kg Home with Mother: Yes Complications: No - Diagnosis Test Laboratory: Temp Pulse Resp BP Pulse Ox 98.0 F 77 17 111/63 98 05/27/16 08:40 05/27/16 08:40 05/27/16 08:40 05/26/16 20:02 05/27/16 08:40 05/25/16 05/25/16 05/26/16 12:05 12:56 08:19 RBC 4.54 3.92 Hgb 12.7 11.3 L Hct 40.0 34.3 L Urine Opiates Screen NEGATIVE - Discharge information/Instructions Discharge Activity: Activity As Tolerated, Pelvic Rest, No tub bath Discharge Diet: As Tolerated, Regular Disposition: HOME, SELF-CARE Follow up with: [facility] in: Weeks
[2016-05-27] MEDS: PRENATAL VITAMIN W-O CA NO5/FE FUMARATE/FA CAPSULE PO SCH (09:58)
[2016-05-27] MEDS: DOCUSATE SODIUM 100 MG CAPSULE PO SCH ×2 (09:59→17:33)
[2016-05-27] MEDS: SENNOSIDES/DOCUSATE 8.6-50 MG 1 EACH TABLET PO SCH (09:59)
[2016-05-27] MEDS: FERROUS SULFATE 325 MG TABLET PO SCH ×2 (09:59→17:33)
[2016-05-27 14:21] VITALS: BP 131/74
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
--- NOTE | 2016-05-29 06:17 | L&D Current Admission ---
Current Admit Datetime Report Generated by CPN: 05/29/2016 06:00 ADMISSION INFORMATION Current Admit Date/Time: 05/25/2016 12:17 (05/25/2016 12:58:Melanie March RN) Reason for Admission: Onset of Labor; Rupture of Membranes (05/25/2016 12:58:Melanie March RN) Chief Complaint: Contractions (05/25/2016 12:58:Melanie March RN) EGA per Dates: 40.5 (05/25/2016 12:58:QS system process) EGA per US: 40.5 (05/25/2016 12:58:QS system process) Method of Arrival: Wheelchair (05/25/2016 12:58:Melanie March RN) Admitted From: Home (05/25/2016 12:58:Melanie March RN) Reason for Induction: Not Applicable (05/25/2016 12:58:Melanie March RN) Records Available: Yes (05/25/2016 12:58:Melanie March RN) General Admission Information: Reviewed; Confirmed (05/25/2016 12:58:Melanie March RN) General Admission Reviewed By: Best March RN (05/25/2016 12:58:Melanie March RN) BELONGINGS/ADVANCED DIRECTIVES Other Belongings: See belongings consent (05/25/2016 12:58:Melanie March RN) Disposition of Belongings: Kept with Patient (05/25/2016 12:58:Melanie March RN) Advance Direct for Healthcare: No, and Wants No Information (05/25/2016 12:58:Melanie March RN) Durable Power of Academic Counselor: No (05/25/2016 12:58:Melanie March RN) Living Will: No (05/25/2016 12:58:Melanie March RN) Organ Donor: Yes (05/25/2016 12:58:Melanie March RN) Pt Rights Information Given: Yes (05/25/2016 12:58:Melanie March RN) Pt Understands Pt Rights: Yes (05/25/2016 12:58:Melanie March RN) LEARNING ASSESSMENT Knowledge Level: Understands L_D Process; Understands Diagnosis (05/25/2016 12:58:Melanie March RN) Barriers to Learning: Pain (05/25/2016 12:58:Melanie March RN) Learning Readiness: Motivated (05/25/2016 12:58:Melanie March RN) Learns Best By: 1 to 1 Instruction (05/25/2016 12:58:Melanie March RN) Learning Needs: Labor and Delivery Process; Pain Management; Symptoms to Report; Treatment Plan (05/25/2016 12:58:Melanie March RN) DOMESTIC VIOLANCE SCREENING Dom Viol Threatened/Hurt: No (05/25/2016 12:58:Melanie March RN) Hx of Abuse/Neglect past 2yrs: No (05/25/2016 12:58:Melanie March RN) Feel Unsafe Going Home: No (05/25/2016 12:58:Melanie March RN) Addt'l Observ Indicating Abuse: No (05/25/2016 12:58:Melanie March RN) Reason Unable to Complete Screen: N/A, Screen Completed (05/25/2016 12:58:Melanie March RN) Considered Personal Harm/Suicide: No (05/25/2016 12:58:Melanie March RN) NUTRITIONAL/FUNCTIONAL SCREENING Problem with Appetite >5 Days: No (05/25/2016 12:58:Melanie March RN) Chew/Swallow Difficulties: No (05/25/2016 12:58:Melanie March RN) Inappropriate Wt Gain/Loss: No (05/25/2016 12:58:Melanie March RN) Presence Skin Breakdown/Ulcer: No (05/25/2016 12:58:Melanie March RN) Special Diet: No (05/25/2016 12:58:Melanie March RN) Pt Requests Food Expeditor Visit: No (05/25/2016 12:58:Melanie March RN) Hx of Any of the Following?: N/A (05/25/2016 12:58:Melanie March RN) New Diagnosis of: N/A (05/25/2016 12:58:Melanie March RN) Requires Assist w/Ambulation: No (05/25/2016 12:58:Melanie March RN) Uses Assist Device to Ambulate: No (05/25/2016 12:58:Melanie March RN) Pt Requires Help w/ADL's: No (05/25/2016 12:58:Melanie March RN)
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
--- NOTE | 2016-05-30 06:16 | L&D Current Admission ---
Current Admit Datetime Report Generated by CPN: 05/30/2016 06:00 ADMISSION INFORMATION Current Admit Date/Time: 05/25/2016 12:17 (05/25/2016 12:58:Melanie March RN) Reason for Admission: Onset of Labor; Rupture of Membranes (05/25/2016 12:58:Melanie March RN) Chief Complaint: Contractions (05/25/2016 12:58:Melanie March RN) EGA per Dates: 40.5 (05/25/2016 12:58:QS system process) EGA per US: 40.5 (05/25/2016 12:58:QS system process) Method of Arrival: Wheelchair (05/25/2016 12:58:Melanie March RN) Admitted From: Home (05/25/2016 12:58:Melanie March RN) Reason for Induction: Not Applicable (05/25/2016 12:58:Melanie March RN) Records Available: Yes (05/25/2016 12:58:Melanie March RN) General Admission Information: Reviewed; Confirmed (05/25/2016 12:58:Melanie March RN) General Admission Reviewed By: Best March RN (05/25/2016 12:58:Melanie March RN) BELONGINGS/ADVANCED DIRECTIVES Other Belongings: See belongings consent (05/25/2016 12:58:Melanie March RN) Disposition of Belongings: Kept with Patient (05/25/2016 12:58:Melanie March RN) Advance Direct for Healthcare: No, and Wants No Information (05/25/2016 12:58:Melanie March RN) Durable Power of Sales And Marketing Associate: No (05/25/2016 12:58:Melanie March RN) Living Will: No (05/25/2016 12:58:Melanie March RN) Organ Donor: Yes (05/25/2016 12:58:Melanie March RN) Pt Rights Information Given: Yes (05/25/2016 12:58:Melanie March RN) Pt Understands Pt Rights: Yes (05/25/2016 12:58:Melanie March RN) LEARNING ASSESSMENT Knowledge Level: Understands L_D Process; Understands Diagnosis (05/25/2016 12:58:Melanie March RN) Barriers to Learning: Pain (05/25/2016 12:58:Melanie March RN) Learning Readiness: Motivated (05/25/2016 12:58:Melanie March RN) Learns Best By: 1 to 1 Instruction (05/25/2016 12:58:Melanie March RN) Learning Needs: Labor and Delivery Process; Pain Management; Symptoms to Report; Treatment Plan (05/25/2016 12:58:Melanie March RN) DOMESTIC VIOLANCE SCREENING Dom Viol Threatened/Hurt: No (05/25/2016 12:58:Melanie March RN) Hx of Abuse/Neglect past 2yrs: No (05/25/2016 12:58:Melanie March RN) Feel Unsafe Going Home: No (05/25/2016 12:58:Melanie March RN) Addt'l Observ Indicating Abuse: No (05/25/2016 12:58:Melanie March RN) Reason Unable to Complete Screen: N/A, Screen Completed (05/25/2016 12:58:Melanie March RN) Considered Personal Harm/Suicide: No (05/25/2016 12:58:Melanie March RN) NUTRITIONAL/FUNCTIONAL SCREENING Problem with Appetite >5 Days: No (05/25/2016 12:58:Melanie March RN) Chew/Swallow Difficulties: No (05/25/2016 12:58:eMlanie March RN) Inappropriate Wt Gain/Loss: No (05/25/2016 12:58:Melanie March RN) Presence Skin Breakdown/Ulcer: No (05/25/2016 12:58:Melanie March RN) Special Diet: No (05/25/2016 12:58:Melanie March RN) Pt Requests Wharf Tally Clerk Visit: No (05/25/2016 12:58:Melanie March RN) Hx of Any of the Following?: N/A (05/25/2016 12:58:Melanie March RN) New Diagnosis of: N/A (05/25/2016 12:58:Melanie March RN) Requires Assist w/Ambulation: No (05/25/2016 12:58:Melanie March RN) Uses Assist Device to Ambulate: No (05/25/2016 12:58:Melanie March RN) Pt Requires Help w/ADL's: No (05/25/2016 12:58:Melanie March RN)
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
--- NOTE | 2016-05-31 06:16 | L&D Current Admission ---
Current Admit Datetime Report Generated by CPN: 05/31/2016 06:00 ADMISSION INFORMATION Current Admit Date/Time: 05/25/2016 12:17 (05/25/2016 12:58:Melanie March RN) Reason for Admission: Onset of Labor; Rupture of Membranes (05/25/2016 12:58:Melanie March RN) Chief Complaint: Contractions (05/25/2016 12:58:Melanie March RN) EGA per Dates: 40.5 (05/25/2016 12:58:QS system process) EGA per US: 40.5 (05/25/2016 12:58:QS system process) Method of Arrival: Wheelchair (05/25/2016 12:58:Melanie March RN) Admitted From: Home (05/25/2016 12:58:Melanie March RN) Reason for Induction: Not Applicable (05/25/2016 12:58:Melanie March RN) Records Available: Yes (05/25/2016 12:58:Melanie March RN) General Admission Information: Reviewed; Confirmed (05/25/2016 12:58:Melanie March RN) General Admission Reviewed By: Best March RN (05/25/2016 12:58:Melanie March RN) BELONGINGS/ADVANCED DIRECTIVES Other Belongings: See belongings consent (05/25/2016 12:58:Melanie March RN) Disposition of Belongings: Kept with Patient (05/25/2016 12:58:Melanie March RN) Advance Direct for Healthcare: No, and Wants No Information (05/25/2016 12:58:Melanie March RN) Durable Power of Miniature Train Driver: No (05/25/2016 12:58:Melanie March RN) Living Will: No (05/25/2016 12:58:Melanie March RN) Organ Donor: Yes (05/25/2016 12:58:Melanie March RN) Pt Rights Information Given: Yes (05/25/2016 12:58:Melanie March RN) Pt Understands Pt Rights: Yes (05/25/2016 12:58:Melanie March RN) LEARNING ASSESSMENT Knowledge Level: Understands L_D Process; Understands Diagnosis (05/25/2016 12:58:Melanie March RN) Barriers to Learning: Pain (05/25/2016 12:58:Melanie March RN) Learning Readiness: Motivated (05/25/2016 12:58:Melanie March RN) Learns Best By: 1 to 1 Instruction (05/25/2016 12:58:Melanie March RN) Learning Needs: Labor and Delivery Process; Pain Management; Symptoms to Report; Treatment Plan (05/25/2016 12:58:Melanie March RN) DOMESTIC VIOLANCE SCREENING Dom Viol Threatened/Hurt: No (05/25/2016 12:58:Melanie March RN) Hx of Abuse/Neglect past 2yrs: No (05/25/2016 12:58:Melanie March RN) Feel Unsafe Going Home: No (05/25/2016 12:58:Melanie March RN) Addt'l Observ Indicating Abuse: No (05/25/2016 12:58:Melanie March RN) Reason Unable to Complete Screen: N/A, Screen Completed (05/25/2016 12:58:Melanie March RN) Considered Personal Harm/Suicide: No (05/25/2016 12:58:Melanie March RN) NUTRITIONAL/FUNCTIONAL SCREENING Problem with Appetite >5 Days: No (05/25/2016 12:58:Melanie March RN) Chew/Swallow Difficulties: No (05/25/2016 12:58:Melaine March RN) Inappropriate Wt Gain/Loss: No (05/25/2016 12:58:Melanie March RN) Presence Skin Breakdown/Ulcer: No (05/25/2016 12:58:Melanie March RN) Special Diet: No (05/25/2016 12:58:Melanie March RN) Pt Requests Nut Picker Visit: No (05/25/2016 12:58:Melanie March RN) Hx of Any of the Following?: N/A (05/25/2016 12:58:Melanie March RN) New Diagnosis of: N/A (05/25/2016 12:58:Melanie March RN) Requires Assist w/Ambulation: No (05/25/2016 12:58:Melanie March RN) Uses Assist Device to Ambulate: No (05/25/2016 12:58:Melanie March RN) Pt Requires Help w/ADL's: No (05/25/2016 12:58:Melanie March RN)
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
--- NOTE | 2016-06-01 18:20 | L&D Current Admission ---
Current Admit Datetime Report Generated by CPN: 06/01/2016 18:00 ADMISSION INFORMATION Current Admit Date/Time: 05/25/2016 12:17 (05/25/2016 12:58:Melanie March RN) Reason for Admission: Onset of Labor; Rupture of Membranes (05/25/2016 12:58:Melanie March RN) Chief Complaint: Contractions (05/25/2016 12:58:Melanie March RN) EGA per Dates: 40.5 (05/25/2016 12:58:QS system process) EGA per US: 40.5 (05/25/2016 12:58:QS system process) Method of Arrival: Wheelchair (05/25/2016 12:58:Melanie March RN) Admitted From: Home (05/25/2016 12:58:Melanie March RN) Reason for Induction: Not Applicable (05/25/2016 12:58:Melanie March RN) Records Available: Yes (05/25/2016 12:58:Melanie March RN) General Admission Information: Reviewed; Confirmed (05/25/2016 12:58:Melanie March RN) General Admission Reviewed By: Best March RN (05/25/2016 12:58:Melanie March RN) BELONGINGS/ADVANCED DIRECTIVES Other Belongings: See belongings consent (05/25/2016 12:58:Melanie March RN) Disposition of Belongings: Kept with Patient (05/25/2016 12:58:Melanie March RN) Advance Direct for Healthcare: No, and Wants No Information (05/25/2016 12:58:Melanie March RN) Durable Power of Barkeeper: No (05/25/2016 12:58:Melanie March RN) Living Will: No (05/25/2016 12:58:Melanie March RN) Organ Donor: Yes (05/25/2016 12:58:Melanie March RN) Pt Rights Information Given: Yes (05/25/2016 12:58:Melanie March RN) Pt Understands Pt Rights: Yes (05/25/2016 12:58:Melanie March RN) LEARNING ASSESSMENT Knowledge Level: Understands L_D Process; Understands Diagnosis (05/25/2016 12:58:Melanie March RN) Barriers to Learning: Pain (05/25/2016 12:58:Melanie March RN) Learning Readiness: Motivated (05/25/2016 12:58:Melanie March RN) Learns Best By: 1 to 1 Instruction (05/25/2016 12:58:Melanie March RN) Learning Needs: Labor and Delivery Process; Pain Management; Symptoms to Report; Treatment Plan (05/25/2016 12:58:Melanie March RN) DOMESTIC VIOLANCE SCREENING Dom Viol Threatened/Hurt: No (05/25/2016 12:58:Melanie March RN) Hx of Abuse/Neglect past 2yrs: No (05/25/2016 12:58:Melanie March RN) Feel Unsafe Going Home: No (05/25/2016 12:58:Melanie March RN) Addt'l Observ Indicating Abuse: No (05/25/2016 12:58:Melanie March RN) Reason Unable to Complete Screen: N/A, Screen Completed (05/25/2016 12:58:Melanie March RN) Considered Personal Harm/Suicide: No (05/25/2016 12:58:Melanie March RN) NUTRITIONAL/FUNCTIONAL SCREENING Problem with Appetite >5 Days: No (05/25/2016 12:58:Melanie March RN) Chew/Swallow Difficulties: No (05/25/2016 12:58:Melanie March RN) Inappropriate Wt Gain/Loss: No (05/25/2016 12:58:Melanie March RN) Presence Skin Breakdown/Ulcer: No (05/25/2016 12:58:Melanie March RN) Special Diet: No (05/25/2016 12:58:Melanie March RN) Pt Requests Drafter Detail Visit: No (05/25/2016 12:58:Melanie March RN) Hx of Any of the Following?: N/A (05/25/2016 12:58:Melanie March RN) New Diagnosis of: N/A (05/25/2016 12:58:Melanie March RN) Requires Assist w/Ambulation: No (05/25/2016 12:58:Melanie March RN) Uses Assist Device to Ambulate: No (05/25/2016 12:58:Melanie Marhc RN) Pt Requires Help w/ADL's: No (05/25/2016 12:58:Melanie March RN)
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
--- NOTE | 2016-06-02 06:20 | L&D Current Admission ---
Current Admit Datetime Report Generated by CPN: 06/02/2016 06:00 ADMISSION INFORMATION Current Admit Date/Time: 05/25/2016 12:17 (05/25/2016 12:58:Melanie March RN) Reason for Admission: Onset of Labor; Rupture of Membranes (05/25/2016 12:58:Melanie March RN) Chief Complaint: Contractions (05/25/2016 12:58:Melanie March RN) EGA per Dates: 40.5 (05/25/2016 12:58:QS system process) EGA per US: 40.5 (05/25/2016 12:58:QS system process) Method of Arrival: Wheelchair (05/25/2016 12:58:Melanie March RN) Admitted From: Home (05/25/2016 12:58:Melanie March RN) Reason for Induction: Not Applicable (05/25/2016 12:58:Melanie March RN) Records Available: Yes (05/25/2016 12:58:Melanie March RN) General Admission Information: Reviewed; Confirmed (05/25/2016 12:58:Melanie March RN) General Admission Reviewed By: Best March RN (05/25/2016 12:58:Melanie March RN) BELONGINGS/ADVANCED DIRECTIVES Other Belongings: See belongings consent (05/25/2016 12:58:Melanie March RN) Disposition of Belongings: Kept with Patient (05/25/2016 12:58:Melanie March RN) Advance Direct for Healthcare: No, and Wants No Information (05/25/2016 12:58:Melanie March RN) Durable Power of Metal Melter: No (05/25/2016 12:58:Melanie March RN) Living Will: No (05/25/2016 12:58:Melanie March RN) Organ Donor: Yes (05/25/2016 12:58:Melanie March RN) Pt Rights Information Given: Yes (05/25/2016 12:58:Melanie March RN) Pt Understands Pt Rights: Yes (05/25/2016 12:58:Melanie aMrch RN) LEARNING ASSESSMENT Knowledge Level: Understands L_D Process; Understands Diagnosis (05/25/2016 12:58:Melanie March RN) Barriers to Learning: Pain (05/25/2016 12:58:Melanie March RN) Learning Readiness: Motivated (05/25/2016 12:58:Melanie March RN) Learns Best By: 1 to 1 Instruction (05/25/2016 12:58:Melanie March RN) Learning Needs: Labor and Delivery Process; Pain Management; Symptoms to Report; Treatment Plan (05/25/2016 12:58:Melanie March RN) DOMESTIC VIOLANCE SCREENING Dom Viol Threatened/Hurt: No (05/25/2016 12:58:Melanie March RN) Hx of Abuse/Neglect past 2yrs: No (05/25/2016 12:58:Melanie March RN) Feel Unsafe Going Home: No (05/25/2016 12:58:Melanie March RN) Addt'l Observ Indicating Abuse: No (05/25/2016 12:58:Melanie March RN) Reason Unable to Complete Screen: N/A, Screen Completed (05/25/2016 12:58:Melanie March RN) Considered Personal Harm/Suicide: No (05/25/2016 12:58:Melanie March RN) NUTRITIONAL/FUNCTIONAL SCREENING Problem with Appetite >5 Days: No (05/25/2016 12:58:Melanie March RN) Chew/Swallow Difficulties: No (05/25/2016 12:58:Melanie March RN) Inappropriate Wt Gain/Loss: No (05/25/2016 12:58:Melanie March RN) Presence Skin Breakdown/Ulcer: No (05/25/2016 12:58:Melanie March RN) Special Diet: No (05/25/2016 12:58:Melanie March RN) Pt Requests Ship Laborer Visit: No (05/25/2016 12:58:Melanie March RN) Hx of Any of the Following?: N/A (05/25/2016 12:58:Melanie March RN) New Diagnosis of: N/A (05/25/2016 12:58:Melanie March RN) Requires Assist w/Ambulation: No (05/25/2016 12:58:Melanie March RN) Uses Assist Device to Ambulate: No (05/25/2016 12:58:Melanie March RN) Pt Requires Help w/ADL's: No (05/25/2016 12:58:Melanie March RN)
== END 2016-05-27 18:28 | disposition home or self-care (01) | DRG 775 ==
LOC: LC 11:57 → LR 12:45 → 2S 22:45
PROVIDERS: ADMIT Obstetrics & Gynecology; ATTEND Obstetrics & Gynecology
PROC: 10E0XZZ Delivery of Products of Conception, External Approach (ICD-10-PCS; principal; 2016-05-25)
PROC: 4A1HXCZ Monitoring of Products of Conception, Cardiac Rate, External Approach (ICD-10-PCS; 2016-05-25)
DX: O77.0 Labor and delivery complicated by meconium in amniotic fluid (principal); O99.824 Streptococcus B carrier state complicating childbirth; Z37.0 Single live birth; O99.284 Endocrine, nutritional and metabolic diseases complicating childbirth; E03.9 Hypothyroidism, unspecified; Z3A.40 40 weeks gestation of pregnancy; Z88.0 Allergy status to penicillin; Z87.891 Personal history of nicotine dependence
CPT/HCPCS: 36415; 80307; 81005; 84112; 85025; 85027; 86592; 86850; 86900; 86901; 94760; J2405; J2590; J3490